=== PATIENT | female | born 1960 | race Caucasian/White ===

== ENCOUNTER 2017-12-22 17:48 | Observation (INO) | payer OTHER ==
--- OUTSIDE RECORDS SUMMARY | 2017-12-22 17:51 | XMS REPORT | Clinical Summary ---
:1960 Author Organization [facility] Address [address] [place] [address] Care Team Providers Name Role Phone Asked, No Pcp Primary Care Provider Unavailable Allergies Active Allergy Reactions Severity Noted Date Comments Penicillins 04/10/2016 Current Medications Prescription Sig. Disp. Refills Start Date End Date Status HYDROcodone-acetamino Take 1 tablet by Active phen (NORCO) 10-325 mouth every 6 mg per tablet (six) hours as needed for moderate pain. albuterol (PROAIR Inhale 2 puffs Active HFA,PROVENTIL every 6 (six) HFA,VENTOLIN HFA) 90 hours as needed mcg/actuation inhaler for wheezing. aspirin (ECOTRIN) 81 Take 81 mg by Active MG enteric coated mouth daily. tablet budesonide-formoterol Inhale 2 puffs 2 Active (SYMBICORT) 160-4.5 (two) times a mcg/actuation inhaler day. ferrous sulfate 325 Take 325 mg by Active (65 FE) MG tablet mouth daily with breakfast. furosemide (LASIX) 20 Take 20 mg by Active mg tablet mouth 2 (two) times a day. atorvastatin Take 80 mg by Active (LIPITOR) 80 MG mouth daily. tablet metoprolol tartrate Take 12.5 mg by Active (LOPRESSOR) 25 mg mouth 2 (two) tablet times a day. potassium chloride Take 20 mEq by Active (K-DUR) 20 MEQ CR mouth 2 (two) tablet times a day. FLUoxetine (PROzac) Take 20 mg by Active 20 MG capsule mouth daily. Take 3 tabs daily valACYclovir Take 1,000 mg by Active (VALTREX) 1000 MG mouth 3 (three) tablet times a day. azithromycin Take 1 tablet 5 tablet 0 05/17/2017 05/22/2017 (ZITHROMAX) 500 MG (500 mg total) tablet by mouth daily for 5 days. predniSONE Take 1 tablet 5 tablet 0 05/17/2017 05/22/2017 (DELTASONE) 50 mg (50 mg total) by tablet mouth daily for 5 days. albuterol (PROAIR Inhale 2 puffs 1 Inhaler 0 05/17/2017 06/16/2017 HFA,PROVENTIL every 4 (four) HFA,VENTOLIN HFA) 90 hours as needed mcg/actuation inhaler for wheezing for up to 30 days. Active Problems No known active problems Encounters Date Type Specialty Care Team Description 05/17/2017 Emergency Emergency Medicine Mark Bonilla COPD exacerbation MD César (Primary Dx) after 12/21/2016 Family History Medical History Relation Name Comments Diabetes Brother Heart disease Brother Heart disease Mother Relation Name Status Comments Brother Mother Social History Tobacco Use Types Packs/Day Years Used Date Former Smoker Smokeless Tobacco: Never Used Alcohol Use Drinks/Week oz/Week Comments No Sex Assigned at Date Recorded Not on file Last Filed Vital Signs Vital Sign Reading Time Taken Blood Pressure 128/77 05/17/2017 11:33 AM RETREADER Pulse 102 05/17/2017 12:15 PM RETREADER Temperature 37 C (98.6 F) 05/17/2017 11:33 AM RETREADER Respiratory Rate 24 05/17/2017 12:15 PM RETREADER Oxygen Saturation 93% 05/17/2017 12:10 PM RETREADER Inhaled Oxygen Concentration - - Weight - - Height 157.5 cm (5' 2") 05/17/2017 11:30 AM RETREADER Body Mass Index - - Plan of Treatment Health Maintenance Due Date Last Done Comments CERVICAL CANCER SCREENING 12/02/1979 BREAST CANCER SCREENING 2008 COLON CANCER SCREENING 2008 SHINGRIX VACCINE (#1) 2008 INFLUENZA VACCINE 11/06/2017 Procedures Procedure Name Priority Date/Time Associated Comments Diagnosis RESPIRATORY PATHOGEN STAT 05/17/2017 12:42 Results for this PANEL PM RETREADER procedure are in the results section. INFLUENZA ANTIGEN Routine 05/17/2017 12:42 Results for this PM RETREADER procedure are in the results section. ZZESTIMATED GFR STAT 05/17/2017 12:22 Results for this PM RETREADER procedure are in the results section. HC COMPLETE BLD COUNT STAT 05/17/2017 12:22 Results for this W/AUTO DIFF PM RETREADER procedure are in the results section. BASIC METABOLIC PANEL STAT 05/17/2017 12:22 Results for this PM RETREADER procedure are in the results section. XR CHEST 2 VW STAT 05/17/2017 12:09 Results for this PM RETREADER procedure are in the results section. after 12/21/2016 Results Respiratory pathogen panel (05/17/2017 12:42 PM) Respiratory pathogen Negative for all pathogens tested: [facility] DEPARTMENT OF panel Negative for Adenovirus PATHOLOGY AND GENOMIC Negative for Coronavirus HKU1 MEDICINE Negative for Coronavirus NL63 Negative for Coronavirus 229E Negative for Coronavirus OC43 Negative for Human Metapneumovirus Negative for Rhinovirus/Enterovirus Negative for Influenza A Negative for Influenza A/H1 Negative for Influenza A/H3 Negative for Influenza A/H1-2009 Negative for Influenza B Negative for Parainfluenza Virus 1 Negative for Parainfluenza Virus 2 Negative for Parainfluenza Virus 3 Negative for Parainfluenza Virus 4 Negative for Respiratory Syncytial Virus Negative for Bordetella pertussis Negative for Chlamydophila pneumoniae Negative for Mycoplasma pneumoniae This real-time PCR assay detects the presence of nucleic acids (RNA or DNA) for the respiratory pathogens listed. A result of "Not-detected" does not exclude the possibility of the presence of one or more pathogens at concentrations less than the detectable limits of the assay. Comment: Specimen Information Specimen Source: Nasopharyngeal Specimen Site: swab Specimen Nasopharyngeal Performing Organization Address City/State/Zipcode Phone Number [facility] DEPARTMENT OF PATHOLOGY AND [address] [place] [address] Group Therapy Records MEDICINE Influenza antigen (05/17/2017 12:42 PM) Influenza antigen Negative for Influenza A/B antigen. [facility] DEPARTMENT OF PATHOLOGY Comment: AND GENOMIC MEDICINE Specimen Information Specimen Source: Nares Specimen Site: Right Specimen Nares - Right Performing Organization Address City/State/Zipcode Phone Number [facility] DEPARTMENT OF PATHOLOGY AND [address] [place] [address] GENOMIC MEDICINE Estimated GFR (05/17/2017 12:22 PM) GFR Non Af Amer 74 mL/min/1.73 m2 [facility] DEPARTMENT OF PATHOLOGY AND GENOMIC MEDICINE GFR Af Amer 89 mL/min/1.73 m2 [facility] DEPARTMENT OF Comment: PATHOLOGY AND GENOMIC Chronic kidney disease: <60 mL/min/1.73m2 MEDICINE Kidney failure: <15 mL/min/1.73m2 The estimated GFR is calculated from the IDMS-traceable Modification of Diet in Renal Disease Equation. The accuracy of the calculation is poor when the creatinine is normal. Calculated values >90 mL/min/1.73m2 are not reported. This equation has not been validated in children (<18 years), women, the elderly (>70 years), or ethnic groups other than Caucasians and Americans. Specimen Plasma specimen Performing Organization Address City/State/Zipcode Phone Number [facility] DEPARTMENT OF PATHOLOGY AND [place] [address] [facility] CBC with platelet and differential (05/17/2017 12:22 PM) WBC 3.8 (L) 4.2 - 11.0 k/uL [facility] DEPARTMENT OF PATHOLOGY AND GENOMIC MEDICINE RBC 4.81 4.04 - 5.86 m/uL [facility] DEPARTMENT OF PATHOLOGY AND GENOMIC MEDICINE HGB 13.4 11.5 - 15.3 g/dL [facility] DEPARTMENT OF PATHOLOGY AND GENOMIC MEDICINE HCT 41.2 34.0 - 45.0 % [facility] DEPARTMENT OF PATHOLOGY AND GENOMIC MEDICINE MCV 85.7 80.0 - 98.0 fL [facility] DEPARTMENT OF PATHOLOGY AND GENOMIC MEDICINE MCH 27.9 27.0 - 34.0 pg [facility] DEPARTMENT OF PATHOLOGY AND GENOMIC MEDICINE MCHC 32.5 31.5 - 36.5 g/dL [facility] DEPARTMENT OF PATHOLOGY AND GENOMIC MEDICINE RDW - SD 45.5 37.0 - 51.0 fL [facility] DEPARTMENT OF PATHOLOGY AND GENOMIC MEDICINE MPV 10.2 7.4 - 10.4 fL [facility] DEPARTMENT OF PATHOLOGY AND GENOMIC MEDICINE Platelet count 140 (L) 150 - 400 k/uL [facility] DEPARTMENT OF PATHOLOGY AND GENOMIC MEDICINE Nucleated RBC 0.00 /100 WBC [facility] DEPARTMENT OF PATHOLOGY AND GENOMIC MEDICINE Neutrophils 70.0 (H) 36.0 - 66.0 % [facility] DEPARTMENT OF PATHOLOGY AND GENOMIC MEDICINE Lymphocytes 13.1 (L) 24.0 - 44.0 % [facility] DEPARTMENT OF PATHOLOGY AND GENOMIC MEDICINE Monocytes 13.1 (H) 0.0 - 6.0 % [facility] DEPARTMENT OF PATHOLOGY AND GENOMIC MEDICINE Eosinophils 2.4 0.0 - 6.0 % [facility] DEPARTMENT OF PATHOLOGY AND GENOMIC MEDICINE Basophils 1.1 0.0 - 1.2 % [facility] DEPARTMENT OF PATHOLOGY AND GENOMIC MEDICINE Immature granulocytes 0.3 0.0 - 1.0 % [facility] DEPARTMENT OF PATHOLOGY AND GENOMIC MEDICINE Specimen Blood Performing Organization Address City/[facility] Phone Number [facility] DEPARTMENT OF PATHOLOGY AND [address] [place] [address] [facility] Basic metabolic panel (05/17/2017 12:22 PM) Sodium 139 135 - 150 mEq/L [facility] DEPARTMENT OF PATHOLOGY AND GENOMIC MEDICINE Potassium 4.0 3.5 - 5.0 mEq/L [facility] DEPARTMENT OF PATHOLOGY AND GENOMIC MEDICINE Chloride 106 100 - 109 mEq/L [facility] DEPARTMENT OF PATHOLOGY AND GENOMIC MEDICINE CO2 26 24 - 32 mmol/L [facility] DEPARTMENT OF PATHOLOGY AND GENOMIC MEDICINE Anion gap 7 7 - 15 mEq/L [facility] DEPARTMENT OF Comment: PATHOLOGY AND GENOMIC Starting from July , anion gap calculation MEDICINE no longer incorporates potassium. Please note the change. BUN 12 7 - 18 mg/dL [facility] DEPARTMENT OF PATHOLOGY AND GENOMIC MEDICINE Creatinine 0.8 0.8 - 1.5 mg/dL [facility] DEPARTMENT OF PATHOLOGY AND GENOMIC MEDICINE Glucose 100 65 - 100 mg/dL [facility] DEPARTMENT OF PATHOLOGY AND GENOMIC MEDICINE Calcium 8.6 8.6 - 10.7 mg/dL [facility] DEPARTMENT OF PATHOLOGY AND GENOMIC MEDICINE Specimen Plasma specimen Performing Organization Address [facility] Phone Number [facility] DEPARTMENT OF PATHOLOGY AND [place] [address] [facility] XR Chest 2 Vw (05/17/2017 12:09 PM) Narrative Performed At EXAMINATION: XR CHEST 2 VW RADIANT INDICATION: Chest Pain COMPARISON: 05/26/2016 IMPRESSION: Emphysematous appearance of the lungs without a focal visible infiltrate. Persistent blunting of the right costophrenic sulcus likely represents focal pleural fibrosis. Heart size is within normal limits. Prior sternotomy. No effusion or pneumothorax. Multilevel spondylosis thoracic spine. Right upper quadrant surgical clips. [id number] Procedure Note Interface, Radiology Results Incoming - 05/17/2017 12:17 PM RETREADER EXAMINATION: XR CHEST 2 VW INDICATION: Chest Pain COMPARISON: 05/26/2016 IMPRESSION: Emphysematous appearance of the lungs without a focal visible infiltrate. Persistent blunting of the right costophrenic sulcus likely represents focal pleural fibrosis. Heart size is within normal limits. Prior sternotomy. No effusion or pneumothorax. Multilevel spondylosis thoracic spine. Right upper quadrant surgical clips. [id number] Performing Organization Address City/State/Zipcode Phone Number [facility] [address] [place] [address] after 12/21/2016 Insurance Payer Benefit Plan / Group Subscriber ID Type Phone Address [facility] MEDICAID [facility] COMM [employer]AR+ DOMINIQUE xxxxxxxxx O [phone] [place] [address]
[2017-12-22 19:00] LABS: Absolute Lymphocytes (CBC) 1.6 K/uL (0.7-4.9); Absolute Monocytes 0.6 K/uL (0.1-1.3); Absolute Neutrophil 4.7 K/uL (1.8-8.0); Basophils % 0.8 % (0-1.3); Eosinophils % 2.1 % (0-4.4); Hematocrit 40.3 % (36.0-45.0); Lymphocytes % 22.7 % (15.3-44.8); MCH 28.5 pg (27.0-35.0); MCV 84.9 fL (80-100); MPV 8.9 fL (7.6-11.3); Monocytes % 7.8 % (3.3-12.3); RBC Red Blood Cell Count 4.75 M/uL (3.86-4.86)
[2017-12-22 19:11] LABS: Protime INR 1.1
[2017-12-22 19:21] LABS: ALT/SGPT 25 U/L (12-78); AST/SGOT 23 U/L (15-37); Alkaline Phosphatase 113 U/L (45-117); BUN Blood Urea Nitrogen 13 mg/dL (7-18); Bicarbonate 27 mmol/L (21-32); Bilirubin Direct 0.1 mg/dL (0-0.2); Bilirubin Total 0.4 mg/dL (0.2-1.0); CKMB Creatine Kinase MB 1.3 ng/mL (0.3-3.6); Creatine Phosphokinase 104 U/L (26-192); Glucose Level 107 mg/dL (74-106); Magnesium 2.3 mg/dL (1.8-2.4); NT PRO-BNP 139 pg/mL (<125); Potassium 3.7 mmol/L (3.5-5.1); Protein, Total 7.1 g/dL (6.4-8.2); Sodium Level 144 mmol/L (136-145); Troponin (Emerg Dept Use Only) < 0.02 ng/mL (0.0-0.045)
--- NOTE | 2017-12-22 19:39 | RAD REPORT ---
EXAM DESCRIPTION: RAD - Chest Single View - 12/22/2017 7:00 pm CLINICAL HISTORY: Left-sided chest pain COMPARISON: None. TECHNIQUE: AP portable chest image was obtained 1854 hours . FINDINGS: Lungs are clear. Heart and vasculature are normal. Right costophrenic angle blunting is pr esent probably scarring rather than effusion. No pneumothorax. No gross bony abnormality seen. No acu te aortic findings suspected. CABG surgical changes are noted. IMPRESSION: No acute cardiopulmonary process.
--- NOTE | 2017-12-22 19:57 | EDPHYS ---
Physician Documentation [facility] Name: Olena Orourke Age: 57 yrs Sex: Female : 1960 Arrival Date: 12/22/2017 Time: 17:52 Bed 15 Private MD: None, None ED Physician Vilma Rock HPI: 12/22 18:05 This 57 yrs old Female presents to ER via Ambulatory with complaints of Chest jmm Pain, Hand Swelling. 18:05 The patient or guardian reports chest pain that is located primarily in the substernal jmm area. Onset: gradually, 2 day(s) ago. The pain radiates to the left scapula. Associated signs and symptoms: Pertinent positives: diaphoresis, shortness of breath. The chest pain is described as aching, a pressure. Duration: The patient or guardian reports a single episode, that is still ongoing. Modifying factors: The symptoms are alleviated by nothing. the symptoms are aggravated by exertion. This is a 57 year old female with a history COPD, HTN, GA that presents to the ED with substernal chest pain which radiates to the left scapular region beginning approx 2 days ago. Symptoms are worsened with exertion. . Patient also complains of pain and swelling to her left hand. Patient denies fever or trauma. Patient currently is taking plavix and aspirin daily. . Historical: - Allergies: 17:57 PENICILLINS; aa5 - Home Meds: 18:15 aspirin 325 mg Oral tab 1 tab once daily [Active]; lisinopril 2.5 mg Oral tab 1 tab tw2 once daily [Active]; carvedilol 6.25 mg oral tab 1 tab 2 times per day [Active]; clopidogrel 75 mg oral tab 1 tab once daily [Active]; atorvastatin 80 mg oral tab 1 tab once daily [Active]; Xopenex 0.63 mg/3 mL inhalation nebu [Active]; Prozac 20 mg Oral cap 1 cap 3 times a day [Active]; quetiapine 300 mg oral tab 1 tab once daily [Active]; - PMHx: 17:57 Hypertension; COPD; Myocardial infarction; aa5 - PSHx: 17:57 Heart stents; triple bypass; aa5 - Immunization history:: Adult Immunizations up to date. - Social history:: Smoking status: Patient uses tobacco products, denies chronic smoking, but will smoke occasionally. - Ebola Screening: : No symptoms or risks identified at this time. ROS: 18:05 Constitutional: Negative for fever, chills, and weight loss. jmm 18:05 Respiratory: Negative for shortness of breath, cough, wheezing, and pleuritic chest pain, Abdomen/GI: Negative for abdominal pain, nausea, vomiting, diarrhea, and constipation. 18:05 Cardiovascular: Positive for chest pain. 18:05 MS/extremity: Positive for pain. 18:05 All other systems are negative. Exam: 18:05 Head/Face: atraumatic. jmm 18:05 Constitutional: The patient appears in no acute distress, alert, awake. 18:05 Chest/axilla: Inspection: normal. 18:05 Cardiovascular: Rate: normal, Rhythm: regular. 18:05 Respiratory: the patient does not display signs of respiratory distress, Respirations: normal, Breath sounds: are clear throughout. 18:05 Abdomen/GI: Inspection: abdomen appears normal, Bowel sounds: normal, Palpation: abdomen is soft and non-tender, in all quadrants. 18:05 Musculoskeletal/extremity: ROM: intact in all extremities, ecchymosis noted to the left hand at the region of the 4th and 5th mtp, mild swelling is appreciated, painful flexion is appreciated, compartments are soft, NVI. 18:05 Skin: ecchymosis noted to the left hand. 18:05 Neuro: Orientation: is normal, Mentation: is normal, Memory: is normal. 18:05 Psych: Behavior/mood is pleasant, cooperative. Vital Signs: 17:58 BP 169 / 110; Pulse 104; Resp 20 S; Temp 98.1(O); Pulse Ox 97% on R/A; Weight 82.55 kg aa5 (R); Height 5 ft. 2 in. (157.48 cm) (R); Pain 8/10; 18:26 BP 163 / 106; Pulse 98; Resp 22; Pulse Ox 96% on R/A; tw2 19:27 BP 147 / 96; Pulse 92; Resp 16; Pulse Ox 97% on R/A; aa1 20:33 BP 144 / 95; Pulse 87; Resp 16; Pulse Ox 97% ; aa1 20:56 BP 134 / 86; Pulse 83; Resp 15; Pulse Ox 97% on R/A; aa1 17:58 Body Mass Index 33.29 (82.55 kg, 157.48 cm) aa5 MDM: 18:14 Patient medically screened. [facility] 19:56 Data reviewed: vital signs, nurses notes, lab test result(s), radiologic studies, plain [facility] films. Counseling: I had a detailed discussion with the patient and/or guardian regarding: the historical points, exam findings, and any diagnostic results supporting the discharge/admit diagnosis, lab results, radiology results, the need for further work-up and treatment in the hospital. ED course: I discussed the patient with Dr. Sears whom accepted admission. . 12/22 18:07 Order name: Basic Metabolic Panel; Complete Time: 19:24 [facility] 12/22 18:07 Order name: CBC with Diff; Complete Time: 19:20 [facility] 12/22 18:07 Order name: Ckmb; Complete Time: 19:24 [facility] 12/22 18:07 Order name: CPK; Complete Time: 19:24 [facility] 12/22 18:07 Order name: LFT's; Complete Time: 19:24 [facility] 12/22 18:07 Order name: Magnesium; Complete Time: 19:24 [facility] 12/22 18:07 Order name: NT PRO-BNP; Complete Time: 19:24 [facility] 12/22 18:07 Order name: PT-INR; Complete Time: 19:43 [facility] 12/22 18:07 Order name: Ptt, Activated; Complete Time: 19:43 [facility] 12/22 18:07 Order name: Troponin (emerg Dept Use Only); Complete Time: 19:24 [facility] 12/22 20:19 Order name: Basic Metabolic Panel [facility] 12/22 20:19 Order name: Basic Metabolic Panel [facility] 12/22 20:19 Order name: CBC with Automated Diff [facility] 12/22 20:19 Order name: CBC with Automated Diff [facility] 12/22 18:07 Order name: XRAY Chest (1 view); Complete Time: 19:43 [facility] 12/22 18:07 Order name: EKG; Complete Time: 18:08 [facility] 12/22 18:07 Order name: Cardiac monitoring; Complete Time: 18:13 [facility] 12/22 18:07 Order name: EKG - Nurse/Tech; Complete Time: 18:13 [facility] 12/22 20:19 Order name: CONS Physician Consult [facility] 12/22 20:19 Order name: Heart Healthy [facility] 12/22 20:19 Order name: Echo with Doppler [facility] 12/22 20:19 Order name: EKG Electrocardiogram [facility] 12/22 20:19 Order name: EKG Electrocardiogram [facility] 12/22 20:19 Order name: Lipid Profile [facility] 12/22 20:19 Order name: Lipid Profile [facility] 12/22 20:19 Order name: Troponin I [facility] 12/22 20:19 Order name: Troponin I [facility] 12/22 20:19 Order name: Troponin I [facility] 12/22 18:07 Order name: IV Saline Lock; Complete Time: 18:26 [facility] 12/22 18:07 Order name: Labs collected and sent; Complete Time: 18:26 [facility] 12/22 18:07 Order name: O2 Per Protocol; Complete Time: 18:26 [facility] 12/22 18:07 Order name: O2 Sat Monitoring; Complete Time: 18:26 [facility] Administered Medications: 20:02 Drug: morphine 4 mg Route: IVP; Site: left antecubital; ea 21:00 Follow up: Response: No adverse reaction; Pain is decreased aa1 20:02 Drug: Zofran 4 mg Route: IVP; Site: left antecubital; ea 21:00 Follow up: Response: No adverse reaction aa1 Disposition: 12/22/17 19:57 Hospitalization ordered by Vilma Sears for Observation. Preliminary diagnosis is Chest pain, unspecified. - Bed requested for Telemetry/MedSurg (observation). - Status is Observation. aa1 - Condition is Stable. - Problem is new. - Symptoms have improved. UTI on Admission? No Signatures: Dispatcher [employer] [facility] Minnie Burt RN VELMA Angela Watts RN RN aa1 Edison Hawkins PA PA m Candi Koenig, RN RN aa5 Nurys Smart, RN RN tw2 Caryn Elaine RN VELMA ea Corrections: (The following items were deleted from the chart) 20:04 19:57 Hospitalization Ordered by Vilma Sears MD for Observation. Preliminary diagnosis is Chest pain, unspecified. Bed requested for Telemetry/MedSurg (observation). Status is Observation. Condition is Stable. Problem is new. Symptoms have improved. UTI on Admission? No. [facility] 21:02 20:04 12/22/2017 19:57 Hospitalization Ordered by Vilma Sears MD for Observation. aa1 Preliminary diagnosis is Chest pain, unspecified. Bed requested for Telemetry/MedSurg (observation). Status is Observation. Condition is Stable. Problem is new. Symptoms have improved. UTI on Admission? No. mw
--- NOTE | 2017-12-22 19:57 | ER ---
Nurse's Notes [facility] Name: Olena Orourke Age: 57 yrs Sex: Female : 1960 Arrival Date: 12/22/2017 Time: 17:52 Bed 15 Private MD: None, None Diagnosis: Chest pain, unspecified Presentation: 12/22 17:55 Presenting complaint: Patient states: left breast pain radiating to left scapular area aa5 since yesterday. Pt also reports bruising to left hand, denies injury. Pt also reports dry cough and SOB. Transition of care: patient was not received from another setting of care. Onset of symptoms was December 2017. Risk Assessment: Do you want to hurt yourself or someone else? Patient reports no desire to harm self or others. Initial Sepsis Screen: Does the patient meet any 2 criteria? HR > 90 bpm. Does the patient have a suspected source of infection? No. Patient's initial sepsis screen is negative. Care prior to arrival: None. 17:55 Method Of Arrival: Ambulatory aa5 17:55 Acuity: ERIC 3 aa5 Historical: - Allergies: 17:57 PENICILLINS; aa5 - Home Meds: 18:15 aspirin 325 mg Oral tab 1 tab once daily [Active]; lisinopril 2.5 mg Oral tab 1 tab tw2 once daily [Active]; carvedilol 6.25 mg oral tab 1 tab 2 times per day [Active]; clopidogrel 75 mg oral tab 1 tab once daily [Active]; atorvastatin 80 mg oral tab 1 tab once daily [Active]; Xopenex 0.63 mg/3 mL inhalation nebu [Active]; Prozac 20 mg Oral cap 1 cap 3 times a day [Active]; quetiapine 300 mg oral tab 1 tab once daily [Active]; - PMHx: 17:57 Hypertension; COPD; Myocardial infarction; aa5 - PSHx: 17:57 Heart stents; triple bypass; aa5 - Immunization history:: Adult Immunizations up to date. - Social history:: Smoking status: Patient uses tobacco products, denies chronic smoking, but will smoke occasionally. - Ebola Screening: : No symptoms or risks identified at this time. Screenin:06 Abuse screen: Denies threats or abuse. Nutritional screening: No deficits noted. tw2 Tuberculosis screening: No symptoms or risk factors identified. Fall Risk None identified. Assessment: 18:04 General: Appears in no apparent distress. Behavior is anxious. Pain: Complains of pain tw2 in chest Pain radiates to left arm Pain began 2-3 days ago. Neuro: Level of Consciousness is awake, alert, obeys commands, Oriented to person, place, time, situation. Cardiovascular: Heart tones S1 S2 Capillary refill < 3 seconds Patient's skin is warm and dry. Respiratory: Airway is patent Respiratory effort is even, unlabored, Respiratory pattern is regular, symmetrical, Breath sounds are clear bilaterally. GI: No signs and/or symptoms were reported involving the gastrointestinal system. Abdomen is round non-distended, Bowel sounds present X 4 quads. : No signs and/or symptoms were reported regarding the genitourinary system. EENT: No signs and/or symptoms were reported regarding the EENT system. Derm: Bruising that is on left hand Parent/caregiver reports the patient having pain and swelling noted to left hand. Musculoskeletal: Circulation, motion, and sensation intact. Range of motion: intact in all extremities. 18:16 Reassessment: PCP: Dr. Aguayo #[phone] [facility]. [place] 19:33 Reassessment: Patient appears in no apparent distress at this time. Patient and/or aa1 family updated on plan of care and expected duration. Pain level reassessed. Patient is alert, oriented x 3, equal unlabored respirations, skin warm/dry/pink. Awaiting test resutlts. 20:35 Reassessment: Patient appears in no apparent distress at this time. Patient and/or aa1 family updated on plan of care and expected duration. Pain level reassessed. Patient is alert, oriented x 3, equal unlabored respirations, skin warm/dry/pink. Attempted to call report to 4th floor, was placed on hold with no answer. 20:45 Reassessment: Report given to Obdulia on 4th floor. aa1 Vital Signs: 17:58 BP 169 / 110; Pulse 104; Resp 20 S; Temp 98.1(O); Pulse Ox 97% on R/A; Weight 82.55 kg aa5 (R); Height 5 ft. 2 in. (157.48 cm) (R); Pain 8/10; 18:26 BP 163 / 106; Pulse 98; Resp 22; Pulse Ox 96% on R/A; tw2 19:27 BP 147 / 96; Pulse 92; Resp 16; Pulse Ox 97% on R/A; aa1 20:33 BP 144 / 95; Pulse 87; Resp 16; Pulse Ox 97% ; aa1 20:56 BP 134 / 86; Pulse 83; Resp 15; Pulse Ox 97% on R/A; aa1 17:58 Body Mass Index 33.29 (82.55 kg, 157.48 cm) aa5 ED Course: 17:52 Patient arrived in ED. mr 17:53 None, None is Private Physician. mr 17:55 Arm band placed on. aa5 17:57 Triage completed. aa5 18:00 Nurys Smart RN is Primary Nurse. tw2 18:00 Placed in gown. Bed in low position. Call light in reach. phototypesetting equipment monitor on. Pulse ox tw2 on. NIBP on. Warm blanket given. 18:00 Patient maintains SpO2 saturation greater than 95% on room air. tw2 18:07 Edison Hawkins PA is PHCP. [facility] 18:07 Vilma Rock MD is Attending Physician. [facility] 18:12 Patient has correct armband on for positive identification. Side rails up X 1. 5 18:12 EKG done, by ED staff, reviewed by Vilma Rock MD. [facility] 18:42 Missed attempt(s): 22 gauge in left in right antecubital area. [facility] 18:54 Report given to VELMA Miller. tw2 18:54 Inserted saline lock: 22 gauge in left antecubital area, using aseptic technique. Blood tw2 collected. 19:00 XRAY Chest (1 view) In Process Unspecified. EDMS 19:56 Vilma Sears MD is Hospitalizing Provider. m 20:34 No provider procedures requiring assistance completed. Patient admitted, IV remains in aa1 place. Administered Medications: 20:02 Drug: morphine 4 mg Route: IVP; Site: left antecubital; ea 21:00 Follow up: Response: No adverse reaction; Pain is decreased aa1 20:02 Drug: Zofran 4 mg Route: IVP; Site: left antecubital; ea 21:00 Follow up: Response: No adverse reaction [facility] Outcome: 19:57 Decision to Hospitalize by Provider. jmm 21:01 Admitted to Tele accompanied by tech, via wheelchair, room 406, with chart, Report aa1 called to Obdulia 21:01 Condition: stable 21:01 Instructed on the need for admit, Demonstrated understanding of instructions. 21:02 Patient left the ED. aa1 Signatures: Dispatcher [employer] EDMS Angela Watts, RN RN aa1 Edison Hawkins PA PA jmm Rivera, Maria mr AryaCandi, RN RN aa5 Ranulfo Nicolas RN RN la1 Wise, Tara, RN RN Roxann Oliver [facility] Caryn Elaine RN VELMA Corrections: (The following items were deleted from the chart) 21:02 20:56 BP 134 / 86; Pulse 83bpm; Resp 75bpm; Pulse Ox 97% RA; [facility]
[2017-12-22] MEDS ORDERED: ONDANSETRON 4 MG/2 ML VIAL ONE (20:02)
[2017-12-22] MEDS ORDERED: MORPHINE 4 MG/ML SYR ONE (20:02)
[2017-12-22] MEDS ORDERED: MORPHINE 4 MG/ML SYR IV PRN (20:16)
[2017-12-22] MEDS ORDERED: ALPRAZOLAM 0.25 MG TABLET PO PRN (20:16)
[2017-12-22] MEDS ORDERED: ACETAMINOPHEN 500 MG TAB PO PRN (20:53)
[2017-12-22] MEDS ORDERED: METOPROLOL TAR 50 MG TAB PO SCH (21:00)
[2017-12-22 22:44] VITALS: BMI 33.3
[2017-12-23] MEDS ORDERED: NA CHLORIDE 0.9% 500 ML IV ONE ×2 (00:18→01:18)
[2017-12-23] MEDS ORDERED: HYDROCORTISONE SUC 100 MG INJ IV ONE (01:17)
[2017-12-23] MEDS ORDERED: FENTANYL CITR 100 MCG/2 ML IV PRN (04:06)
--- NOTE | 2017-12-23 04:06 | P.HP ---
Certification for Inpatient Patient admitted to: Observation With expected LOS: <2 Midnights Patient will require the following post-hospital care: None Practitioner: I am a practitioner with admitting privileges, knowledge of patient current condition, hospital course, and medical plan of care. Services: Services provided to patient in accordance with Admission requirements found in Title 42 Section 412.3 of the Code of Federal Regulations Patient History Date of Service: 12/22/17 Reason for admission: Chest pain shortness of breath History of Present Illness: Patient is a 57-year-old female came into the hospital with chest discomfort. Patient also had shortness of breath. Patient's history of COPD and she has been using inhalers at home. She does continue to smoke but only is smoking 3 cigarettes a day now. She uses a gum puller in the [place] area. She also has been having chest pain. She has a history of coronary artery disease status post coronary artery bypass grafting x3 vessel. She did have a cardiac workup about a year ago which she states did not reveal any significant abnormalities. She does not have congestive heart failure. She does have bipolar disorder for which she takes Seroquel. Her chest pain was in the sternal region and radiated down to her left arm. She has some paresthesias in the left arm. So had a headache. The headache is more throbbing. She has been given pain medication which has not alleviated her chest pain. She will be admitted to the hospital for observation. Allergies Penicillins Allergy (Verified 12/22/17 20:32) Itching/Hives/Rash Home Medications: Aspirin [Aspirin EC 325 MG] 325 mg PO DAILY 12/22/17 Fluoxetine HCl [Prozac*] 20 mg PO TID 12/22/17 Levalbuterol Tartrate [Xopenex Hfa] 1 puff IN QID 12/22/17 RX: Atorvastatin Calcium [Lipitor] 80 mg PO DAILY 12/22/17 RX: Carvedilol [Coreg*] 6.25 mg PO BID 12/22/17 RX: Clopidogrel Bisulfate [Plavix*] 75 mg PO DAILY 12/22/17 RX: Lisinopril [Prinivil*] 2.5 mg PO DAILY 12/22/17 RX: Quetiapine [Seroquel*] 300 mg PO BEDTIME 12/22/17 - Past Medical/Surgical History Diabetic: No -: [place] 2014 -: HTN -: COPD -: triple bypass 2015 -: fusion in the neck - Family History Mother Medical History: Heart disease Father Medical History: Cancer Notes: colon Brother Medical History: Heart disease, Diabetes, Liver disease - Social History Smoking Status: Current every day smoker Alcohol use: No CD- Drugs: No Caffeine use: Yes Place of Residence: Home Physical Examination - Vital Signs Temperature: 97.1 F Blood Pressure: 85/55 Pulse: 65 Respirations: 75 Pulse Ox (%): 97 - Studies Laboratory Data (last 24 hrs) 12/22/17 18:50: PT 13.0 H, INR 1.10, APTT 38.2 H 12/22/17 18:50: WBC 7.1, Hgb 13.5, Hct 40.3, Plt Count 183 12/22/17 18:50: Sodium 144, Potassium 3.7, BUN 13, Creatinine 0.90, Glucose 107 H, Magnesium 2.3, Total Bilirubin 0.4, AST 23, ALT 25, Alkaline Phosphatase 113 Assessment & Plan - Plan Assessment: 1. Chest pain rule out acute coronary syndrome 2. COPD exacerbation, acute 3. Persistent headache 4. History of coronary artery disease status post CABG x3 5. History of tobacco use 6. History of bipolar disorder 7. History of hypertension 8. Hypotension at this time most likely related to medication Plan: 1. Serial troponins and EKG 2. Cardiology consultation 3. Echocardiogram and possible stress test in the morning if serial troponins and EKG are negative 4. Anti-platelet therapy, anti coagulation, beta-mehnaz, statin, and O2 as needed 5. Will give IV fentanyl for pain 6. Hold medications that may cause her blood pressure the lower including beta- mehnaz 7. Nicotine patches needed 8. Nebs and steroids for COPD exacerbation 9. Continue Seroquel 10. GI and DVT prophylaxis Check orthostatics in the morning & bolus IV fluids as needed for hypotension. If blood pressure continues to go down then we may need to check thyroid studies as well as adrenal studies. - Advance Directives Does patient have a Living Will: No Does patient have a Durable POA for Healthcare: No - Code Status/Comfort Care Code Status Assessed: Yes Code Status: Full Code Critical Care: No Time Spent Managing PTS Care (In Minutes): 50
[2017-12-23] MEDS ORDERED: NA CHLORIDE 0.9% 1,000 ML IV SCH (05:00)
[2017-12-23 05:34] LABS: Urine Appearance CLOUDY; Urine Bilirubin NEGATIVE (NEG); Urine Blood NEGATIVE (NEG); Urine Color YELLOW; Urine Glucose NEGATIVE (NEG); Urine Protein NEGATIVE (NEG); Urine Urobilinogen 0.2 mg/dL (0.2-1.0); Urine pH 5.5 (5.0-7.0)
[2017-12-23 05:35] LABS: Urine Microscopic Reflex ORDER UMIC
[2017-12-23 05:42] LABS: Urine Culture Reflex Order REFLEXED
[2017-12-23 05:43] LABS: Urine Bacteria LOADED /HPF (<20); Urine RBC <5 /HPF (NONE SEEN)
[2017-12-23 05:59] LABS: Absolute Lymphocytes (CBC) 0.7 K/uL (0.7-4.9); Absolute Monocytes 0.1 K/uL (0.1-1.3); Absolute Neutrophil 4.7 K/uL (1.8-8.0); Basophils % 0.5 % (0-1.3); Eosinophils % 0.7 % (0-4.4); Hematocrit 36.8 % (36.0-45.0); Lymphocytes % 13.2 % (15.3-44.8); MCV 84.7 fL (80-100); RBC Red Blood Cell Count 4.35 M/uL (3.86-4.86)
[2017-12-23] MEDS ORDERED: ALBUTEROL 2.5 MG/3 ML NEB SOL NEB SCH (06:00)
[2017-12-23] MEDS ORDERED: IPRATROPIUM BROM 0.5MG/2.5ML NEB SCH (06:00)
[2017-12-23] MEDS ORDERED: METHYLPREDNISOLONE 125 MG INJ IV SCH (06:00)
[2017-12-23 06:01] LABS: Potassium 4.1 mmol/L (3.5-5.1)
--- NOTE | 2017-12-23 06:51 | EKG ---
Test Date: 2017-12-22 Test Time: 18:03:54 Event Decorator And Designer: SHARLENE MEASUREMENT RESULTS: Intervals: Rate: 101 MI: 162 QRSD: 136 QT: 382 QTc: 495 [employer]: P: 61 MI: 162 QRS: 43 T: 48 INTERPRETIVE STATEMENTS: Sinus tachycardia Possible Left atrial enlargement Right bundle branch block Abnormal ECG No previous ECG available for comparison Electronically Signed On 12-23-17 06:50:55 CDT by Rubens Alex
[2017-12-23] MEDS ORDERED: REGADENOSON 0.4 MG/5 ML SYR IV ONE (07:54)
[2017-12-23 08:38] VITALS: BP 106/75; TEMP 97.5
[2017-12-23] MEDS ORDERED: METOPROLOL TAR 50 MG TAB PO SCH (09:00)
[2017-12-23] MEDS ORDERED: ASPIRIN EC 81 MG TAB PO SCH (09:00)
[2017-12-23] MEDS ORDERED: ENOXAPARIN 40 MG/0.4 ML SQ SCH (09:00)
[2017-12-23 11:22] VITALS: O2SAT 100
--- NOTE | 2017-12-23 12:31 | CON ---
Date of Consultation: 12/23/[address] Sears's service for chest pain on 12/22/2017. I saw the patient on 12/23/2017. History Of Present Illness: Mrs. Canseco is 57-year-old woman who has a history of coronary artery by pass surgery in March of 2016 at [facility]. She sees Dr. Turpin for Cardiology in [facility]. She underwent a triple-vessel bypass. Has had a history of PCI prior to this. Has hypertension , depression, dyslipidemia, COPD, and is under a lot of stress. She came in with left back scapular pain. No chest pain. Symptoms have been going on for 3 to 4 days. No nausea, vomiting, diaphoresis , PND, orthopnea, pedal edema, palpitations, or syncope. Already ruled out for an IL. Past Medical History: As stated above. Allergies: PENICILLIN. Review of Systems: Negative. Social History: Negative. Family History: Noncontributory. Medications: At home include aspirin, Plavix, Lipitor, Coreg, lisinopril, Xopenex, Seroquel, Prozac. Physical Examination: Vital Signs: Stable. Her initial pressure was 163/106. After she got treated, they went down to 85 /95, has 120 this morning systolic. No complaint. On examination, as per emergency room records, Dr Gregg Sears's records were within normal limit. 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 She would love to have the testing done here and wanted to go home and I concurred wi th her. Impression And Plan: 1.Atypical chest pain, most likely musculoskeletal. 2.History of coronary artery disease that is stable. 3.Status post coronary bypass surgery and percutaneous coronary intervention that is stable. 4.Hypertension. 5.Depression. 6.Dyslipidemia. 7.Chronic obstructive pulmonary disease. I will discuss the case further with Dr. Sears. She can go home whenever it is okay with him. CAITLIN/YON Voice ID: [id number] Report ID: [id number]
--- NOTE | 2017-12-23 13:47 | P.SSS ---
Patient History Date of Service: 12/23/17 Reason for admission: Chest pain shortness of breath History of Present Illness: Patient is a 57-year-old female came into the hospital with chest discomfort. Patient also had shortness of breath. Patient's history of COPD and she has been using inhalers at home. She does continue to smoke but only is smoking 3 cigarettes a day now. 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 She also has been having chest pain. She has a history of coronary artery disease status post coronary artery bypass grafting x3 vessel. She did have a cardiac workup about a year ago which she states did not reveal any significant abnormalities. She does not have congestive heart failure. She does have bipolar disorder for which she takes Seroquel. Her chest pain was in the sternal region and radiated down to her left arm. She has some paresthesias in the left arm. So had a headache. The headache is more throbbing. She has been given pain medication which has not alleviated her chest pain. She will be admitted to the hospital for observation. Allergies Penicillins Allergy (Verified 12/22/17 20:32) Itching/Hives/Rash Home Medications: Aspirin [Aspirin EC 325 MG] 325 mg PO DAILY 12/22/17 Atorvastatin Calcium [Lipitor] 80 mg PO DAILY 12/22/17 Carvedilol [Coreg*] 6.25 mg PO BID 12/22/17 Clopidogrel Bisulfate [Plavix*] 75 mg PO DAILY 12/22/17 Fluoxetine HCl [Prozac*] 20 mg PO TID 12/22/17 Levalbuterol Tartrate [Xopenex Hfa] 1 puff IN QID 12/22/17 Lisinopril [Prinivil*] 2.5 mg PO DAILY 12/22/17 Quetiapine [Seroquel*] 300 mg PO BEDTIME 12/22/17 - Past Medical/Surgical History Diabetic: No -: [place] 2014 -: HTN -: COPD -: triple bypass 2015 -: fusion in the neck - Family History Mother -: Heart disease Father -: Cancer Notes: colon Brother -: Heart disease, Diabetes, Liver disease - Social History Smoking Status: Current every day smoker Alcohol use: No CD- Drugs: No Caffeine use: Yes Place of Residence: Home Review of Systems 10-point ROS is otherwise unremarkable Physical Examination - Vital Signs Temperature: 97.5 F Blood Pressure: 106/75 Pulse: 68 Respirations: 18 Pulse Ox (%): 100 - Physical Exam General: Alert, In no apparent distress HEENT: Atraumatic, PERRLA, Mucous membr. moist/pink, EOMI, Sclerae nonicteric Neck: Supple, 2+ carotid pulse no bruit, No LAD, Without JVD or thyroid abnormality Respiratory: Clear to auscultation bilaterally, Normal air movement Cardiovascular: Regular rate/rhythm, Normal S1 S2 Gastrointestinal: Normal bowel sounds, No tenderness Musculoskeletal: No tenderness Integumentary: No rashes Neurological: Normal gait, Normal speech, Normal strength at 5/5 x4 extr, Normal tone, Normal affect Lymphatics: No axilla or inguinal lymphadenopathy - Studies Laboratory Data (last 24 hrs) 12/22/17 18:50: PT 13.0 H, INR 1.10, APTT 38.2 H 12/22/17 18:50: WBC 7.1, Hgb 13.5, Hct 40.3, Plt Count 183 12/22/17 18:50: Sodium 144, Potassium 3.7, BUN 13, Creatinine 0.90, Glucose 107 H, Magnesium 2.3, Total Bilirubin 0.4, AST 23, ALT 25, Alkaline Phosphatase 113 Treatment Summary: Discharge diagnosis 1. COPD exacerbation 2. Chest pain, atypical Hospital Course: Overall during the hospital stay patient remained stable Patient was initially admitted to the hospital for chest pain and discomfort. Cardiology was consulted who recommended patient get a stress test and echocardiogram done here in the hospital. Patient however choose to give them for cardial patient had zoroastrian and laser treatment here in the hospital. After which patient was discharged home under stable condition. Patient also had COPD exacerbation while here in the hospital was kept on duo nebs, steroids , oxygen here in the hospital. Was successfully weaned off of oxygen and was restarted back on her inhalers. Patient marked improvement in her symptoms and thus was discharged home under stable condition. - Disposition Disposition: ROUTINE DISCHARGE
[2017-12-23] MEDS ORDERED: QUETIAPINE 100MG TAB PO SCH (21:00)
== END 2017-12-23 11:23 | disposition home or self-care (01) ==
LOC: ER 17:48 → ERHOLD 19:58 → 4TH 20:47
PROVIDERS: ADMIT Hospitalist; ATTEND Hospitalist
DX: J44.1 Chronic obstructive pulmonary disease with (acute) exacerbation (principal); R07.89 Other chest pain; I25.10 Atherosclerotic heart disease of native coronary artery without angina pectoris; F31.9 Bipolar disorder, unspecified; I10 Essential (primary) hypertension; E78.5 Hyperlipidemia, unspecified; F17.210 Nicotine dependence, cigarettes, uncomplicated; I25.2 Old myocardial infarction; Z95.1 Presence of aortocoronary bypass graft; Z88.0 Allergy status to penicillin
CPT/HCPCS: 36415; 71045; 80048; 80061; 80076; 81003; 81015; 82550; 82553; 83735; 83880; 84484; 85025; 85610; 85730; 87077; 87086; 87088; 87186; 93005; 94640; 96374; 96375; 99285; G0378; J1650; J1720; J2405; J2785; J2930; J3010; J7030

== ENCOUNTER 2024-03-22 13:00 | Emergency (ER) | payer OTHER ==
--- NOTE | 2024-03-22 13:55 | RAD REPORT ---
Procedure: Chest Single View HISTORY: Cough COMPARISON: 2018 FINDINGS: The lungs appear clear of acute infiltrate.. Lungs are moderately hyperaerated. Post surgical changes involve No significant pleural effusion noted. The heart is normal size. IMPRESSION: Hyperaerated lungs consistent with COPD. No acute normality is displayed
[2024-03-22 14:25] LABS: Absolute Basophils 0.1 K/uL (0-0.5); Absolute Eosinophils 0.3 K/uL (0-0.5); Absolute Lymphocytes (CBC) 1.3 K/uL (0.7-4.9); Absolute Monocytes 0.4 K/uL (0.1-1.3); Absolute Neutrophil 4.8 K/uL (1.8-8.0); Basophils % 1.1 % (0-1.3); Eosinophils % 4.5 % (0-4.4); Hematocrit 49.8 % (36.0-45.0); Hemoglobin 16.2 g/dL (12.0-15.0); Lymphocytes % 18.9 % (15.3-44.8); MCHC 32.6 g/dL (32.0-36.0); MPV 8.7 fL (7.6-11.3); Monocytes % 5.6 % (3.3-12.3); Neutrophils % 69.9 % (41.7-73.7); Nucleated Red Blood Cells % 0.3 % (0-0); Platelets 170 thou/uL (152-406); RBC Red Blood Cell Count 5.79 M/uL (3.86-4.86); Red Cell Distribution Width 15.6 % (12.1-15.2)
[2024-03-22 14:33] LABS: Protime INR 1.35
[2024-03-22 14:45] LABS: Anion Gap 7.3 mEq/L (5.0-15.0); Troponin High Sensitivity 8.2 pg/mL (<58.9)
[2024-03-22 14:46] LABS: Potassium 4.3 mEq/L (3.5-5.1)
[2024-03-22] MEDS ORDERED: METHYLPREDNISOLONE 125 MG INJ ONE (15:44)
[2024-03-22] MEDS ORDERED: ALBUTEROL 2.5 MG/3 ML NEB SOL ONE (15:44)
[2024-03-22] MEDS ORDERED: IPRATROPIUM BROM 0.5MG/2.5ML ONE (15:44)
--- NOTE | 2024-03-22 16:08 | ER ---
Nurse's Notes [facility] Name: Olena Orourke Age: 63 yrs Sex: Female : 1960 Arrival Date: 03/22/2024 Time: 13:00 Bed 20 Private MD: Diagnosis: COPD/ Chronic obstructive pulmonary disease with (acute) exacerbation;Tobacco use Presentation: 03/22 13:12 Chief complaint: Patient states: SHORTNESS OF BREATH X1 MONTH. PT STATES THAT OVER THE cm10 LAST FEW DAYS IT HAS GOTTEN WORSE. PT REPORTS GENERALIZED CHEST PAIN THAT IS WORSE WHEN TAKING A DEEP BREATH. Coronavirus screen: Client denies travel out of the [place] in the last 14 days. Ebola Screen: Patient denies travel to an Ebola-affected area in the 21 days before illness onset. No symptoms or risks identified at this time. Initial Sepsis Screen: Does the patient meet any 2 criteria? HR > 90 bpm. Does the patient have a suspected source of infection? No. Patient's initial sepsis screen is negative. Risk Assessment: Do you want to hurt yourself or someone else? Patient reports no desire to harm self or others. Onset of symptoms was March 22, 2024. 13:12 Method Of Arrival: Ambulatory cm10 13:12 Acuity: ERIC 2 cm10 Historical: - Allergies: 13:13 PENICILLINS; cm10 - PMHx: 13:13 COPD; Hypertension; Myocardial infarction; Congestive heart failure; Diabetes mellitus; cm10 Atrial fibrillation; Hypercholesterolemia; - Immunization history:: Adult Immunizations up to date. - Infectious Disease History:: Denies. - Social history:: Smoking status: Patient reports the use of cigarette tobacco products, denies chronic smoking, but will smoke occasionally. Screenin:27 [facility] ED Fall Risk Assessment (Adult) History of falling in the last 3 months, db including since admission No falls in past 3 months (0 pts) Confusion or Disorientation No (0 pts) Intoxicated or Sedated No (0 pts) Impaired Gait No (0 pts) Mobility Assist Device Used No (0 pt) Altered Elimination No (0 pt) Score/Fall Risk Level 0 - 2 = Low Risk Oriented to surroundings, Maintained a safe environment. Abuse screen: Denies threats or abuse. Denies injuries from another. Nutritional screening: No deficits noted. Tuberculosis screening: No symptoms or risk factors identified. Assessment: 14:05 General: Appears in no apparent distress. uncomfortable, Behavior is calm, cooperative. db Pain: Denies pain. Neuro: Level of Consciousness is awake, alert, obeys commands, Oriented to person, place, time, situation. Cardiovascular: Rhythm is regular. Respiratory: Reports cough that is Airway is patent Respiratory effort is even, unlabored, Respiratory pattern is regular, symmetrical, Breath sounds are coarse. 16:27 Reassessment: Patient appears in no apparent distress at this time. Patient and/or db family updated on plan of care and expected duration. Pain level reassessed. Patient is alert, oriented x 3, equal unlabored respirations, skin warm/dry/pink. Reassessment: Patient states feeling better. Patient states symptoms have improved. General: Appears in no apparent distress. comfortable, Behavior is calm, cooperative. Vital Signs: 13:12 BP 129 / 88; Pulse 112; Resp 19; Temp 96.7(TE); Pulse Ox 93% on R/A; Weight 63.5 kg; cm10 Height 5 ft. 2 in. ; Pain 9/10; 14:05 BP 123 / 84; Pulse 109; Resp 16; Pulse Ox 95% on R/A; db 15:00 BP 138 / 95; Pulse 98; Resp 16; Pulse Ox 94% ; db 16:00 BP 130 / 90; Pulse 96; Resp 18; Pulse Ox 94% on R/A; db 13:12 Body Mass Index 25.60 (63.50 kg, 157.48 cm) cm10 13:12 Pain Scale: Adult cm10 Vitals: 16:00 Cardiac Rhythm Assessment Regular. db ED Course: 13:04 Patient arrived in ED. al6 13:13 Triage completed. cm10 13:14 Arm band placed on right wrist. Patient placed in waiting room. EKG completed in cm10 triage. Results shown to MD. 13:25 EKG done, by ED staff, reviewed by Familia Lehman MD. cm10 13:40 Genie Herrera, RN is Primary Nurse. db 13:46 XRAY Chest (1 view) In Process Unspecified. EDMS 14:16 Initial lab(s) drawn, by me, sent to lab. Missed attempt(s): 22 gauge in left upper db arm. Bleeding controlled, band aid applied, catheter tip intact. 14:20 Inserted saline lock: 22 gauge in right antecubital area, using aseptic technique. ll1 Flushed with 10 mL NS. 14:31 Familia Lehman MD is Attending Physician. bo1 16:27 Patient has correct armband on for positive identification. Bed in low position. Call db light in reach. Side rails up X 1. Provided Education on: DISCHARGE AND FOLLOWUP. Client placed on continuous cardiac and pulse oximetry monitoring. NIBP monitoring applied. ekg monitor tech on. Pulse ox on. NIBP on. Warm blanket given. Pillow given. 16:27 No provider procedures requiring assistance completed. IV discontinued, intact, db bleeding controlled, No redness/swelling at site. Administered Medications: 15:43 Drug: MethylPrednisoLONE IVP 125 mg IVP once Route: IVP; Site: right antecubital; db 16:29 Follow up: Response: No adverse reaction db 15:43 Drug: DuoNeb Nebulize (3:1) (2.5 mg - 0.5 mg) 3 ml Nebulizer once; give 1 duo-neb db Route: Nebulizer; 16:29 Follow up: Response: No adverse reaction db Medication: 16:27 VIS not applicable for this client. db Outcome: 16:07 Discharge ordered by . bo1 16:27 Discharged to home via wheelchair, with family, db 16:27 Condition: stable 16:27 Discharge instructions given to patient, family, Instructed on discharge instructions, follow up and referral plans. Prescriptions given X 2, 16:29 Patient left the ED. db Signatures: Dispatcher [employer] EDMS Anderson Roth RN RN ll1 Genie Herrera RN RN db Martinez, Clarissa, RN RN cm10 Familia Lehman MD MD boAngela Farmer al6
--- NOTE | 2024-03-22 16:08 | EDPHYS ---
Physician Documentation [facility] Name: Olena Orourke Age: 63 yrs Sex: Female : 1960 Arrival Date: 03/22/2024 Time: 13:00 Bed 20 Private MD: ED Physician Familia Lehman HPI: 03/22 15:55 This 63 yrs old Female presents to ER via Ambulatory with complaints of Shortness Of bo1 Breath. 15:55 The patient has shortness of breath at rest, with light activity, and the patient has a bo1 history of COPD, Oxygen concentrator broke/while moving 1 month ago. Onset: The symptoms/episode began/occurred gradually, yesterday. Duration: The symptoms are intermittent. Associated signs and symptoms: Pertinent positives: chest pain, non-productive cough, Sharp CP with coughing lately (Hx of sternotomy), Pertinent negatives: fever. The patient has experienced similar episodes in the past, and the symptoms today are exactly the same. No recent fever and pt still smokes \T\ 4-5 cigarettes per day. Historical: - Allergies: 13:13 PENICILLINS; cm10 - PMHx: 13:13 COPD; Hypertension; Myocardial infarction; Congestive heart failure; Diabetes mellitus; cm10 Atrial fibrillation; Hypercholesterolemia; - Immunization history:: Adult Immunizations up to date. - Infectious Disease History:: Denies. - Social history:: Smoking status: Patient reports the use of cigarette tobacco products, denies chronic smoking, but will smoke occasionally. ROS: 15:57 Constitutional: Negative for fever, chills, and weight loss bo1 15:57 Neck: Negative for pain with movement, pain at rest, 15:57 Cardiovascular: Positive for chest pain, with cough, 15:57 Respiratory: Positive for shortness of breath, 15:57 Abdomen/GI: Negative for abdominal pain, 15:57 MS/extremity: Negative for pain, swelling, 15:57 Skin: Negative for rash, 15:57 All other systems are negative, Exam: 16:00 Constitutional: This is a well developed, well nourished patient who is awake, alert, bo1 and in no acute distress. 16:00 Constitutional: The patient appears alert, awake, comfortable, non-toxic, 16:00 Eyes: Sclera: no acute changes, 16:00 Neck: External neck: is normal, no acute changes, 16:00 Chest/axilla: Inspection: normal, 16:00 Cardiovascular: Rate: tachycardic, Rhythm: regular, Pulses: no pulse deficits are appreciated, 16:00 ECG was reviewed by the Attending Physician. 16:00 Respiratory: the patient does not display signs of respiratory distress, Respirations: normal, Breath sounds: decreased breath sounds, are located in both bases, 16:00 Abdomen/GI: Inspection: abdomen appears normal, Palpation: soft, nontender, 16:00 Musculoskeletal/extremity: Calves: are non-tender, 16:00 Skin: no rash present. 16:00 Neuro: Exam negative for acute changes, Orientation: appropriate for stated age, Mentation: appropriate for stated age, Memory: appropriate for stated age, Vital Signs: 13:12 BP 129 / 88; Pulse 112; Resp 19; Temp 96.7(TE); Pulse Ox 93% on R/A; Weight 63.5 kg; cm10 Height 5 ft. 2 in. ; Pain 9/10; 14:05 BP 123 / 84; Pulse 109; Resp 16; Pulse Ox 95% on R/A; db 15:00 BP 138 / 95; Pulse 98; Resp 16; Pulse Ox 94% ; db 16:00 BP 130 / 90; Pulse 96; Resp 18; Pulse Ox 94% on R/A; db 13:12 Body Mass Index 25.60 (63.50 kg, 157.48 cm) cm10 13:12 Pain Scale: Adult cm10 MDM: 14:31 Medical Screening Exam initiated bo1 16:03 Differential diagnosis: Chronic Obstructive Pulmonary Disease pneumonia, reactive bo1 airway disease, Chest pain from coughing. Data reviewed: vital signs, lab test result(s), EKG, radiologic studies, plain films. ED course: Pt needs her concentrator will contact [employer] tomorrow to obtain replacement. She feels comfortable to go home and family agrees. 16:05 Response to treatment: the patient's symptoms have mildly improved after treatment. bo1 03/22 13:15 Order name: Basic Metabolic Panel; Complete Time: 15:06 cm10 15 13:15 Order name: CBC with Diff; Complete Time: 15:06 cm10 15 13:15 Order name: NT PRO-BNP; Complete Time: 15:06 cm10 03/22 13:15 Order name: PT-INR; Complete Time: 15:06 cm10 03/22 13:15 Order name: Troponin HS; Complete Time: 15:06 cm10 15 13:15 Order name: XRAY Chest (1 view); Complete Time: 15:06 cm10 15 13:15 Order name: Cardiac monitoring; Complete Time: 14:49 cm10 15 13:15 Order name: EKG - Nurse/Tech; Complete Time: 13:25 cm10 15 13:15 Order name: IV Saline Lock; Complete Time: 14:49 cm10 15 13:15 Order name: Labs collected and sent; Complete Time: 14:49 cm10 15 13:15 Order name: O2 Per Protocol; Complete Time: 14:49 cm10 15 13:15 Order name: O2 Sat Monitoring; Complete Time: 14:49 cm10 EC:00 Rate is 121 beats/min. Rhythm is regular. QRS [place] is Normal. LA interval is normal. bo1 QRS interval is normal. QT interval is normal. No Q waves. T waves are Normal. No ST changes noted. Clinical impression: Sinus tachycardia and with left axis and RBBB. Interpreted by me. Reviewed by me. Administered Medications: 15:43 Drug: MethylPrednisoLONE IVP 125 mg IVP once Route: IVP; Site: right antecubital; db 16:29 Follow up: Response: No adverse reaction db 15:43 Drug: DuoNeb Nebulize (3:1) (2.5 mg - 0.5 mg) 3 ml Nebulizer once; give 1 duo-neb db Route: Nebulizer; 16:29 Follow up: Response: No adverse reaction db Disposition Summary: 03/22/24 16:07 Discharge Ordered Notes: Location: Home bo1 Problem: an acute exacerbation bo1 Symptoms: have improved bo1 Condition: Stable bo1 Diagnosis - COPD/ Chronic obstructive pulmonary disease with (acute) exacerbation bo1 - Tobacco use bo1 Followup: bo1 - With: Private Physician - When: Upon discharge from the Emergency Department - Reason: Recheck today's complaints, Continuance of care Discharge Instructions: - Discharge Summary Sheet bo1 - Chronic Obstructive Pulmonary Disease Exacerbation bo1 - Cough, Adult, Eptd-jc-Awrr bo1 Forms: - Medication Reconciliation Form bo1 - Antibiotic Education bo1 - Prescription Opioid Use bo1 - Patient Portal Instructions bo1 - Leadership Thank You Letter bo1 Prescriptions: - Tessalon Perles 100 mg Oral capsule - take 1 capsule ORAL route every 8 hours As needed sub tessalon 200mg PO every bo1 6-8 hrs prn cough; 40 capsule; Refills: 0, Product Selection Permitted - Prednisone 20 mg Oral Tablet - take 2 tablets ORAL route once daily for 5 days; 10 tablet; Refills: 0, Product bo1 Selection Permitted Signatures: Dispatcher [employer] EDGenie Johnson RN RN db Meryl Polanco RN RN cm10 OeiFamilia MD MD bo1 Corrections: (The following items were deleted from the chart) 13:15 13:15 BASIC METABOLIC PANEL+C.LAB.BRZ ordered. EDMS EDMS 13:15 13:15 CBC+H.LAB.BRZ ordered. EDMS EDMS 13:15 13:15 PROBNP+C.LAB.BRZ ordered. EDMS EDMS 13:15 13:15 PROTIME (+INR)+COAG.LAB.BRZ ordered. EDMS EDMS 13:15 13:15 Troponin High Sensitivity+C.LAB.BRZ ordered. EDMS EDMS 13:15 13:15 Chest Single View+RAD.RAD.BRZ ordered. EDMS EDMS
[2024-03-22 16:44] VITALS: TEMP 96.7
[2024-03-22 16:55] VITALS: O2SAT 94
[2024-03-22 16:57] VITALS: BP 130/90
--- NOTE | 2024-03-24 12:03 | EKG ---
Test Date: 2024-03-22 Test Time: 13:19:22 Wood Grinder Operator: CHINEDU MEASUREMENT RESULTS: Intervals: Rate: 121 HI: 124 QRSD: 136 QT: 360 QTc: 511 [place]: P: 73 HI: 124 QRS: -36 T: 43 INTERPRETIVE STATEMENTS: Sinus tachycardia Left axis deviation Right bundle branch block Abnormal ECG Compared to ECG 12/22/2017 18:03:54 Left-axis deviation now present Electronically Signed On 03-24-24 12:01:58 EXECUTIVE DIRECTOR by Jabari Horton
== END 2024-03-22 16:29 | disposition home or self-care (01) ==
LOC: ER 13:00
DX: J44.1 Chronic obstructive pulmonary disease with (acute) exacerbation (principal); Z72.0 Tobacco use; I10 Essential (primary) hypertension; I48.91 Unspecified atrial fibrillation; I50.9 Heart failure, unspecified
CPT/HCPCS: 93005; 85025; 80048; 36415; 85610; 84484; 83880; 71045; 96374; 99285; J7613; J7644; J2919

== ENCOUNTER 2024-04-11 17:50 | Emergency (ER) | payer OTHER ==
--- NOTE | 2024-04-11 18:27 | RAD REPORT ---
EXAMINATION: ONE VIEW CHEST XR CLINICAL INDICATION: CHEST PAIN TECHNIQUE: Frontal chest projection is submitted. Examination is limited by patient positioning and t echnique. COMPARISON: 03/22/2024 FINDINGS: The lungs are diffusely emphysematous but grossly clear. The heart is normal in size. No displaced fr actures identified. Sternotomy wires. IMPRESSION: COPD without an acute process suspected.
--- NOTE | 2024-04-11 18:27 | RAD REPORT ---
EXAMINATION: LEFT RIB SERIES INDICATION: PAIN COMPARISON: None TECHNIQUE: Frontal and multiple oblique views of the LEFT ribs. FINDINGS: No displaced rib fracture is identified. No suspicious focal osseous lesion.. IMPRESSION: Negative rib series..
[2024-04-11] MEDS ORDERED: FENTANYL CITR 100 MCG/2 ML ONE (18:28)
[2024-04-11 18:46] LABS: Absolute Basophils 0.3 K/uL (0-0.5); Absolute Eosinophils 0.2 K/uL (0-0.5); Absolute Lymphocytes (CBC) 1.3 K/uL (0.7-4.9); Absolute Monocytes 0.5 K/uL (0.1-1.3); Absolute Neutrophil 7.5 K/uL (1.8-8.0); Basophils % 2.9 % (0-1.3); Eosinophils % 1.6 % (0-4.4); Hematocrit 49.2 % (36.0-45.0); Hemoglobin 16.4 g/dL (12.0-15.0); Lymphocytes % 13.7 % (15.3-44.8); MCH 28.6 pg (27.0-35.0); MCHC 33.3 g/dL (32.0-36.0); MCV 85.8 fL (80-100); MPV 7.9 fL (7.6-11.3); Monocytes % 5.5 % (3.3-12.3); Neutrophils % 76.3 % (41.7-73.7); Nucleated RBC Absolute Count 0.1 (0-0); Nucleated Red Blood Cells % 0.8 % (0-0); Platelets 213 thou/uL (152-406); RBC Red Blood Cell Count 5.73 M/uL (3.86-4.86); Red Cell Distribution Width 15.6 % (12.1-15.2)
--- NOTE | 2024-04-11 18:46 | RAD REPORT ---
EXAM: CT brain without contrast HISTORY: Headache;Weakness COMPARISON: None TECHNIQUE: Multiple contiguous axial images were obtained and a CT of the brain without contrast. Sag ittal and coronal reformats were performed. One or more of the following dose reduction techniques were used: Automated exposure control, adjust ment of the mA and/or kV according to patient size, and/or iterative reconstruction. FINDINGS: No evidence of hydrocephalus, intracranial hemorrhage, or extra-axial fluid collection. Mild brain atrophy with mild periventricular and deep white matter chronic microvascular ischemic ch anges present. No evidence of midline shift or areas of brain edema. The calvarium is intact. The visualized paranasal sinuses and mastoid air cells are essentially clear . Left vertebral atherosclerosis. IMPRESSION: No evidence of acute intracranial abnormality.
[2024-04-11 18:50] LABS: PT Prothrombin Time 11.6 SECONDS (9.4-12.5); Protime INR 1.04
[2024-04-11 19:12] LABS: Anion Gap 12.7 mEq/L (5.0-15.0); Troponin High Sensitivity 7.4 pg/mL (<58.9)
[2024-04-11 19:14] LABS: Magnesium 1.8 mg/dL (1.6-2.4); Potassium 3.7 mEq/L (3.5-5.1)
[2024-04-11] MEDS ORDERED: INSULIN REGULAR (HUMAN) 100 UNIT/ML ONE (19:45)
[2024-04-11 19:47] LABS: Specific Gravity > 1.030 (1.005-1.030); Sqamous Epithelial <5 /HPF (None Seen); Urine Bacteria <20 /HPF (<20); Urine Bilirubin NEGATIVE (Negative); Urine Blood Negative (Negative); Urine Clarity Clear (Clear); Urine Color Light-Yellow (Yellow); Urine Crystals Unidentified Few /HPF (None Seen); Urine Culture Reflex Order NOT NEEDED; Urine Glucose 4+ (Over) (Negative); Urine Ketones NEGATIVE (Negative); Urine Microscopic Reflex YN ORDER UMIC; Urine Nitrite NEGATIVE (Negative); Urine Protein NEGATIVE (Negative); Urine RBC <5 /HPF (None Seen); Urine Urobilinogen Normal (Normal); Urine WBC <5 /HPF (<5); Urine Yeast (Budding) Trace /HPF (None Seen)
--- NOTE | 2024-04-11 20:01 | EDPHYS ---
Physician Documentation [facility] Name: Olena Orourke Age: 63 yrs Sex: Female : 1960 Arrival Date: 04/11/2024 Time: 17:50 Bed 16 Private MD: ED Physician Josue Stovall HPI: 04/11 18:00 This 63 yrs old Female presents to ER via Wheelchair with complaints of Breathing jh7 Difficulty, Fall Injury. 18:00 63-year-old female with a past medical history of diabetes, CHF, A-fib on Eliquis, and jh7 COPD presents to the ER complaining of fall, chest pain, and shortness of breath. The patient reports that just SAND TEMPERER her legs gave out and that she fell, landing on her left side. She reports that her blood glucose was over 300 at home. After the fall she complained of left-sided chest pain radiating to the front of her chest and difficulty breathing. She complains of a headache and reports she is unsure if she hit her head, but denies LOC.. Historical: - Allergies: 18:00 PENICILLINS; iw - PMHx: 18:00 Hypercholesterolemia; Hypertension; diabetes mellitus; Congestive heart failure; Atrial iw fibrillation; COPD; Myocardial infarction; - PSHx: 18:00 Coronary artery bypass graft; iw - Immunization history:: Adult Immunizations up to date. - Infectious Disease History:: Denies. - Social history:: Smoking status: Patient/guardian denies using tobacco, but has a distant history of tobacco abuse. ROS: 18:00 Constitutional: Per HPI jh7 Exam: 18:00 Head/Face: Normocephalic, atraumatic. Eyes: Pupils equal round and reactive to light, jh7 extra-ocular motions intact. Lids and lashes normal. Conjunctiva and sclera are non-icteric and not injected. Cornea within normal limits. Periorbital areas with no swelling, redness, or edema. ENT: Nares patent. No nasal discharge, no septal abnormalities noted. Tympanic membranes are normal and external auditory canals are clear. Oropharynx with no redness, swelling, or masses, exudates, or evidence of obstruction, uvula midline. Mucous membranes moist. Neck: Trachea midline, no thyromegaly or masses palpated, and no cervical lymphadenopathy. Supple, full range of motion without nuchal rigidity, or vertebral point tenderness. No Meningismus. Respiratory: Lungs have equal breath sounds bilaterally, clear to auscultation and percussion. No rales, rhonchi or wheezes noted. No increased work of breathing, no retractions or nasal flaring. 18:00 Abdomen/GI: Soft, non-tender, with normal bowel sounds. No distension or tympany. No guarding or rebound. No evidence of tenderness throughout. Back: No spinal tenderness. No costovertebral tenderness. Full range of motion. Skin: Warm, dry with normal turgor. Normal color with no rashes, no lesions, and no evidence of cellulitis. MS/ Extremity: Pulses equal, no cyanosis. Neurovascular intact. Full, normal range of motion. Neuro: Awake and alert, GCS 15, oriented to person, place, time, and situation. Cranial nerves II-XII grossly intact. Motor strength 5/5 in all extremities. Sensory grossly intact. Cerebellar exam normal. Normal gait. 18:00 Constitutional: The patient appears alert, awake, in obvious pain, 18:00 Chest/axilla: Inspection: normal, Palpation: tenderness, that is moderate, of the left lateral anterior chest, that totally reproduces the patient's complaints, 18:00 Cardiovascular: Rate: tachycardic, Rhythm: regular, Pulses: Pulses are 3+ in right radial artery and left radial artery. Heart sounds: normal, Vital Signs: 18:02 BP 130 / 84; Pulse 102; Resp 18; Temp 98(O); Pulse Ox 94% on R/A; rs5 19:10 BP 109 / 50; Pulse 103; Resp 20; Pulse Ox 91% on R/A; kj2 20:27 BP 91 / 64; Pulse 68; Resp 18; Temp 98; Pulse Ox 97% ; kj2 MDM: 17:53 Medical Screening Exam initiated jh7 20:00 Differential diagnosis: Bronchitis CHF exacerbation, Chronic Obstructive Pulmonary jh7 Disease pneumonia, pulmonary edema, Rib fracture, chest contusion, rib contusion. Data interpreted: Pulse oximetry: is 92 %. Interpretation: acceptable. Data reviewed: vital signs, nurses notes, lab test result(s), EKG, radiologic studies, plain films. I considered the following discharge prescriptions or medication management in the emergency department Medications were administered in the Emergency Department. See MAR. Independent interpretation of the following test(s) in the Emergency Department X-Ray: My interpretation is No rib fractures. Care significantly affected by the following chronic conditions: Diabetes, Hypertension, Congestive Heart Failure, Chronic Obstructive Pulmonary Disease. Counseling: I had a detailed discussion with the patient and/or guardian regarding the historical points, exam findings, and any diagnostic results supporting the discharge/admit diagnosis, to return to the emergency department if symptoms worsen or persist or if there are any questions or concerns that arise at home. Response to treatment: the patient's symptoms have markedly improved after treatment. 04/11 18:01 Order name: Basic Metabolic Panel; Complete Time: 19:32 [facility] 04/11 18:01 Order name: CBC with Diff; Complete Time: 18:56 [facility] 04/11 18:01 Order name: Magnesium; Complete Time: 19:32 [facility] 04/11 18:01 Order name: NT PRO-BNP; Complete Time: 19:32 [facility] 04/11 18:01 Order name: PT-INR; Complete Time: 18:56 [facility] 04/11 18:01 Order name: Troponin HS; Complete Time: 19:32 [facility] 04/11 18:57 Order name: Urinalysis w/ reflexes; Complete Time: 19:55 [facility] 04/11 18:01 Order name: XRAY Chest (1 view); Complete Time: 18:56 [facility] 04/11 18:01 Order name: CT Head Brain wo Cont; Complete Time: 18:56 [facility] 04/11 18:01 Order name: XRAY Ribs LEFT; Complete Time: 18:56 [facility] 04/11 18:01 Order name: Cardiac monitoring; Complete Time: 18:59 [facility] 04/11 18:01 Order name: EKG - Nurse/Tech; Complete Time: 18:59 [facility] 04/11 18:01 Order name: IV Saline Lock; Complete Time: 18:59 [facility] 04/11 18:01 Order name: Labs collected and sent; Complete Time: 18:59 [facility] 04/11 18:01 Order name: O2 Per Protocol; Complete Time: 18:59 [facility] 04/11 18:01 Order name: O2 Sat Monitoring; Complete Time: 18:59 7 EC:00 Rate is 110 beats/min. Rhythm is regular. QRS [place] is Normal. MA interval is normal at [facility] 128 msec. QRS interval is normal at 142 msec. QT interval is normal at 366 msec. No Q waves. T waves are Normal. No ST changes noted. Clinical impression: Sinus tachycardia with right bundle branch block. Administered Medications: 18:20 Drug: fentaNYL (PF) IVP 50 mcg IVP once Route: IVP; Site: right hand; rs5 19:52 Follow up: Response: No adverse reaction; Pain is unchanged, physician notified kj2 19:50 Drug: Insulin Regular Human IVP 5 units IVP once {Co-Signature: cp4 (aleksandar Banks).} Route: IVP; Site: right hand; 20:26 Follow up: Response: No adverse reaction kj2 20:23 Drug: HYDROcodone-acetaminophen PO 5 mg-325 mg 1 tabs PO once Route: PO; kj2 20:23 Follow up: Response: Medication administered at discharge. kj2 Disposition Summary: 04/11/24 20:00 Discharge Ordered Notes: Location: Home [facility] Problem: new [facility] Symptoms: have improved [facility] Condition: Stable [facility] Diagnosis - Rib contusion [facility] - Chest pain on breathing [facility] - Fall on same level, unspecified [facility] - Hyperglycemia, unspecified [facility] Followup: [facility] - With: Private Physician - When: 2 - 3 days - Reason: Recheck today's complaints Discharge Instructions: - Discharge Summary Sheet [facility] - Rib Contusion [facility] - Chest Wall Pain [facility] Forms: - Medication Reconciliation Form [facility] - Prescription Opioid Use [facility] - Patient Portal Instructions [facility] - Leadership Thank You Letter [facility] Prescriptions: - Tramadol 50 mg Oral Tablet - take 1 tablet ORAL route every 8 hours as needed; 12 tablet; Refills: 0, [facility] Product Selection Permitted Addendum: 04/13/2024 07:39 I was immediately available for consultation during this patient's visit. I did not e c2 personally see the patient or discuss the patient with the NELIDA. . Signatures: Dispatcher [employer] Elizabeth Harris RN RN iw Hadash, Jennifer, FNP FNP [facility] Amor Curtis RN RN rs5 Josue Stovall MD MD ec2 Soledad Figueroa RN RN kj2 Kandice Banks cp4 Corrections: (The following items were deleted from the chart) 04/11 18:02 18:01 BASIC METABOLIC PANEL+C.LAB.BRZ ordered. EDMS EDMS 18:02 18:01 CBC+H.LAB.BRZ ordered. EDMS EDMS 18:02 18:01 MAGNESIUM+C.LAB.BRZ ordered. EDMS EDMS 18:02 18:01 PROBNP+C.LAB.BRZ ordered. EDMS EDMS 18:02 18:01 PROTIME (+INR)+COAG.LAB.BRZ ordered. EDMS EDMS 18:02 18:01 Troponin High Sensitivity+C.LAB.BRZ ordered. EDMS EDMS 18:02 18:02 Chest Single View+RAD.RAD.BRZ ordered. EDMS EDMS 18:02 18:02 Ribs Left+RAD.RAD.BRZ ordered. EDMS EDMS
--- NOTE | 2024-04-11 20:01 | ER ---
Nurse's Notes [facility] Name: Olena Orourke Age: 63 yrs Sex: Female : 1960 Arrival Date: 04/11/2024 Time: 17:50 Bed 16 Private MD: Diagnosis: Rib contusion;Chest pain on breathing;Fall on same level, unspecified;Hyperglycemia, unspecified Presentation: 04/11 17:59 Chief complaint: Patient states: her legs agave out and she fell on her left side, now iw has chest pain and SOB, her vision has been blurry and her Blood sugar was high today 336. Coronavirus screen: Client presents with at least one sign or symptom that may indicate coronavirus-19. Ebola Screen: No symptoms or risks identified at this time. Initial Sepsis Screen: Does the patient meet any 2 criteria? HR > 90 bpm. Does the patient have a suspected source of infection?. Risk Assessment: Do you want to hurt yourself or someone else? Patient reports no desire to harm self or others. Onset of symptoms was April 11, 2024. 17:59 Method Of Arrival: Wheelchair 17:59 Acuity: ERIC 3 iw Triage Assessment: 19:11 General: Appears in no apparent distress. Respiratory: Airway is patent Respiratory kj2 effort is unlabored. 20:09 Respiratory: Reports shortness of breath Onset: The symptoms/episode began/occurred kj2 today, the patient has mild shortness of breath. Historical: - Allergies: 18:00 PENICILLINS; iw - PMHx: 18:00 Hypercholesterolemia; Hypertension; diabetes mellitus; Congestive heart failure; Atrial iw fibrillation; COPD; Myocardial infarction; - PSHx: 18:00 Coronary artery bypass graft; iw - Immunization history:: Adult Immunizations up to date. - Infectious Disease History:: Denies. - Social history:: Smoking status: Patient/guardian denies using tobacco, but has a distant history of tobacco abuse. Screenin:00 [facility] ED Fall Risk Assessment (Adult) History of falling in the last 3 months, rs5 including since admission Yes- single mechanical fall (1 pt) Confusion or Disorientation No (0 pts) Intoxicated or Sedated No (0 pts) Impaired Gait Yes (1 pt) Mobility Assist Device Used Yes (1 pt) Altered Elimination No (0 pt) Score/Fall Risk Level 3 or more points = High Risk Oriented to surroundings, Maintained a safe environment, Hourly rounding (assess needs \T\ fall precautionary measures) done. Abuse screen: Denies threats or abuse. Nutritional screening: No deficits noted. Tuberculosis screening: No symptoms or risk factors identified. Assessment: 17:55 General: Appears in no apparent distress. uncomfortable, Behavior is calm, cooperative. rs5 Pain: Complains of pain in left lateral anterior chest Pain currently is 8 out of 10 on a pain scale. Quality of pain is described as aching, Is continuous. Neuro: Level of Consciousness is awake, alert, obeys commands, Oriented to person, place, time, situation. Cardiovascular: Rhythm is regular. Respiratory: Airway is patent Respiratory effort is even, unlabored, Respiratory pattern is regular, symmetrical. Respiratory: Breath sounds are clear. GI: Abdomen is round non-distended, Abd is soft and non tender X 4 quads. : No signs and/or symptoms were reported regarding the genitourinary system. EENT: No signs and/or symptoms were reported regarding the EENT system. Derm: Skin is intact, Skin is pink, warm \T\ dry. Musculoskeletal: Range of motion: intact in all extremities. 19:05 Reassessment: Patient and/or family updated on plan of care and expected duration. Pain rs5 level reassessed. Patient is alert, oriented x 3, equal unlabored respirations, skin warm/dry/pink. 19:10 Reassessment: Patient and/or family updated on plan of care and expected duration. Pain kj2 level reassessed. Patient is alert, oriented x 3, equal unlabored respirations, skin warm/dry/pink. patient reports chest pain less intense at this time, level 4. 19:53 Reassessment: Patient appears in no apparent distress at this time. Patient and/or kj2 family updated on plan of care and expected duration. Pain level reassessed. Patient is alert, oriented x 3, equal unlabored respirations, skin warm/dry/pink. 20:27 Reassessment: patient refused recheck of blood sugar. kj2 Vital Signs: 18:02 BP 130 / 84; Pulse 102; Resp 18; Temp 98(O); Pulse Ox 94% on R/A; rs5 19:10 BP 109 / 50; Pulse 103; Resp 20; Pulse Ox 91% on R/A; kj2 20:27 BP 91 / 64; Pulse 68; Resp 18; Temp 98; Pulse Ox 97% ; kj2 ED Course: 17:52 Patient arrived in ED. ra3 17:53 [facility] jh7 17:53 Josue Stovall MD is Attending Physician. jh7 17:55 No provider procedures requiring assistance completed. Inserted saline lock: 24 gauge rs5 in right hand, using aseptic technique. 18:00 Triage completed. iw 18:00 Arm band placed on. iw 18:00 Patient has correct armband on for positive identification. Bed in low position. Call rs5 light in reach. Side rails up X2. 18:08 Amor Curtis, RN is Primary Nurse. rs5 18:17 XRAY Chest (1 view) In Process Unspecified. EDMS 18:17 XRAY Ribs LEFT In Process Unspecified. EDMS 18:42 CT Head Brain wo Cont In Process Unspecified. EDMS 20:10 Provided Education on: fall precaution. kj2 20:10 IV discontinued, intact, bleeding controlled, No redness/swelling at site. Pressure kj2 dressing applied. Administered Medications: 18:20 Drug: fentaNYL (PF) IVP 50 mcg IVP once Route: IVP; Site: right hand; rs5 19:52 Follow up: Response: No adverse reaction; Pain is unchanged, physician notified kj2 19:50 Drug: Insulin Regular Human IVP 5 units IVP once {Co-Signature: cp4 (Jocelyn, kj2 Kandice).} Route: IVP; Site: right hand; 20:26 Follow up: Response: No adverse reaction kj2 20:23 Drug: HYDROcodone-acetaminophen PO 5 mg-325 mg 1 tabs PO once Route: PO; kj2 20:23 Follow up: Response: Medication administered at discharge. kj2 Medication: 19:06 VIS not applicable for this client. rs5 Outcome: 20:00 Discharge ordered by . jh7 20:09 Discharged to home ambulatory, with family, kj2 20:09 Condition: stable 20:09 Discharge instructions given to patient, Instructed on discharge instructions, follow up and referral plans. Demonstrated understanding of instructions, follow-up care, 20:28 Patient left the ED. kj2 Signatures: Dispatcher [employer] Elizabeth Harris, RN RN iw Adriana Colin, SAP PROJECT MANAGER SAP PROJECT MANAGER jh7 Amor Curtis, RN RN rs5 Becky Mckeon ra3 Soledad Figueroa RN RN kj2 Kandice Banks cp4
[2024-04-11] MEDS ORDERED: HYDROCODONE/APAP 5/325 MG TAB ONE (20:17)
[2024-04-11 20:42] VITALS: TEMP 98
[2024-04-11 20:53] VITALS: BP 91/64; O2SAT 97
--- NOTE | 2024-04-20 11:16 | EKG ---
Test Date: 2024-04-11 Test Time: 18:02:57 Application Services Manager: PAUL MEASUREMENT RESULTS: Intervals: Rate: 110 NC: 128 QRSD: 142 QT: 366 QTc: 495 [place]: P: 76 NC: 128 QRS: 37 T: 49 INTERPRETIVE STATEMENTS: Sinus tachycardia Right bundle branch block Abnormal ECG Compared to ECG 03/22/2024 13:19:22 Left-axis deviation no longer present Electronically Signed On 04-20-24 11:03:59 CONCRETE FORM SETTER AND FINISHER by Jabari Horton
== END 2024-04-11 20:28 | disposition home or self-care (01) ==
LOC: ER 17:50
DX: S20.212A Contusion of left front wall of thorax, initial encounter (principal); E11.65 Type 2 diabetes mellitus with hyperglycemia; W18.30XA Fall on same level, unspecified, initial encounter; I48.91 Unspecified atrial fibrillation; Z79.01 Long term (current) use of anticoagulants; Z95.1 Presence of aortocoronary bypass graft
CPT/HCPCS: 93005; 85025; 81001; 80048; 36415; 83735; 85610; 84484; 83880; 70450; 71045; 71100; 96375; 96374; 99284; J3010

== ENCOUNTER 2024-04-15 17:17 | Emergency (ER) | payer OTHER ==
--- NOTE | 2024-04-15 18:13 | RAD REPORT ---
EXAMINATION: ONE VIEW CHEST XR CLINICAL INDICATION: malaise weakness TECHNIQUE: Frontal chest projection is submitted. Examination is limited by patient positioning and t echnique. COMPARISON: 04/11/2024 FINDINGS: The lungs are diffusely emphysematous but grossly clear. The heart is normal in size. No displaced fr actures identified. Sternotomy. IMPRESSION: COPD without an acute process suspected.
[2024-04-15 19:01] LABS: Specific Gravity > 1.030 (1.005-1.030); Sqamous Epithelial <5 /HPF (None Seen); Urine Bacteria None Seen /HPF (<20); Urine Bilirubin NEGATIVE (Negative); Urine Blood Negative (Negative); Urine Clarity Clear (Clear); Urine Color Light-Yellow (Yellow); Urine Crystals Unidentified Few /HPF (None Seen); Urine Culture Reflex Order NOT NEEDED; Urine Glucose 4+ (Over) (Negative); Urine Ketones NEGATIVE (Negative); Urine Microscopic Reflex YN ORDER UMIC; Urine Mucus Slight /HPF (None Seen); Urine Nitrite NEGATIVE (Negative); Urine Protein NEGATIVE (Negative); Urine Urobilinogen Normal (Normal); Urine WBC <5 /HPF (<5); Urine Yeast (Budding) Trace /HPF (None Seen)
[2024-04-15 19:14] LABS: Albumin 3.4 g/dL (3.4-5.0); Albumin/Globulin Ratio 1.1 (1.1-1.8); Bilirubin Total 0.6 mg/dL (0.2-1.0); Globulin 3.2 g/dL (2.3-3.5); Protein, Total 6.6 g/dL (6.4-8.2); Troponin High Sensitivity 6.4 pg/mL (<58.9)
[2024-04-15 19:21] LABS: PT Prothrombin Time 13.2 SECONDS (9.4-12.5); Protime INR 1.18
[2024-04-15 19:37] LABS: Absolute Basophils 0.1 K/uL (0-0.5); Absolute Eosinophils 0.3 K/uL (0-0.5); Absolute Lymphocytes (CBC) 1.8 K/uL (0.7-4.9); Absolute Monocytes 0.7 K/uL (0.1-1.3); Basophils % 0.8 % (0-1.3); Eosinophils % 2.6 % (0-4.4); Hematocrit 45.6 % (36.0-45.0); Hemoglobin 15.3 g/dL (12.0-15.0); Lymphocytes % 18.4 % (15.3-44.8); MCH 28.7 pg (27.0-35.0); MCHC 33.6 g/dL (32.0-36.0); MCV 85.7 fL (80-100); MPV 8.1 fL (7.6-11.3); Monocytes % 6.8 % (3.3-12.3); Neutrophils % 71.4 % (41.7-73.7); Nucleated Red Blood Cells % 0.3 % (0-0); Platelets 175 thou/uL (152-406); RBC Red Blood Cell Count 5.33 M/uL (3.86-4.86); Red Cell Distribution Width 15.6 % (12.1-15.2)
--- NOTE | 2024-04-15 19:44 | ER ---
Nurse's Notes [facility] Name: Olena Orourke Age: 63 yrs Sex: Female : 1960 Arrival Date: 04/15/2024 Time: 17:17 Bed 14 Private MD: Diagnosis: Viral illness Presentation: 04/15 17:38 Chief complaint: Patient states: she started feeling weak, having blurred vision and me1 urinary incontinence last night. Blood sugar was 479 today and she took some insulin and it came down to 370 but she doesn't feel any better. Coronavirus screen: Vaccine status: Patient reports being unvaccinated. Ebola Screen: No symptoms or risks identified at this time. 17:38 Method Of Arrival: Wheelchair wa1 17:41 Initial Sepsis Screen: Does the patient meet any 2 criteria? HR > 90 bpm. Does the me1 patient have a suspected source of infection?. Risk Assessment: Do you want to hurt yourself or someone else? Patient reports no desire to harm self or others. Onset of symptoms was April 14, 2024. 17:41 Acuity: ERIC 3 me1 Triage Assessment: 17:41 General: Appears ill, unkempt, well developed, well nourished, Behavior is calm, me1 cooperative, appropriate for age, Reports elevated blood sugar, blurred vision, urinary incontinence and generalized weakness since last night. Pain: Denies pain. EENT: No signs and/or symptoms were reported regarding the EENT system. Neuro: Level of Consciousness is awake, alert, obeys commands, Oriented to person, place, time, situation, Appropriate for age. Cardiovascular: Patient's skin is warm and dry. Respiratory: Airway is patent Respiratory effort is even, unlabored, Respiratory pattern is regular, symmetrical. GI: No signs and/or symptoms were reported involving the gastrointestinal system. : No signs and/or symptoms were reported regarding the genitourinary system. Derm: Skin is intact, is healthy with good turgor, Skin is pink, warm \T\ dry. Musculoskeletal: No signs and/or symptoms reported regarding the musculoskeletal system. Historical: - Allergies: 17:41 PENICILLINS; me1 - PMHx: 17:41 Atrial fibrillation; Congestive heart failure; COPD; diabetes mellitus; me1 Hypercholesterolemia; Hypertension; Myocardial infarction; - PSHx: 17:41 Coronary artery bypass graft; me1 - Immunization history:: Adult Immunizations up to date. - Infectious Disease History:: Denies. - Social history:: Smoking status: Patient reports the use of cigarette tobacco products, smokes one-half pack cigarettes per day. Screenin:43 [facility] ED Fall Risk Assessment (Adult) History of falling in the last 3 months, me1 including since admission No falls in past 3 months (0 pts) Confusion or Disorientation No (0 pts) Intoxicated or Sedated No (0 pts) Impaired Gait No (0 pts) Mobility Assist Device Used No (0 pt) Altered Elimination No (0 pt) Score/Fall Risk Level 0 - 2 = Low Risk Maintained a safe environment, Provided non-skid footwear, Hourly rounding (assess needs \T\ fall precautionary measures) done. Abuse screen: Denies threats or abuse. Nutritional screening: No deficits noted. Tuberculosis screening: No symptoms or risk factors identified. Assessment: 17:43 Reassessment: See triage assessment. me1 Vital Signs: 17:38 BP 137 / 98; Pulse 115; Resp 20; Temp 98.4; Pulse Ox 98% on R/A; Weight 63.5 kg; Height me1 5 ft. 2 in. ; Pain 0/10; 18:30 BP 132 / 85; Pulse 99; Resp 16; Pulse Ox 95% on R/A; me1 19:30 BP 119 / 56; Pulse 101; Resp 15; Temp 98.4; Pulse Ox 95% ; me1 17:38 Body Mass Index 25.61 (63.50 kg, 157.48 cm) me1 17:38 Pain Scale: Adult wa1 ED Course: 17:20 Patient arrived in ED. sj2 17:22 Linda Aguilera MD is Attending Physician. sp3 17:30 Reny Morgan RN is Primary Nurse. me1 17:41 Triage completed. me1 17:41 Arm band placed on Patient placed in an exam room. me1 17:43 Patient has correct armband on for positive identification. Bed in low position. Call wa1 light in reach. Side rails up X 1. Provided Education on: POC. Verbalized understanding.. Client placed on continuous cardiac and pulse oximetry monitoring. NIBP monitoring applied. Pulse ox on. NIBP on. 17:43 No provider procedures requiring assistance completed. me1 18:02 Chest Single View XRAY In Process Unspecified. EDMS 18:35 Initial lab(s) drawn, by me, sent to lab. First set of blood cultures drawn by me, me1 Urine collected: clean catch specimen, clear. 18:39 Inserted saline lock: 22 gauge in left hand, using aseptic technique. me1 18:40 Blood Culture Adult (2) Sent. me1 18:40 CBC with Diff Sent. me1 18:40 CMP Sent. me1 18:40 Lactate w/ 2H reflex if indic. Sent. me1 18:40 Protime (+inr) Sent. me1 18:40 Urinalysis w/ reflexes Sent. me1 18:40 Troponin High Sensitivity Sent. me1 18:41 Second set of blood cultures drawn by me. me1 19:10 EKG done, by ED staff, reviewed by Linda Aguilera MD. me1 19:55 IV discontinued, intact, bleeding controlled, No redness/swelling at site. Pressure me1 dressing applied. Administered Medications: No medications were administered Medication: 17:43 VIS not applicable for this client. me1 Outcome: 19:43 Discharge ordered by . sp3 19:55 Discharged to home ambulatory, with significant other, me1 19:55 Condition: stable 19:55 Discharge instructions given to patient, significant other, Instructed on discharge instructions, follow up and referral plans. Demonstrated understanding of instructions, follow-up care, 19:55 Patient left the ED. me1 Signatures: Dispatcher [employer] Linda Ramos MD MD sp3 Reny Morgan, VELMA RN me1 Caitlin Barraza sj2
--- NOTE | 2024-04-15 19:44 | EDPHYS ---
Physician Documentation [facility] Name: Olena Orourke Age: 63 yrs Sex: Female : 1960 Arrival Date: 04/15/2024 Time: 17:17 Bed 14 Private MD: ED Physician Linda Aguilera HPI: 04/15 17:59 This 63 yrs old Female presents to ER via Wheelchair with complaints of High Blood sp3 Sugar, Weakness, Urinary Problem. 17:59 63-year-old female with history of diabetes, COPD, atrial fibrillation, hyperlipidemia sp3 presents to the ED with chief complaint generalized weakness and malaise and "sticky urine when she steps and it". Symptoms been going on for 3 to 4 days. She feels like she may have a bladder infection. She denies any headache, fever, chest pain, shortness of breath, vomiting or diarrhea, syncope, near syncope, rash or any other signs or symptoms on ROS at this time.. Historical: - Allergies: 17:41 PENICILLINS; me1 - PMHx: 17:41 Atrial fibrillation; Congestive heart failure; COPD; diabetes mellitus; me1 Hypercholesterolemia; Hypertension; Myocardial infarction; - PSHx: 17:41 Coronary artery bypass graft; me1 - Immunization history:: Adult Immunizations up to date. - Infectious Disease History:: Denies. - Social history:: Smoking status: Patient reports the use of cigarette tobacco products, smokes one-half pack cigarettes per day. ROS: 18:04 Constitutional: Negative for fever, chills, and weight loss, Eyes: Negative for injury, sp3 pain, redness, and discharge, Neck: Negative for injury, pain, and swelling, Cardiovascular: Negative for chest pain, palpitations, and edema, Respiratory: Negative for shortness of breath, cough, wheezing, and pleuritic chest pain, Back: Negative for injury and pain, MS/Extremity: Negative for injury and deformity, Skin: Negative for injury, rash, and discoloration, Neuro: Negative for headache, weakness, numbness, tingling, and seizure, Psych: Negative for depression, anxiety, suicide ideation, homicidal ideation, and hallucinations, Allergy/Immunology: Negative for hives, rash, and allergies, Endocrine: Negative for neck swelling, polydipsia, polyuria, polyphagia, and marked weight changes, Hematologic/Lymphatic: Negative for swollen nodes, abnormal bleeding, and unusual bruising, Exam: 18:06 Constitutional: This is a well developed, well nourished patient who is awake, alert, sp3 and in no acute distress. Head/Face: Normocephalic, atraumatic. Eyes: Pupils equal round and reactive to light, extra-ocular motions intact. Lids and lashes normal. Conjunctiva and sclera are non-icteric and not injected. Cornea within normal limits. Periorbital areas with no swelling, redness, or edema. Neck: Trachea midline, no thyromegaly or masses palpated, and no cervical lymphadenopathy. Supple, full range of motion without nuchal rigidity, or vertebral point tenderness. No Meningismus. Chest/axilla: Normal chest wall appearance and motion. Nontender with no deformity. No lesions are appreciated. Respiratory: Lungs have equal breath sounds bilaterally, clear to auscultation and percussion. No rales, rhonchi or wheezes noted. No increased work of breathing, no retractions or nasal flaring. Abdomen/GI: Soft, non-tender, with normal bowel sounds. No distension or tympany. No guarding or rebound. No evidence of tenderness throughout. Back: No spinal tenderness. No costovertebral tenderness. Full range of motion. Skin: Warm, dry with normal turgor. Normal color with no rashes, no lesions, and no evidence of cellulitis. MS/ Extremity: Pulses equal, no cyanosis. Neurovascular intact. Full, normal range of motion. Neuro: Awake and alert, GCS 15, oriented to person, place, time, and situation. Cranial nerves II-XII grossly intact. Motor strength 5/5 in all extremities. Sensory grossly intact. Cerebellar exam normal. Normal gait. Psych: Awake, alert, with orientation to person, place and time. Behavior, mood, and affect are within normal limits. 18:06 Cardiovascular: Rate: tachycardic, 18:06 Constitutional: The patient appears Extreme smell of cigarette smoke coming from sp3 patient. She appears generally weak. 19:16 ECG was reviewed by the Attending Physician. EKG demonstrates normal sinus rhythm at 98 sp3 bpm with right bundle branch block, and nonspecific diffuse ST/T changes without evidence of acute ischemia. Vital Signs: 17:38 BP 137 / 98; Pulse 115; Resp 20; Temp 98.4; Pulse Ox 98% on R/A; Weight 63.5 kg; Height me1 5 ft. 2 in. ; Pain 0/10; 18:30 BP 132 / 85; Pulse 99; Resp 16; Pulse Ox 95% on R/A; me1 19:30 BP 119 / 56; Pulse 101; Resp 15; Temp 98.4; Pulse Ox 95% ; me1 17:38 Body Mass Index 25.61 (63.50 kg, 157.48 cm) me1 17:38 Pain Scale: Adult me1 MDM: 17:31 Medical Screening Exam initiated sp3 18:07 Data reviewed: vital signs, nurses notes, old medical records, lab test result(s), sp3 radiologic studies. ED course: 63-year-old female with generalized malaise and reports of hyperglycemia. Differential diagnosis includes DKA, UTI, other infection, dehydration, ACS, and to a lesser degree sepsis/SIRS. Workup will include generalized labs, lactate, cultures, IV fluids, chest x-ray, EKG, and general supportive care. Disposition probable admission however final disposition pending workup and patient course.. 19:43 ED course: Full workup negative. Heart rate is now in the 90s. Patient in no acute sp3 distress. Patient is not in DKA does not have any other concerning findings. We will discharge her with PCP follow-up.. 04/15 17:34 Order name: Blood Culture Adult (2) sp3 04/15 17:34 Order name: CBC with Diff; Complete Time: 19:42 sp3 04/15 17:34 Order name: CMP; Complete Time: 19:33 sp3 04/15 17:34 Order name: Lactate w/ 2H reflex if indic.; Complete Time: 19:16 sp3 04/15 17:34 Order name: Protime (+inr); Complete Time: 19:33 sp3 04/15 17:34 Order name: Urinalysis w/ reflexes; Complete Time: 19:16 sp3 04/15 17:34 Order name: Troponin High Sensitivity; Complete Time: 19:33 sp3 04/15 19:16 Order name: Glucose, Ancillary Testing; Complete Time: 19:33 EDMS 04/15 17:34 Order name: Chest Single View XRAY; Complete Time: 18:16 sp3 04/15 17:34 Order name: EKG; Complete Time: 17:34 sp3 04/15 17:34 Order name: Cardiac monitoring; Complete Time: 19:10 sp3 04/15 17:34 Order name: EKG - Nurse/Tech; Complete Time: 19:10 sp3 04/15 17:34 Order name: IV Saline Lock - Large Bore; Complete Time: 18:40 sp3 04/15 17:34 Order name: Labs collected and sent; Complete Time: 18:40 sp3 04/15 17:34 Order name: O2 Per Protocol; Complete Time: 18:40 sp3 04/15 17:34 Order name: O2 Sat Monitoring; Complete Time: 18:40 sp3 04/15 17:34 Order name: Vital Signs; Complete Time: 18:40 sp3 04/15 18:52 Order name: Labs - recollect needed; Complete Time: 19:10 kmf Administered Medications: No medications were administered Disposition Summary: 04/15/24 19:43 Discharge Ordered Notes: Location: Home sp3 Condition: Stable sp3 Diagnosis - Viral illness sp3 Followup: sp3 - With: Private Physician - When: Upon discharge from the Emergency Department - Reason: Recheck today's complaints, Continuance of care Discharge Instructions: - Discharge Summary Sheet sp3 - Viral Illness, Adult sp3 Forms: - Medication Reconciliation Form sp3 - Antibiotic Education sp3 - Prescription Opioid Use sp3 - Patient Portal Instructions sp3 - Leadership Thank You Letter sp3 Signatures: Dispatcher [employer] Linda Ramos MD MD sp3 Reny Morgan RN RN 1 Ximena Adam kmf
[2024-04-15 20:23] VITALS: TEMP 98.4
[2024-04-15 20:29] VITALS: O2SAT 95
[2024-04-15 20:34] VITALS: BP 119/56
--- NOTE | 2024-04-20 10:58 | EKG ---
Test Date: 2024-04-15 Test Time: 18:58:50 Store Merchandiser: MEASUREMENT RESULTS: Intervals: Rate: 98 NJ: 134 QRSD: 138 QT: 380 QTc: 485 [place]: P: 67 NJ: 134 QRS: 68 T: 59 INTERPRETIVE STATEMENTS: Normal sinus rhythm Right bundle branch block Abnormal ECG Compared to ECG 04/11/2024 18:02:57 Sinus tachycardia no longer present Electronically Signed On 04-20-24 10:52:44 ACQUISITION ANALYST by Jabari Horton
== END 2024-04-15 19:55 | disposition home or self-care (01) ==
LOC: ER 17:17
DX: B34.9 Viral infection, unspecified (principal); I10 Essential (primary) hypertension; F17.210 Nicotine dependence, cigarettes, uncomplicated; E11.9 Type 2 diabetes mellitus without complications; J44.9 Chronic obstructive pulmonary disease, unspecified; Z95.1 Presence of aortocoronary bypass graft
CPT/HCPCS: 36415; 71045; 80053; 81001; 82947; 83605; 84484; 85025; 85610; 87040; 93005; 99284

== ENCOUNTER 2024-04-20 16:52 | Inpatient (IN) | payer OTHER ==
--- NOTE | 2024-04-20 18:10 | RAD REPORT ---
EXAMINATION: ONE VIEW CHEST XR CLINICAL INDICATION: Female, 63 years old.,Congestion;Cough;Dyspnea TECHNIQUE: Frontal chest projection is submitted. Examination is limited by patient positioning and t echnique. COMPARISON: 04/15/2024 FINDINGS: The lungs are diffusely emphysematous but grossly clear apart from stable left basilar streaky opacit ies which could reflect atelectasis or mild airspace disease. No pneumothorax or sizable effusion. The heart is normal in size. Mediastinal contours are unchanged. IMPRESSION: Left basilar streaky opacities, stable, could reflect atelectasis or mild airspace disease.
[2024-04-20 18:14] LABS: SARS-CoV-2 Antigen CONTROL BLUE LINE VIS/BG OK; SARS-CoV-2 Antigen Rapid Res Negative (Negative)
[2024-04-20 18:24] LABS: PT Prothrombin Time 11.5 SECONDS (9.4-12.5); PTT, Activated Partial Thromb 32.7 SECONDS (24.3-36.9); Protime INR 1.1
[2024-04-20 18:30] LABS: Absolute Lymphocytes (CBC) 0.4 K/uL (0.7-4.9); Absolute Monocytes 0.6 K/uL (0.1-1.3); Absolute Neutrophil 7.3 K/uL (1.8-8.0); Basophils % 0.2 % (0-1.3); Hematocrit 50.9 % (36.0-45.0); Hemoglobin 17.5 g/dL (12.0-15.0); Lymphocytes % 4.5 % (15.3-44.8); MCH 28.8 pg (27.0-35.0); MCHC 34.4 g/dL (32.0-36.0); MCV 83.6 fL (80-100); MPV 8.7 fL (7.6-11.3); Monocytes % 7.2 % (3.3-12.3); Neutrophils % 88.1 % (41.7-73.7); Nucleated Red Blood Cells % 0.4 % (0-0); Platelets 130 thou/uL (152-406); RBC Red Blood Cell Count 6.09 M/uL (3.86-4.86); Red Cell Distribution Width 15.9 % (12.1-15.2)
[2024-04-20 18:35] LABS: Albumin 3.8 g/dL (3.4-5.0); Albumin/Globulin Ratio 0.9 (1.1-1.8); Anion Gap 19.2 mEq/L (5.0-15.0); Bilirubin Total 1.1 mg/dL (0.2-1.0); Globulin 4.4 g/dL (2.3-3.5); Potassium 4.2 mEq/L (3.5-5.1); Protein, Total 8.2 g/dL (6.4-8.2)
[2024-04-20] MEDS ORDERED: ALBUTEROL 2.5 MG/3 ML NEB SOL ONE (18:37)
[2024-04-20] MEDS ORDERED: NA CHLORIDE 0.9% 500 ML ONE (18:38)
[2024-04-20] MEDS ORDERED: IPRATROPIUM BROM 0.5MG/2.5ML ONE (18:38)
[2024-04-20] MEDS ORDERED: ONDANSETRON 4 MG/2 ML VIAL ONE (18:38)
[2024-04-20] MEDS ORDERED: METHYLPREDNISOLONE 125 MG INJ ONE (18:38)
[2024-04-20 18:46] LABS: Blood Morphology Comment NOT SEEN (NOT SEEN); Platelet Estimate ADEQ; White Blood Cell Scan OK (OK)
--- NOTE | 2024-04-20 18:53 | EDPHYS ---
Physician Documentation [facility] Name: Olena Orourke Age: 63 yrs Sex: Female : 1960 Arrival Date: 04/20/2024 Time: 16:52 Bed 17 Private MD: ED Physician Suresh Ernandez HPI: 04/20 17:18 This 63 yrs old Female presents to ER via Unassigned with complaints of Breathing kb Difficulty, Flu Symptoms. 17:18 pt is a 63 year old female who presents for fatigue, cough, congestion, fever, kb bodyaches, chills, n/v/d that started 3 days ago. No aggravating or alleviating factors. . Historical: - Allergies: 17:21 PENICILLINS; cm10 - PMHx: 17:21 Atrial fibrillation; Congestive heart failure; COPD; diabetes mellitus; cm10 Hypercholesterolemia; Hypertension; Myocardial infarction; - PSHx: 17:21 Coronary artery bypass graft; cm10 - Immunization history:: Adult Immunizations up to date. - Infectious Disease History:: Denies. - Social history:: Smoking status: Patient reports the use of cigarette tobacco products, smokes one-half pack cigarettes per day. ROS: 17:18 Constitutional: As per HPI kb Exam: 18:45 Constitutional: This is a well developed, well nourished patient who is awake, alert, kb and in no acute distress. Head/Face: Normocephalic, atraumatic. ENT: Moist Mucous membranes Cardiovascular: Regular rate Abdomen/GI: Soft, non-tender. No distention Skin: Warm, dry with normal turgor. Normal color. MS/ Extremity: Pulses equal, no cyanosis. Neurovascular intact. Full, normal range of motion. Neuro: Awake and alert, GCS 15, oriented to person, place, time, and situation. 18:45 Respiratory: the patient does not display signs of respiratory distress, Respirations: normal, Breath sounds: are clear throughout, 22:57 ECG was reviewed by the Attending Physician. Vital Signs: 17:22 BP 108 / 91; Pulse 108; Resp 19; Temp 97.7(TE); Pulse Ox 91% on R/A; Weight 58.97 kg; cm10 Height 5 ft. 2 in. ; Pain 10/10; 20:00 BP 121 / 67; Pulse 100; Resp 19; Pulse Ox 99% on R/A; me1 21:00 BP 115 / 63; Pulse 95; Resp 18; Pulse Ox 97% on R/A; me1 22:00 BP 111 / 72; Pulse 96; Resp 17; Pulse Ox 96% on 3 lpm NC; me1 23:00 BP 125 / 73; Pulse 103; Resp 19; Pulse Ox 97% on 3 lpm NC; me1 04/21 12:00 BP 112 / 70; Pulse 88; Resp 18; Pulse Ox 96% on R/A; kj2 13:30 BP 118 / 72; Pulse 80; Resp 20; Pulse Ox 100% on R/A; kj2 15:42 BP 120 / 73; Pulse 88; Resp 18; Pulse Ox 96% on 2 lpm NC; kj2 04/20 17:22 Body Mass Index 23.78 (58.97 kg, 157.48 cm) cm10 04/20 17:22 Pain Scale: Adult 10 04/20 22:00 wears o2 at home to sleep. fl1 MDM: 17:06 Medical Screening Exam initiated kb 18:49 Differential diagnosis: asthma, Chronic Obstructive Pulmonary Disease flu, uri, covid. kb Data reviewed: vital signs, nurses notes. Consideration of Admission/Observation Patient was admitted/placed on observation. Escalation of care including admission/observation considered. Management of patient was discussed with the following: Hospitalist: Dr Max accepts pt for admission. Historians other than the Patient: Spouse/Significant Other: spouse. Counseling: I had a detailed discussion with the patient and/or guardian regarding the historical points, exam findings, and any diagnostic results supporting the discharge/admit diagnosis, lab results, radiology results, the need for further work-up and treatment in the hospital. 04/20 17:23 Order name: Blood Culture Adult (2) kb 04/20 17:23 Order name: CBC with Diff; Complete Time: 18:53 kb 04/20 17:23 Order name: CMP; Complete Time: 18:38 kb 04/20 17:23 Order name: Lactate w/ 2H reflex if indic.; Complete Time: 18:41 kb 04/20 17:23 Order name: Protime (+inr); Complete Time: 18:25 kb 04/20 17:23 Order name: Ptt, Activated; Complete Time: 18:25 kb 04/20 17:46 Order name: Flu; Complete Time: 18:16 kb 04/20 17:46 Order name: SARS-COV-2 Antigen Rapid; Complete Time: 18:16 kb 04/20 18:34 Order name: CBC Smear Scan; Complete Time: 18:53 EDMS 04/20 18:45 Order name: ABG; Complete Time: 19:45 kb 04/20 19:25 Order name: Urinalysis w/ reflexes; Complete Time: 00:36 EDMS 04/20 19:28 Order name: CBC with Automated Diff EDMS 04/20 19:28 Order name: CBC with Automated Diff EDMS 04/20 19:28 Order name: Comprehensive Metabolic Panel EDMS 04/20 19:28 Order name: Comprehensive Metabolic Panel EDMS 04/20 20:32 Order name: glucometer results - FOR PT WITH NO ID me1 04/20 20:42 Order name: Glucose, Ancillary Testing; Complete Time: 20:43 EDMS 04/20 21:37 Order name: Glucose, Ancillary Testing; Complete Time: 21:45 EDMS 04/20 22:00 Order name: Glucose, Ancillary(No Armband); Complete Time: 22:01 EDMS 04/20 22:25 Order name: BMP kb 04/20 22:44 Order name: Glucose, Ancillary Testing; Complete Time: 22:57 EDMS 04/20 23:04 Order name: Basic Metabolic Panel; Complete Time: 23:22 EDMS 04/20 23:04 Order name: NT PRO-BNP; Complete Time: 23:22 EDMS 04/20 23:40 Order name: Glucose, Ancillary Testing; Complete Time: 00:36 EDMS 04/21 00:42 Order name: Glucose, Ancillary Testing EDMS 04/21 01:53 Order name: Glucose, Ancillary Testing EDMS 04/21 02:24 Order name: Glucose, Ancillary Testing EDMS 04/21 03:32 Order name: Glucose, Ancillary Testing EDMS 04/21 06:24 Order name: Glucose, Ancillary Testing EDMS 04/21 12:23 Order name: Glucose, Ancillary Testing EDMS 04/21 15:52 Order name: Glucose, Ancillary Testing EDMS 04/20 17:23 Order name: Chest Single View XRAY; Complete Time: 18:13 kb 04/20 17:23 Order name: EKG; Complete Time: 17:23 kb 04/20 17:23 Order name: Cardiac monitoring; Complete Time: 23:29 kb 04/20 17:23 Order name: EKG - Nurse/Tech; Complete Time: 23:29 kb 04/20 17:23 Order name: IV Saline Lock - Large Bore; Complete Time: 18:50 kb 04/20 17:23 Order name: Labs collected and sent; Complete Time: 18:06 kb 04/20 17:23 Order name: O2 Per Protocol; Complete Time: 18:50 kb 04/20 17:23 Order name: O2 Sat Monitoring; Complete Time: 18:50 kb 04/20 17:23 Order name: Vital Signs; Complete Time: 18:50 kb EC:57 Rate is 102 beats/min. Rhythm is regular. QRS [place] is Normal. [place] interval is normal at kb 130 msec. QRS interval is normal at 148 msec. QT interval is prolonged at 542 msec. Administered Medications: 18:49 Drug: MethylPrednisoLONE IVP 125 mg IVP once Route: IVP; Site: left antecubital; me1 18:55 Follow up: Response: No adverse reaction me1 18:49 Drug: Ondansetron IVP 4 mg IVP once; over 2 minutes Route: IVP; Site: left antecubital; me1 18:55 Follow up: Response: No adverse reaction; Nausea is decreased me1 18:49 Drug: NS 0.9% IV 500 ml 500 ml IV at 1 bolus once; to be given as a bolus over 30 me1 minutes Volume: 500 ml; Route: IV; Rate: 1 bolus; Site: left antecubital; 19:45 Follow up: IV Status: Completed infusion; IV Intake: 500ml me1 18:50 Drug: Albuterol Inhalation 2.5 mg Inhalation once Route: Inhalation; me1 18:55 Follow up: Response: No adverse reaction; Wheezing diminished me1 18:50 Drug: Ipratropium Inhalation Aerosol 0.5 mg Inhalation once Route: Inhalation; me1 18:55 Follow up: Response: No adverse reaction; Wheezing diminished me1 19:15 Drug: Zithromax IVPB 500 mg IVPB once over 1 hrs; mix in 250 mL NS Route: IVPB; Infused me1 Over: 1 hrs; Site: right antecubital; 20:28 Follow up: Response: No adverse reaction; IV Status: Completed infusion; IV Intake: me1 250ml 19:45 Drug: NS 0.9% IV 1000 ml IV at 1000 ml once; to be given as a bolus over 60 minutes me1 Route: IV; Rate: 1000 ml; Site: right antecubital; 20:45 Follow up: Response: No adverse reaction; IV Status: Completed infusion; IV Intake: me1 1000ml 20:30 Drug: Insulin Drip - (Insulin Regular Human IVP 100 units, NS 0.9% IV 100 ml) IV at me1 calculated rate continuous; Standard concentration 1unit/ml; Dose for DKA is 0.1 units/kg/hr {Co-Signature: ha1 (Inge Abreu RN).} Route: IV; Rate: 6 units/hr; Site: right antecubital; 21:27 Follow up: Rate change 7 units/hr; for blood sugar of 312 me1 22:43 Follow up: Rate change 3.5 units/hr; D5 NS started at 125 ml/hr per protocol for blood me1 sugar of 253 04/21 00:36 Follow up: Rate change 4.5 units/hr cp4 03:22 Follow up: Rate change 2.3 units/hr cp4 05:27 Follow up: IV Status: Completed infusion dd2 Disposition: 04/20 18:01 I was immediately available on-site in the Emergency Department for consultation in the ms3 care of the patient. 18:50 Critical Care:. 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 Total time: 30 minutes Signatures: Dispatcher [employer] Leonor Hughes, NARESH QUICK SERVICE TECHNICIAN-Tangela Cullen Marcus, DO DO ms3 Meryl Polanco, RN RN cm10 Reny Morgan, RN RN me1 Kandice Banks cp4 SUDHEER GALINDO RN dd2 Inge Abreu RN ha1 Corrections: (The following items were deleted from the chart) 17:23 17:23 BLOOD CULTURE*+BA.LAB.BRZ ordered. EDMS EDMS 17:23 17:23 CBC+H.LAB.BRZ ordered. EDMS EDMS 17:23 17:23 COMPREHENSIVE METABOLIC PANEL+C.LAB.BRZ ordered. EDMS EDMS 17:23 17:23 LACTATE+C.LAB.BRZ ordered. EDMS EDMS 17:23 17:23 PROTIME (+INR)+COAG.LAB.BRZ ordered. EDMS EDMS 17:23 17:23 PTT, ACTIVATED+COAG.LAB.BRZ ordered. EDMS EDMS 18:53 18:52 Telemetry/MedSurg (Inpatient) kb kb 18:53 18:52 kb kb 04/21 01:55 04/20 18:53 Intensive Care Unit kb cp4 04/21 01:55 04/20 18:53 kb cp4 04/21 01:56 01:55 cp4 cp4 13:26 01:55 [facility] ER HOLD cp4 bd 13:26 01:56 ERHOLD- cp4 bd
--- NOTE | 2024-04-20 18:53 | ER ---
Nurse's Notes [facility] Name: Olena Orourke Age: 63 yrs Sex: Female : 1960 Arrival Date: 04/20/2024 Time: 16:52 Bed 17 Private MD: Diagnosis: Diabetes mellitus due to underlying condition with ketoacidosis without coma;Influenza due to identified novel influenza A virus;Dehydration Presentation: 04/20 17:22 Chief complaint: Patient states: Cough, body aches, congestion, fatigue, fever, and cm10 nausea, vomiting and diarrhea onset 3 days ago. Coronavirus screen: Client denies travel out of the [place] in the last 14 days. Ebola Screen: Patient denies travel to an Ebola-affected area in the 21 days before illness onset. Initial Sepsis Screen: Does the patient meet any 2 criteria? HR > 90 bpm. Does the patient have a suspected source of infection? No. Patient's initial sepsis screen is negative. Risk Assessment: Do you want to hurt yourself or someone else? Patient reports no desire to harm self or others. Onset of symptoms was April 20, 2024. 17:22 Method Of Arrival: Wheelchair cm10 17:22 Acuity: ERIC 3 cm10 Triage Assessment: 04/21 00:41 Respiratory: Onset: The symptoms/episode began/occurred. cp4 13:31 Respiratory: the patient has moderate shortness of breath. kj2 Historical: - Allergies: 04/20 17:21 PENICILLINS; cm10 - PMHx: 17:21 Atrial fibrillation; Congestive heart failure; COPD; diabetes mellitus; cm10 Hypercholesterolemia; Hypertension; Myocardial infarction; - PSHx: 17:21 Coronary artery bypass graft; cm10 - Immunization history:: Adult Immunizations up to date. - Infectious Disease History:: Denies. - Social history:: Smoking status: Patient reports the use of cigarette tobacco products, smokes one-half pack cigarettes per day. Screenin:45 [facility] ED Fall Risk Assessment (Adult) History of falling in the last 3 months, me1 including since admission No falls in past 3 months (0 pts) Confusion or Disorientation No (0 pts) Intoxicated or Sedated No (0 pts) Impaired Gait No (0 pts) Mobility Assist Device Used No (0 pt) Altered Elimination No (0 pt) Score/Fall Risk Level 0 - 2 = Low Risk Maintained a safe environment, Provided non-skid footwear, Hourly rounding (assess needs \T\ fall precautionary measures) done. Abuse screen: Denies threats or abuse. Nutritional screening: No deficits noted. Tuberculosis screening: No symptoms or risk factors identified. Assessment: 17:45 General: Appears ill, Behavior is calm, cooperative, appropriate for age, Reports me1 Cough, body aches, congestion, fatigue, fever, and nausea, vomiting and diarrhea onset 3 days ago. Pain: Denies pain. Neuro: Level of Consciousness is awake, alert, obeys commands, Oriented to person, place, time, situation, Appropriate for age. Cardiovascular: Patient's skin is warm and dry. Cardiovascular: Rhythm is. Respiratory: Airway is patent Respiratory effort is even, unlabored, Respiratory pattern is regular, symmetrical, Breath sounds with crackles bilaterally. Respiratory: Reports cough that is. GI: No signs and/or symptoms were reported involving the gastrointestinal system. GI: Reports diarrhea, nausea, vomiting, since 3 days ago. : No signs and/or symptoms were reported regarding the genitourinary system. EENT: No signs and/or symptoms were reported regarding the EENT system. Derm: Skin with poor turgor Skin is normal. Musculoskeletal: Reports body aches with fever. 23:33 Reassessment: Patient and/or family updated on plan of care and expected duration. Pain me1 level reassessed. Patient is alert, oriented x 3, equal unlabored respirations, skin warm/dry/pink. Report given to VELMA Woodson. 04/21 12:00 Reassessment: Patient appears in no apparent distress at this time. Patient and/or kj2 family updated on plan of care and expected duration. Pain level reassessed. Patient is alert, oriented x 3, equal unlabored respirations, skin warm/dry/pink. pt reports generalized pain, will give tylenol as ordered in meditech. 13:00 Reassessment: Patient appears in no apparent distress at this time. Patient and/or kj2 family updated on plan of care and expected duration. Pain level reassessed. Patient is alert, oriented x 3, equal unlabored respirations, skin warm/dry/pink. 13:30 Reassessment: Patient appears in no apparent distress at this time. Patient and/or kj2 family updated on plan of care and expected duration. Pain level reassessed. Patient is alert, oriented x 3, equal unlabored respirations, skin warm/dry/pink. 15:41 Reassessment: Patient appears in no apparent distress at this time. Patient and/or kj2 family updated on plan of care and expected duration. Pain level reassessed. Patient is alert, oriented x 3, equal unlabored respirations, skin warm/dry/pink. rechecked blood [id number]. Novilin previously given per sliding scale. Vital Signs: 04/20 17:22 BP 108 / 91; Pulse 108; Resp 19; Temp 97.7(TE); Pulse Ox 91% on R/A; Weight 58.97 kg; cm10 Height 5 ft. 2 in. ; Pain 10/10; 20:00 BP 121 / 67; Pulse 100; Resp 19; Pulse Ox 99% on R/A; me1 21:00 BP 115 / 63; Pulse 95; Resp 18; Pulse Ox 97% on R/A; me1 22:00 BP 111 / 72; Pulse 96; Resp 17; Pulse Ox 96% on 3 lpm NC; me1 23:00 BP 125 / 73; Pulse 103; Resp 19; Pulse Ox 97% on 3 lpm NC; me1 04/21 12:00 BP 112 / 70; Pulse 88; Resp 18; Pulse Ox 96% on R/A; kj2 13:30 BP 118 / 72; Pulse 80; Resp 20; Pulse Ox 100% on R/A; kj2 15:42 BP 120 / 73; Pulse 88; Resp 18; Pulse Ox 96% on 2 lpm NC; 2 04/20 17:22 Body Mass Index 23.78 (58.97 kg, 157.48 cm) cm10 04/20 17:22 Pain Scale: Adult cm10 04/20 22:00 wears o2 at home to sleep. me1 ED Course: 17:05 Patient arrived in ED. sj2 17:05 [facility] kb 17:06 Suresh Ernandez DO is Attending Physician. kb 17:23 Triage completed. cm10 17:23 Arm band placed on right wrist. Patient placed in an exam room, on a stretcher. cm10 17:30 Reny Morgan, RN is Primary Nurse. me1 17:45 Patient has correct armband on for positive identification. Bed in low position. Call me1 light in reach. Side rails up X 1. Provided Education on: POC. Verbalized understanding.. Client placed on continuous cardiac and pulse oximetry monitoring. NIBP monitoring applied. clinical research monitor on. Pulse ox on. NIBP on. Warm blanket given. 17:45 No provider procedures requiring assistance completed. me1 18:00 Initial lab(s) drawn, by me, sent to lab. First set of blood cultures drawn by me. iw Missed attempt(s): 22 gauge in right antecubital area. Bleeding controlled, band aid applied, catheter tip intact. 18:04 Chest Single View XRAY In Process Unspecified. EDMS 18:52 Braxton Max MD is Hospitalizing Provider. kb 19:12 Inserted saline lock: 22 gauge in right antecubital area, using aseptic technique. me1 22:01 glucometer results - FOR PT WITH NO ID Sent. me1 22:07 IV discontinued, intact, bleeding controlled, No redness/swelling at site. Pressure me1 dressing applied. 22:43 BMP Sent. me1 04/21 07:06 Primary Nurse role handed off by Reny Morgan, VELMA bd 12:24 Soledad Figueroa, VELMA is Primary Nurse. kj2 Administered Medications: 04/20 18:49 Drug: MethylPrednisoLONE IVP 125 mg IVP once Route: IVP; Site: left antecubital; me1 18:55 Follow up: Response: No adverse reaction me1 18:49 Drug: Ondansetron IVP 4 mg IVP once; over 2 minutes Route: IVP; Site: left antecubital; me1 18:55 Follow up: Response: No adverse reaction; Nausea is decreased me1 18:49 Drug: NS 0.9% IV 500 ml 500 ml IV at 1 bolus once; to be given as a bolus over 30 me1 minutes Volume: 500 ml; Route: IV; Rate: 1 bolus; Site: left antecubital; 19:45 Follow up: IV Status: Completed infusion; IV Intake: 500ml me1 18:50 Drug: Albuterol Inhalation 2.5 mg Inhalation once Route: Inhalation; me1 18:55 Follow up: Response: No adverse reaction; Wheezing diminished me1 18:50 Drug: Ipratropium Inhalation Aerosol 0.5 mg Inhalation once Route: Inhalation; me1 18:55 Follow up: Response: No adverse reaction; Wheezing diminished me1 19:15 Drug: Zithromax IVPB 500 mg IVPB once over 1 hrs; mix in 250 mL NS Route: IVPB; Infused me1 Over: 1 hrs; Site: right antecubital; 20:28 Follow up: Response: No adverse reaction; IV Status: Completed infusion; IV Intake: me1 250ml 19:45 Drug: NS 0.9% IV 1000 ml IV at 1000 ml once; to be given as a bolus over 60 minutes me1 Route: IV; Rate: 1000 ml; Site: right antecubital; 20:45 Follow up: Response: No adverse reaction; IV Status: Completed infusion; IV Intake: me1 1000ml 20:30 Drug: Insulin Drip - (Insulin Regular Human IVP 100 units, NS 0.9% IV 100 ml) IV at me1 calculated rate continuous; Standard concentration 1unit/ml; Dose for DKA is 0.1 units/kg/hr {Co-Signature: marion (Inge Abreu RN).} Route: IV; Rate: 6 units/hr; Site: right antecubital; 21:27 Follow up: Rate change 7 units/hr; for blood sugar of 312 me1 22:43 Follow up: Rate change 3.5 units/hr; D5 NS started at 125 ml/hr per protocol for blood me1 sugar of 253 04/21 00:36 Follow up: Rate change 4.5 units/hr cp4 03:22 Follow up: Rate change 2.3 units/hr cp4 05:27 Follow up: IV Status: Completed infusion dd2 Medication: 04/20 17:45 VIS not applicable for this client. me1 Intake: 19:45 IV: 500ml; Total: 500ml. me1 20:28 IV: 250ml; Total: 750ml. me1 20:45 IV: 1000ml; Total: 1750ml. me1 Outcome: 18:52 Decision to Hospitalize by Provider. kb 23:34 Admitted to ER Hold. Please see [facility] for further documentation. me1 23:34 Condition: stable 23:34 Instructed on the need for admit, 04/21 16:20 Patient left the ED. kj2 Signatures: Dispatcher [employer] EDLeonor Diehl, JESICAC COPY CHASER-CkTangela Trejo Irene, RN RN iw Meryl Polanco RN RN cm10 Reny Morgan RN RN me1 Kandice Banks cp4 Soledad Figueroa RN RN kj2 SUDHEER GALINDO RN RN dd2 Caitlin Barraza 2 Inge Abreu RN ha1 Corrections: (The following items were deleted from the chart) 04/20 22:02 17:22 Chief complaint: Patient states: Cough, body aches, congestion, fatigue, fever, me1 and nausea, vomiting and diarrhea onset 3 days ago. cm10 23:33 21:00 BP 111 / 72; Pulse 96bpm; Resp 17bpm; Pulse Ox 96% 3 lpm Nasal Cannula; wears o2 me1 at home to sleep.; me1
[2024-04-20] MEDS ORDERED: NA CHLORIDE 0.9% 250 ML ONE (19:08)
[2024-04-20] MEDS ORDERED: AZITHROMYCIN 500 MG INJ IVPB ONE (19:08)
--- NOTE | 2024-04-20 19:21 | P.HP ---
Certification for Inpatient Patient admitted to: Inpatient With expected LOS: >2 Midnights Practitioner: I am a practitioner with admitting privileges, knowledge of patient current condition, hospital course, and medical plan of care. Services: Services provided to patient in accordance with Admission requirements found in Title 42 Section 412.3 of the Code of Federal Regulations Patient History Date of Service: 04/21/24 Reason for admission: DKA History of Present Illness: 63 yrs old Female with past medical history of Atrial fibrillation, Congestive heart failure, COPD, diabetes mellitus,Hypercholesterolemia; Hypertension; Myocardial infarction; S/p CABG came with flu like symptoms . Associated with fatigue and generalized weakness. Denies any chest pain associated with subjective fever and chills and body pain .. Associated with nausea vomiting. Cough is productive with mucoid expectoration . Patient was assessed in the ER and found to have elevated anion gap and was admitted for possible DKA. Allergies Penicillins Allergy (Verified 12/22/17 20:32) Itching/Hives/Rash Home medications list reviewed: Yes Home Medications: Aspirin [Aspirin EC 325 MG] 325 mg PO DAILY 12/22/17 Atorvastatin Calcium [Lipitor] 80 mg PO DAILY 12/22/17 Clopidogrel Bisulfate [Plavix*] 75 mg PO DAILY 12/22/17 Fluoxetine HCl [Prozac*] 20 mg PO TID 12/22/17 Levalbuterol Tartrate [Xopenex Hfa] 1 puff IN QID 12/22/17 Quetiapine [Seroquel*] 300 mg PO BEDTIME 12/22/17 carvediloL [Coreg*] 6.25 mg PO BID 12/22/17 lisinopriL [Prinivil*] 2.5 mg PO DAILY 12/22/17 - Past Medical/Surgical History Diabetic: No Past Medical History: Reviewed- Non-Contributory -: MA 2014 -: HTN -: COPD Past Surgical History: Reviewed- Non-Contributory -: triple bypass 2015 -: fusion in the neck - Family History Mother -: Heart disease Father -: Cancer Notes: colon Brother -: Heart disease, Diabetes, Liver disease - Social History Smoking Status: Former smoker Alcohol use: No CD- Drugs: No Caffeine use: Yes Review of Systems 10-point ROS is otherwise unremarkable Physical Examination - Vital Signs Temperature: 97.8 F Blood Pressure: 138/76 Pulse: 76 Respirations: 18 Pulse Ox (%): 94 - Physical Exam General: Alert, Oriented x2, Mild distress HEENT: Atraumatic, Normocephalic Neck: Supple Respiratory: Diminished, Crackles/rales, Expiratory wheezes Cardiovascular: Regular rate/rhythm, Normal S1 S2 Capillary refill: <2 Seconds Gastrointestinal: Soft and benign, W/out hepatosplenomegaly Musculoskeletal: No clubbing Integumentary: No rashes Neurological: Normal speech, Other (Alert) Lymphatics: No axilla or inguinal lymphadenopathy - Studies Laboratory Data (last 24 hrs) 04/20/24 04/20/24 04/20/24 18:00 18:00 18:00 WBC 8.30 Hgb 17.5 H Hct 50.9 H Plt Count 130 L PT 11.5 INR 1.10 APTT 32.7 Sodium 127 L Potassium 4.2 BUN 30 H Creatinine 1.11 H Glucose 389 H Total Bilirubin 1.1 H AST 42 H ALT 27 Alkaline Phosphatase 167 H Microbiology Data (last 24 hrs): 04/20/24 17:51 Nasopharnyx Influenza Type A Antigen Screen - Final 04/20/24 17:51 Nasopharnyx Influenza Type B Antigen Screen - Final Assessment and Plan - Plan Diabetic ketoacidosis Admit to ICU Started on insulin drip ABG findings noted IV hydration in moderation Oxygen supplementation Will monitor BMP every 4 hours Accu-Chek q. hourly Anion gap monitored Electrolytes monitor and replace accordingly Pneumonia Started on IV antibiotic Monitor cultures Influenza A Started on Tamiflu Hypertension Antihypertensives titrated Continue home medications and titrate as needed Hyperlipidemia Continue statin CKD stage II Monitor renal parameters Electrolytes monitor and replace accordingly GI/DVT prophylaxis Advanced directive full code Discharge Plan: Home Plan to discharge in: 48 Hours - Advance Directives Does patient have a Living Will: No Does patient have a Durable POA for Healthcare: No - Code Status/Comfort Care Code Status: Full Code Time Spent Managing Pts Care (In Minutes): 48
[2024-04-20 19:38] LABS: Arterial Blood Carboxyhemoglob 1.4 % (0-1.5); Blood Gas Oxyhemoglobin 78.2 % (94-97); Blood Gas THB 16.5 g/dl (12-18)
[2024-04-20] MEDS ORDERED: NA CHLORIDE 0.9% 1,000 ML ONE (19:44)
[2024-04-20] MEDS ORDERED: INSULIN REGULAR (HUMAN) 100 UNIT/ML ONE ×2 (20:22→20:27)
[2024-04-20] MEDS ORDERED: NA CHLORIDE 0.9% 0 ML ONE (20:22)
[2024-04-20] MEDS ORDERED: NA CHLORIDE 0.9% 100 ML ONE (20:27)
[2024-04-20] MEDS ORDERED: D5 0.9 NS 1,000 ML IV ONE (20:40)
[2024-04-20] MEDS: FLUOXETINE 10 MG CAP PO SCH (21:00)
[2024-04-20] MEDS ORDERED: [UNRECOGNIZED DRUG - MIXTURE] IH PRN (21:00)
[2024-04-20] MEDS: QUETIAPINE 100MG TAB PO SCH (21:00)
[2024-04-20] MEDS: carvediloL 6.25 MG TAB PO SCH (21:00)
[2024-04-20] MEDS: OSELTAMIVIR 75 MG CAP PO SCH (21:34)
[2024-04-20 23:03] LABS: Anion Gap 15.7 mEq/L (5.0-15.0)
[2024-04-20 23:04] LABS: Potassium 4.7 mEq/L (3.5-5.1)
[2024-04-20 23:45] LABS: Specific Gravity 1.029 (1.005-1.030); Sqamous Epithelial <5 /HPF (None Seen); Urine Bacteria <20 /HPF (<20); Urine Bilirubin NEGATIVE (Negative); Urine Blood Trace (Negative); Urine Clarity Extremely Turbid (Clear); Urine Color Light-Yellow (Yellow); Urine Culture Reflex Order REFLEXED; Urine Glucose 4+ (Over) (Negative); Urine Ketones 3+ (Negative); Urine Microscopic Reflex YN ORDER UMIC; Urine Mucus Slight /HPF (None Seen); Urine Nitrite NEGATIVE (Negative); Urine Protein TRACE (Negative); Urine RBC 21-50 /HPF (None Seen); Urine Urobilinogen Normal (Normal); Urine WBC 20-50 /HPF (<5); Urine WBC Clump Rare /HPF (None Seen); Urine Yeast (Budding) Few /HPF (None Seen); Urine Yeast with Hyphae Trace /HPF (None Seen)
[2024-04-21] MEDS: OSELTAMIVIR 75 MG CAP PO ONE (01:30)
[2024-04-21] MEDS: carvediloL 6.25 MG TAB PO ONE (01:30)
[2024-04-21] MEDS: FLUOXETINE 10 MG CAP PO ONE (02:00)
[2024-04-21 06:23] LABS: Absolute Lymphocytes (CBC) 0.3 K/uL (0.7-4.9); Absolute Monocytes 0.4 K/uL (0.1-1.3); Absolute Neutrophil 3.6 K/uL (1.8-8.0); Albumin 2.5 g/dL (3.4-5.0); Albumin/Globulin Ratio 0.7 (1.1-1.8); Anion Gap 9.1 mEq/L (5.0-15.0); Basophils % 0.2 % (0-1.3); Bilirubin Total 0.4 mg/dL (0.2-1.0); Globulin 3.5 g/dL (2.3-3.5); Hematocrit 40.6 % (36.0-45.0); Lymphocytes % 6.4 % (15.3-44.8); MCH 28.6 pg (27.0-35.0); MCHC 34.5 g/dL (32.0-36.0); MCV 82.9 fL (80-100); MPV 8.5 fL (7.6-11.3); Monocytes % 8.9 % (3.3-12.3); Neutrophils % 84.5 % (41.7-73.7); Nucleated Red Blood Cells % 0.4 % (0-0); Platelets 94 thou/uL (152-406); Potassium 4.1 mEq/L (3.5-5.1); RBC Red Blood Cell Count 4.89 M/uL (3.86-4.86); Red Cell Distribution Width 15.5 % (12.1-15.2)
[2024-04-21] MEDS ORDERED: ALBUTEROL 2.5 MG/3 ML NEB SOL NEB PRN (07:30)
[2024-04-21 07:49] LABS: Blood Morphology Comment NOT SEEN (NOT SEEN); Platelet Estimate DECR; White Blood Cell Scan OK (OK)
[2024-04-21] MEDS ORDERED: CEFTRIAXONE 1000 MG/VIAL ONE (08:47)
[2024-04-21] MEDS ORDERED: ATORVASTATIN 40 MG TAB ONE (08:47)
[2024-04-21] MEDS ORDERED: AZITHROMYCIN 500 MG INJ IVPB ONE (08:47)
[2024-04-21] MEDS ORDERED: ENOXAPARIN 60 MG/0.6 ML SQ ONE (08:48)
[2024-04-21] MEDS ORDERED: carvediloL 6.25 MG TAB ONE (08:48)
[2024-04-21] MEDS ORDERED: OSELTAMIVIR 75 MG CAP PO ONE (08:48)
[2024-04-21] MEDS ORDERED: NA CHLORIDE 0.9% 250 ML ONE (08:49)
[2024-04-21] MEDS: AZITHROMYCIN IV 500 MG in NA CHLORIDE 0.9% 250 ML IVPB SCH (09:00)
[2024-04-21] MEDS: ENOXAPARIN 60 MG/0.6 ML SQ SCH (09:00)
[2024-04-21] MEDS: FLUOXETINE 20 MG CAP PO SCH (09:00)
[2024-04-21] MEDS: ATORVASTATIN 80 MG TAB PO SCH (09:00)
[2024-04-21] MEDS: OSELTAMIVIR 30 MG CAP PO SCH (09:00)
[2024-04-21] MEDS: CEFTRIAXONE 1,000 MG in NA CHLORIDE 0.9% 50 ML IVPB SCH (09:00)
[2024-04-21] MEDS ORDERED: ENOXAPARIN 40 MG/0.4 ML SQ SCH (09:00)
[2024-04-21] MEDS ORDERED: CLOPIDOGREL 75 MG TABLET PO SCH (09:00)
[2024-04-21] MEDS ORDERED: ASPIRIN EC 325 MG TABLET PO SCH (09:00)
[2024-04-21] MEDS ORDERED: ACETAMINOPHEN 325 MG TABLET ONE (12:15)
[2024-04-21] MEDS: ACETAMINOPHEN 325 MG TABLET PO PRN (12:18)
--- NOTE | 2024-04-21 13:24 | P.PN ---
Date of Service: 04/21/24 Subjective: feels like no significant improvement or worsening continues to feel very fatigued, +body aches ROS: 10 point ROS as noted above, otherwise negative Physical Exam: GEN: Alert, NAD CV: Regular rate and rhythm, no edema Pulm: Nonlabored respirations on 3L NC, +cough ABD: soft, nontender, nondistended Neuro: Normal speech, normal affect Problem List: Acute Influenza A DKA CKD2 Chronic CHF COPD, Chronic Hypertension Hyperlipidemia Hx CAD s/p CABG hx A-fib Acute Influenza A continue tamiflu for 5 days (04/21-04/25) CXR (04/20): Left basilar streaky opacities, stable. Atelectasis vs mild airspace disease continue empiric rocephin added to cover possible bacterial pneumonia Dr. Velasquez, pulm consulted wean oxygen as tolerated Follow blood/urine cultures DKA on admission, presents with cough, congestion, fatigue, body aches associated with nausea/vomiting/diarrhea for 3 days . +intermittent fever Found to be in DKA in ED. given IVF, IV steroids, nebs in ED anion gap closed 04/21 CKD2 continue to monitor renal function Monitor and replete electrolytes as needed Chronic CHF COPD, Chronic Hypertension Hyperlipidemia Hx CAD s/p CABG hx a-fib confirm home meds, restart as appropriate VTE: Lovenox Code: Full Dispo: home Pending improvement, off oxygen Time Spent Managing Pts Care (In Minutes): 55
[2024-04-21] MEDS ORDERED: D10W 125 ML IV PRN (13:39)
[2024-04-21] MEDS ORDERED: GLUCAGON 1 MG/VIAL IM PRN (13:39)
[2024-04-21] MEDS: INSULIN REGULAR (HUMAN) 100 UNIT/ML SQ SCH (13:58)
[2024-04-21] MEDS ORDERED: INSULIN REGULAR (HUMAN) 100 UNIT/ML ONE (14:13)
[2024-04-21] MEDS ORDERED: INSULIN REGULAR (HUMAN) 100 UNIT/ML SQ SCH (16:30)
[2024-04-21 17:13] VITALS: BMI 23.8
[2024-04-22 06:02] LABS: Hematocrit 40.5 % (36.0-45.0); Hemoglobin 13.9 g/dL (12.0-15.0); MCH 28.4 pg (27.0-35.0); MCHC 34.2 g/dL (32.0-36.0); MCV 83.1 fL (80-100); MPV 8.3 fL (7.6-11.3); Platelets 102 thou/uL (152-406); RBC Red Blood Cell Count 4.87 M/uL (3.86-4.86); Red Cell Distribution Width 15.8 % (12.1-15.2)
[2024-04-22 06:19] LABS: Anion Gap 8.9 mEq/L (5.0-15.0); Magnesium 2.1 mg/dL (1.6-2.4); Potassium 3.9 mEq/L (3.5-5.1)
[2024-04-22 06:23] LABS: Phosphorus 1.5 mg/dL (2.5-4.9)
[2024-04-22] MEDS: POTASS/SODIUM PHOSPHATE 1 PKT POWD.PACK PO SCH ×2 (09:26→22:52)
--- NOTE | 2024-04-22 12:08 | P.PN ---
Date of Service: 04/22/24 Subjective: states she is feeling better wanting to go home appears restless, and labored respirations at rest states she feels ~50% better still not much appetite states has home O2 as needed ROS: 10 point ROS as noted above, otherwise negative Physical Exam: GEN: Alert, NAD CV: Regular rate and rhythm, no edema Pulm: labored respirations at rest, +cough ABD: soft, nontender, nondistended Neuro: Normal speech, normal affect Problem List: Acute Influenza A DKA, resolved CKD2 Chronic CHF COPD, Chronic Hypertension Hyperlipidemia Hx CAD s/p CABG hx A-fib Acute Influenza A continue tamiflu for 5 days (04/21-04/25) CXR (04/20): Left basilar streaky opacities, stable. Atelectasis vs mild airspace disease continue empiric rocephin added to cover possible bacterial pneumonia Dr. Velasquez, pulm consulted wean oxygen as tolerated Blood cx (04/20): NGTD urine cx (04/20): prelim mixed aileen has home oxygen that she uses PRN (2.5L) DKA, resolved on admission, presents with cough, congestion, fatigue, body aches associated with nausea/vomiting/diarrhea for 3 days . +intermittent fever Found to be in DKA in ED. given IVF, IV steroids, nebs in ED anion gap closed 04/21 CKD2 continue to monitor renal function Monitor and replete electrolytes as needed Chronic CHF COPD, Chronic Hypertension Hyperlipidemia Hx CAD s/p CABG hx a-fib confirm home meds, restart as appropriate VTE: Lovenox Code: Full Dispo: home,~ 2 days Pending improvement, off oxygen Time Spent Managing Pts Care (In Minutes): 55
[2024-04-22] MEDS: ONDANSETRON 4 MG/2 ML VIAL IV PRN (14:10)
[2024-04-22] MEDS: OSELTAMIVIR 75 MG CAP PO SCH (21:00)
[2024-04-23 06:46] LABS: Anion Gap 8.4 mEq/L (5.0-15.0); Magnesium 1.9 mg/dL (1.6-2.4); Potassium 3.4 mEq/L (3.5-5.1)
[2024-04-23 06:55] LABS: Phosphorus 1.5 mg/dL (2.5-4.9)
--- NOTE | 2024-04-23 08:09 | P.CNS ---
Date of Consult: 04/23/24 Reason for Consult: COPD exacerbation Chief Complaint: Shortness of breath History of Present Illness: Patient is 63 years of age active smoker has been sick for about a week complaining of worsening dyspnea cough congestion with COPD exacerbation hypoxemia is doing much better Allergies Penicillins Allergy (Verified 12/22/17 20:32) Itching/Hives/Rash Home Medications: Aspirin [Aspirin EC 325 MG] 325 mg PO DAILY 12/22/17 Atorvastatin Calcium [Lipitor] 80 mg PO DAILY 12/22/17 Clopidogrel Bisulfate [Plavix*] 75 mg PO DAILY 12/22/17 Fluoxetine HCl [Prozac*] 20 mg PO TID 12/22/17 Levalbuterol Tartrate [Xopenex Hfa] 1 puff IN QID 12/22/17 Quetiapine [Seroquel*] 300 mg PO BEDTIME 12/22/17 carvediloL [Coreg*] 6.25 mg PO BID 12/22/17 lisinopriL [Prinivil*] 2.5 mg PO DAILY 12/22/17 - Past Medical/Surgical History Diabetic: No -: [place] 2014 -: HTN -: COPD -: triple bypass 2015 -: fusion in the neck - Family History Mother Medical History: Heart disease Father Medical History: Cancer Notes: colon Brother Medical History: Heart disease, Diabetes, Liver disease - Social History Smoking Status: Current every day smoker Alcohol use: No CD- Drugs: No Caffeine use: Yes Review of Systems 10-point ROS is otherwise unremarkable General: Weakness Respiratory: Cough, Shortness of Breath Physical Examination Temp Pulse Resp BP Pulse Ox 98 F 98 H 18 135/78 97 04/23/24 04:00 04/23/24 04:00 04/23/24 04:00 04/23/24 04:00 04/23/24 04:00 General: Alert, Oriented x3 Respiratory: Clear to auscultation bilaterally, Diminished Cardiovascular: No edema, Regular rate/rhythm, Normal S1 S2 Gastrointestinal: Normal bowel sounds, Soft and benign - Problems (1) COPD with acute exacerbation Onset Date: 12/23/17 Current Visit: No Status: Acute Plan: Patient is 63 years of age active smoker admitted with COPD exacerbation hy poxemia to is around 50 chest x-ray clear labs reviewed influenza A positive add steroids bronchodilators patient has home O2 consult to quit smoking will need a long-acting bronchodilator at home patient was hyperglycemic on admission discharge on long-acting bronchodilators and antibiotics
--- NOTE | 2024-04-23 09:37 | P.PN ---
Date of Service: 04/23/24 Subjective: breathing more comfortably today. On 3L NC 100.2 temp yesterday. Afebrile today cough improving minimal appetite ROS: 10 point ROS as noted above, otherwise negative Physical Exam: GEN: Alert, NAD CV: Regular rate and rhythm, no edema Pulm: labored respirations at rest, +cough ABD: soft, nontender, nondistended Neuro: Normal speech, normal affect Problem List: Acute Influenza A DKA, resolved CKD2 Chronic CHF COPD, Chronic Hypertension Hyperlipidemia Hx CAD s/p CABG hx A-fib Acute Influenza A continue tamiflu for 5 days (04/21-04/25) CXR (04/20): Left basilar streaky opacities, stable. Atelectasis vs mild airspace disease IV rocephin (04/21-04/22) deescalated to oral cefuroxime (04/23) Dulera inhaler added per pulm 04/23 Dr. Velasquez, pulm consulted wean oxygen as tolerated Blood cx (04/20): NGTD urine cx (04/20): Mixed aileen. has home oxygen that she uses PRN (2.5L) Respiratory status improving DKA, resolved on admission, presents with cough, congestion, fatigue, body aches associated with nausea/vomiting/diarrhea for 3 days . +intermittent fever Found to be in DKA in ED. given IVF, IV steroids, nebs in ED anion gap closed 04/21 CKD2 continue to monitor renal function Monitor and replete electrolytes as needed Chronic CHF COPD, Chronic Hypertension Hyperlipidemia Hx CAD s/p CABG hx a-fib confirm home meds, restart as appropriate VTE: Lovenox Code: Full Dispo: home,~ 1 day Pending improvement, appetite improves, afebrile > 24 hours Time Spent Managing Pts Care (In Minutes): 55
[2024-04-23] MEDS: POTASSIUM PHOS IN 0.9 % NACL 15 MMOL/250 ML BAG IV ONE (09:44)
[2024-04-23] MEDS: DULERA 200/5 (MOMETASONE/FORMOTEROL) INHALER IH SCH (09:44)
[2024-04-23] MEDS: CEFUROXIME 250 MG TAB PO SCH (09:46)
--- NOTE | 2024-04-23 12:00 | EKG ---
Test Date: 2024-04-20 Test Time: 22:16:43 Machine Ironer: MEASUREMENT RESULTS: Intervals: Rate: 102 CO: 130 QRSD: 148 QT: 416 QTc: 542 [place]: P: 78 CO: 130 QRS: 64 T: 69 INTERPRETIVE STATEMENTS: Sinus tachycardia Right bundle branch block Abnormal ECG Compared to ECG 04/15/2024 18:58:50 Sinus rhythm no longer present Electronically Signed On 04-23-24 11:58:32 INVESTMENT TRADER by Jabari Horton
[2024-04-23] MEDS: GLUCERNA SHAKE 237 ML CAN PO SCH (21:00)
[2024-04-23] MEDS ORDERED: POTASS/SODIUM PHOSPHATE 1 PKT POWD.PACK PO SCH (23:00)
[2024-04-24 08:21] LABS: Hematocrit 36.3 % (36.0-45.0); Hemoglobin 12.6 g/dL (12.0-15.0); MCH 28.6 pg (27.0-35.0); MCHC 34.6 g/dL (32.0-36.0); MCV 82.6 fL (80-100); MPV 8.1 fL (7.6-11.3); Platelets 114 thou/uL (152-406); Red Cell Distribution Width 15.8 % (12.1-15.2)
[2024-04-24 08:34] LABS: Albumin 1.9 g/dL (3.4-5.0); Albumin/Globulin Ratio 0.6 (1.1-1.8); Anion Gap 9.5 mEq/L (5.0-15.0); Bilirubin Total 0.7 mg/dL (0.2-1.0); Globulin 3.2 g/dL (2.3-3.5); Magnesium 1.9 mg/dL (1.6-2.4); Phosphorus 1.8 mg/dL (2.5-4.9); Potassium 3.5 mEq/L (3.5-5.1); Protein, Total 5.1 g/dL (6.4-8.2)
[2024-04-24] MEDS: POTASSIUM 25 MEQ EFFERV TAB PO ONE (10:14)
[2024-04-24] MEDS: POTASS/SODIUM PHOSPHATE 1 PKT POWD.PACK PO SCH (10:15)
--- NOTE | 2024-04-24 11:38 | P.PN ---
Date of Service: 04/24/24 Subjective: increased to 4L NC yesterday afternoon desats to 70s when she takes oxygen off. heart rate improved, in 80s cough slowly improving afebrile not eating much at all urine dark ROS: 10 point ROS as noted above, otherwise negative Physical Exam: GEN: Alert, NAD CV: Regular rate and rhythm, no edema Pulm: labored respirations at rest, +cough ABD: soft, nontender, nondistended Neuro: Normal speech, normal affect Problem List: Acute Influenza A DKA, resolved CKD2 Chronic CHF COPD, Chronic Hypertension Hyperlipidemia Hx CAD s/p CABG hx A-fib Acute Influenza A continue tamiflu for 5 days (04/21-04/25) CXR (04/20): Left basilar streaky opacities, stable. Atelectasis vs mild airspace disease IV rocephin (04/21-04/22) deescalated to oral cefuroxime (04/23) Dulera inhaler added per pulm 04/23 Dr. Velasquez, pul consulted wean oxygen as tolerated Blood cx (04/20): NGTD urine cx (04/20): Mixed aileen. has home oxygen that she uses PRN (2.5L) Respiratory status improving not eating much, encouraged josy chance DKA, resolved on admission, presents with cough, congestion, fatigue, body aches associated with nausea/vomiting/diarrhea for 3 days . +intermittent fever Found to be in DKA in ED. given IVF, IV steroids, nebs in ED anion gap closed 04/21 CKD2 continue to monitor renal function Monitor and replete electrolytes as needed Chronic CHF COPD, Chronic Hypertension Hyperlipidemia Hx CAD s/p CABG hx a-fib confirm home meds, restart as appropriate VTE: Lovenox Code: Full Dispo: home,~2-3 days Pending improvement, appetite improves, afebrile > 24 hours Time Spent Managing Pts Care (In Minutes): 55
[2024-04-25 06:45] LABS: Albumin 1.9 g/dL (3.4-5.0); Anion Gap 10.1 mEq/L (5.0-15.0); Magnesium 1.9 mg/dL (1.6-2.4); Phosphorus 1.8 mg/dL (2.5-4.9); Potassium 3.1 mEq/L (3.5-5.1)
[2024-04-25] MEDS: POTASSIUM PHOS IN 0.9 % NACL 15 MMOL/250 ML BAG IV ONE (08:42)
[2024-04-25] MEDS: POTASSIUM CL SA 10 MEQ TAB PO ONE (08:42)
[2024-04-25 08:44] VITALS: BP 149/91
[2024-04-25 09:09] VITALS: O2SAT 92
--- NOTE | 2024-04-25 10:06 | P.PN ---
Date of Service: 04/25/24 Subjective: breasting slightly easier today. Down to 2L NC minimal appetite; ~same as yesterday reports multiple loose stools overnight/this morning. ROS: 10 point ROS as noted above, otherwise negative Physical Exam: GEN: Alert, NAD CV: Regular rate and rhythm, no edema Pulm: labored respirations at rest, +cough ABD: soft, nontender, nondistended Neuro: Normal speech, normal affect Problem List: Acute Influenza A DKA, resolved Hypophosphatemia CKD2 Chronic CHF COPD, Chronic Hypertension Hyperlipidemia Hx CAD s/p CABG hx A-fib Acute Influenza A continue tamiflu for 5 days (04/21-04/25) CXR (04/20): Left basilar streaky opacities, stable. Atelectasis vs mild airspace disease IV rocephin (04/21-04/22) deescalated to oral cefuroxime (04/23) Dulera inhaler added per pulm 04/23 Dr. Velasquez, pulm consulted wean oxygen as tolerated Blood cx (04/20): NGTD urine cx (04/20): Mixed aileen. has home oxygen that she uses PRN (2.5L) Respiratory status improving not eating much, encouraged glucerna shakes DKA, resolved on admission, presents with cough, congestion, fatigue, body aches associated with nausea/vomiting/diarrhea for 3 days . +intermittent fever Found to be in DKA in ED. given IVF, IV steroids, nebs in ED anion gap closed 04/21 CKD2 continue to monitor renal function Monitor and replete electrolytes as needed Chronic CHF COPD, Chronic Hypertension Hyperlipidemia Hx CAD s/p CABG hx a-fib confirm home meds, restart as appropriate VTE: Lovenox Code: Full Dispo: home,~2-3 days Pending improvement, appetite improves, afebrile > 24 hours Time Spent Managing Pts Care (In Minutes): 55
[2024-04-25 10:14] VITALS: TEMP 97.9
--- NOTE | 2024-04-25 11:32 | P.DS ---
Admission Date: 04/20/24 Discharge Date: 04/25/24 Disposition: AMA-LEFT AGAINST MEDICAL ADVIC Discharge Condition: FAIR Reason for Admission: Shortness of breath Consultations: Pulmonology - Dr. Velasquez Brief History of Present Illness: 63 yo F, PMH: Atrial fibrillation, Congestive heart failure, COPD, diabetes mellitus,Hypercholesterolemia; Hypertension; Myocardial infarction; S/p CABG Patient came with flu like symptoms. Associated with fatigue and generalized weakness. Denies any chest pain associated with subjective fever and chills and body pain. Associated with nausea vomiting. Cough is productive with mucoid expectoration . Patient was assessed in the ER and found to have elevated anion gap and was admitted for possible DKA. Hospital Course: Problem List: Acute Influenza A DKA, resolved Hypophosphatemia CKD2 Chronic CHF COPD, Chronic Hypertension Hyperlipidemia Hx CAD s/p CABG hx A-fib Physician discharge instructions: Patient presented with flu-like symptoms, generalized weakness, fever/chills secondary to acute influenza A. She tested positive for the flu in the ED. Chest xray noted stable left basilar streaky opacities, atelectasis vs mild airspace disease. Patient was started on tamiflu, given steroids, duonebs and had some improvement of her symptoms. Patient completed 5 days of tamiflu (04/21-04/25). She was also started on empiric antibiotics to cover possible pneumonia/UTI. Blood cultures have been without growth since 04/20. Urine culture grew mixed aileen. She reported feeling improvement however still continued to desat to 70-80s when taking off her oxygen, and continued with very minimal appetite. 04/25 Patient stated she needed to go home. Discussed at length with patient that would she benefit from staying to further improve her respiratory status, appetite prior to discharge and that it would be against medical advice to leave at this time and risk of worsening or even if she leaves. She stated she couldn't stay any longer and has oxygen at home to use if needed. She said she felt better and didn't want to stay any longer. Patient verbalized understanding, however still wanted to go home. Patient signed herself out against medical advice on 04/25. Advised close follow up with PCP/Pulm in the near future for further management. She reported having home oxygen setup at home already that she uses at home as needed (2.5L). She was also found to be in mild DKA on admission. DKA quickly resolved with IV hydration. Anion gap quickly resolved within 24 hours. Physical Exam: GEN: Alert, NAD CV: Regular rate and rhythm, no edema Pulm: mildly labored respirations at rest on 2L NC, +cough ABD: soft, nontender, nondistended Neuro: Normal speech, normal affect Vital Signs/Physical Exam: Temp Pulse Resp BP Pulse Ox 97.9 F 90 16 149/91 H 85 L 04/25/24 08:00 04/25/24 08:43 04/25/24 08:00 04/25/24 08:43 04/25/24 08:00 Laboratory Data at Discharge: WBC 5.30 thou/uL (4.3-10.9) 04/24/24 08:06 Hgb 12.6 g/dL (12.0-15.0) 04/24/24 08:06 Hct 36.3 % (36.0-45.0) 04/24/24 08:06 Plt Count 114 thou/uL (152-406) L 04/24/24 08:06 PT 11.5 SECONDS (9.4-12.5) 04/20/24 18:00 INR 1.10 04/20/24 18:00 APTT 32.7 SECONDS (24.3-36.9) 04/20/24 18:00 Sodium 136 mEq/L (136-145) 04/25/24 05:57 Potassium 3.1 mEq/L (3.5-5.1) L 04/25/24 05:57 BUN 11 mg/dL (7-18) 04/25/24 05:57 Creatinine 0.41 mg/dL (0.55-1.02) L 04/25/24 05:57 Glucose 169 mg/dL (74-106) H 04/25/24 05:57 Phosphorus 1.8 mg/dL (2.5-4.9) L 04/25/24 05:57 Magnesium 1.9 mg/dL (1.6-2.4) 04/25/24 05:57 Total Bilirubin 0.7 mg/dL (0.2-1.0) 04/24/24 08:06 AST 54 U/L (15-37) H 04/24/24 08:06 ALT 16 U/L (13-56) 04/24/24 08:06 Alkaline Phosphatase 91 U/L (45-117) 04/24/24 08:06 Home Medications: Aspirin [Aspirin EC 325 MG] 325 mg PO DAILY 12/22/17 Atorvastatin Calcium [Lipitor] 80 mg PO DAILY 12/22/17 Clopidogrel Bisulfate [Plavix*] 75 mg PO DAILY 12/22/17 Fluoxetine HCl [Prozac*] 20 mg PO TID 12/22/17 Levalbuterol Tartrate [Xopenex Hfa] 1 puff IN QID 12/22/17 Quetiapine [Seroquel*] 300 mg PO BEDTIME 12/22/17 carvediloL [Coreg*] 6.25 mg PO BID 12/22/17 lisinopriL [Prinivil*] 2.5 mg PO DAILY 12/22/17 Physician Discharge Instructions: Physician discharge instructions: Patient presented with flu-like symptoms, generalized weakness, fever/chills secondary to acute influenza A. She tested positive for the flu in the ED. Chest xray noted stable left basilar streaky opacities, atelectasis vs mild airspace disease. Patient was started on tamiflu, given steroids, duonebs and had some improvement of her symptoms. Patient completed 5 days of tamiflu (04/21-04/25). She reported feeling improvement however still continued to desat to 70-80s when taking off her oxygen, and continued with very minimal appetite. She was also started on empiric antibiotics to cover possible pneumonia/UTI. Blood cultures have been without growth since 04/20. Urine culture grew mixed aileen. 04/25 Patient stated she needed to go home. Discussed at length with patient that would she benefit from staying to further improve her respiratory status, appetite prior to discharge and that it would be against medical advice to leave at this time. Patient verbalized understanding, however still wanted to go home. Patient signed herself out against medical advice on 04/25. Advised close follow up with PCP/Pulm in the near future for further management. She reported having home oxygen setup at home already that she uses at home as needed (2.5L). She was also found to be in mild DKA on admission. DKA quickly resolved with IV hydration. Anion gap quickly resolved within 24 hours. Followup: Tj Velasquez MD [ACTIVE - CAN ADMIT] - NONE,NONE [Primary Care Provider] - Time spent managing pt's care (in minutes): 45
== END 2024-04-25 10:59 | disposition left against medical advice (07) | DRG 637 ==
LOC: ER 16:52 → ERHOLD 19:21 → 4TH 04-21 14:15
PROVIDERS: ADMIT Family Medicine; ATTEND Hospitalist
PROC: 4A033R1 Measurement of Arterial Saturation, Peripheral, Percutaneous Approach (ICD-10-PCS; principal; 2024-04-20)
DX: E11.10 Type 2 diabetes mellitus with ketoacidosis without coma (principal); J09.X1 Influenza due to identified novel influenza A virus with pneumonia; J44.0 Chronic obstructive pulmonary disease with (acute) lower respiratory infection; I13.0 Hypertensive heart and chronic kidney disease with heart failure and stage 1 through stage 4 chronic kidney disease, or unspecified chronic kidney disease; J44.1 Chronic obstructive pulmonary disease with (acute) exacerbation; N39.0 Urinary tract infection, site not specified; I50.9 Heart failure, unspecified; N18.2 Chronic kidney disease, stage 2 (mild); E11.22 Type 2 diabetes mellitus with diabetic chronic kidney disease; I48.91 Unspecified atrial fibrillation; E86.0 Dehydration; E83.39 Other disorders of phosphorus metabolism; E78.00 Pure hypercholesterolemia, unspecified; F17.210 Nicotine dependence, cigarettes, uncomplicated; I25.2 Old myocardial infarction; Z88.0 Allergy status to penicillin; Z95.1 Presence of aortocoronary bypass graft; Z79.82 Long term (current) use of aspirin; Z79.02 Long term (current) use of antithrombotics/antiplatelets; Z79.899 Other long term (current) drug therapy; Z87.891 Personal history of nicotine dependence; Z53.29 Procedure and treatment not carried out because of patient's decision for other reasons; Z11.52 Encounter for screening for COVID-19
CPT/HCPCS: 36415; 36600; 71045; 80048; 80053; 80069; 81001; 82805; 82947; 83605; 83735; 83880; 84100; 85025; 85027; 85610; 85730; 87040; 87086; 87088; 87804; 87811; 93005; 96365; 96366; 96367; 96375; 99285; J0696; J1650; J2405; J2919; J3535; J7030; J7040; J7042; J7050; J7613; J7644

== ENCOUNTER 2024-04-25 13:17 | Inpatient (IN) | payer OTHER ==
[2024-04-25] MEDS ORDERED: AZITHROMYCIN 500 MG INJ IVPB ONE (14:08)
[2024-04-25] MEDS ORDERED: METHYLPREDNISOLONE 125 MG INJ ONE (14:08)
[2024-04-25] MEDS ORDERED: IPRATROPIUM BROM 0.5MG/2.5ML ONE (14:08)
[2024-04-25] MEDS ORDERED: CEFTRIAXONE 1000 MG/VIAL ONE (14:08)
[2024-04-25] MEDS ORDERED: LEVALBUTEROL 1.25 MG/3 ML NEB ONE (14:08)
[2024-04-25] MEDS ORDERED: NA CHLORIDE 0.9% 1,000 ML ONE (14:09)
[2024-04-25] MEDS ORDERED: FAMOTIDINE 20 MG/2 ML VIAL IV ONE (14:09)
[2024-04-25] MEDS ORDERED: NA CHLORIDE 0.9% 250 ML ONE (14:09)
--- NOTE | 2024-04-25 15:16 | EDPHYS ---
Physician Documentation [facility] Name: Olena Orourke Age: 63 yrs Sex: Female : 1960 Arrival Date: 04/25/2024 Time: 13:17 Bed 3 Private MD: ED Physician Krishna Marques HPI: 04/25 15:05 This 63 yrs old Female presents to ER via Wheelchair with complaints of Flu yves Symptoms. 15:05 The patient has shortness of breath at rest, with light activity. Onset: The yves symptoms/episode began/occurred 5 day(s) ago. Duration: The symptoms are continuous, and are steadily getting worse. The patient's shortness of breath is aggravated by coughing, exertion, light activity. The patient or guardian reports airway noise, cough, difficulty breathing, flu symptoms. Modifying factors: The symptoms are alleviated by elevating head, remaining still, rest, the symptoms are aggravated by activity. hx copd , left hospital ama. Associated signs and symptoms: Pertinent positives: non-productive cough, fever. Severity of symptoms: At their worst the symptoms were moderate in the emergency department the symptoms are unchanged. Associated signs and symptoms: Pertinent positives: rhinorrhea. Historical: - Allergies: 13:47 PENICILLINS; bp - PMHx: 13:47 Atrial fibrillation; diabetes mellitus; Congestive heart failure; COPD; bp Hypercholesterolemia; Myocardial infarction; Hypertension; - PSHx: 13:47 Coronary artery bypass graft; bp - Immunization history:: Adult Immunizations up to date. - Infectious Disease History:: Denies. - Social history:: Smoking status: Patient reports the use of cigarette tobacco products, unknown amount. - Family history:: not pertinent. ROS: 15:05 Constitutional: Negative for fever, chills, and weight loss, Eyes: Negative for injury, yves pain, redness, and discharge, ENT: Negative for injury, pain, and discharge, Neck: Negative for injury, pain, and swelling, Abdomen/GI: Negative for abdominal pain, nausea, vomiting, diarrhea, and constipation, Back: Negative for injury and pain, : Negative for injury, bleeding, discharge, and swelling, MS/Extremity: Negative for injury and deformity, Skin: Negative for injury, rash, and discoloration, Neuro: Negative for headache, weakness, numbness, tingling, and seizure, Psych: Negative for depression, anxiety, suicide ideation, homicidal ideation, and hallucinations, Allergy/Immunology: Negative for hives, rash, and allergies, Endocrine: Negative for neck swelling, polydipsia, polyuria, polyphagia, and marked weight changes, Hematologic/Lymphatic: Negative for swollen nodes, abnormal bleeding, and unusual bruising, 15:05 Cardiovascular: Positive for palpitations, 15:05 Respiratory: Positive for cough, shortness of breath, wheezing, Exam: 15:05 Constitutional: This is a well developed, well nourished patient who is awake, alert, yves and in no acute distress. Head/Face: Normocephalic, atraumatic. Eyes: Pupils equal round and reactive to light, extra-ocular motions intact. Lids and lashes normal. Conjunctiva and sclera are non-icteric and not injected. Cornea within normal limits. Periorbital areas with no swelling, redness, or edema. ENT: Nares patent. No nasal discharge, no septal abnormalities noted. Tympanic membranes are normal and external auditory canals are clear. Oropharynx with no redness, swelling, or masses, exudates, or evidence of obstruction, uvula midline. Mucous membranes moist. Neck: Trachea midline, no thyromegaly or masses palpated, and no cervical lymphadenopathy. Supple, full range of motion without nuchal rigidity, or vertebral point tenderness. No Meningismus. Chest/axilla: Normal chest wall appearance and motion. Nontender with no deformity. No lesions are appreciated. Cardiovascular: Regular rate and rhythm with a normal S1 and S2. No gallops, murmurs, or rubs. Normal PMI, no JVD. No pulse deficits. Abdomen/GI: Soft, non-tender, with normal bowel sounds. No distension or tympany. No guarding or rebound. No evidence of tenderness throughout. Back: No spinal tenderness. No costovertebral tenderness. Full range of motion. Skin: Warm, dry with normal turgor. Normal color with no rashes, no lesions, and no evidence of cellulitis. MS/ Extremity: Pulses equal, no cyanosis. Neurovascular intact. Full, normal range of motion., bilateral aka Neuro: Awake and alert, GCS 15, oriented to person, place, time, and situation. Cranial nerves II-XII grossly intact. Motor strength 5/5 in all extremities. Sensory grossly intact. Cerebellar exam normal. Normal gait. Psych: Awake, alert, with orientation to person, place and time. Behavior, mood, and affect are within normal limits. 15:05 ECG was reviewed by the Attending Physician. 15:05 Respiratory: mild respiratory distress is noted, Respirations: labored breathing, that is moderate, Breath sounds: bronchial sounds, decreased breath sounds, rhonchi, stridor, is not appreciated, wheezing: inspiratory expiratory Respiratory rate: 102 15:15 Musculoskeletal/extremity: DVT Exam: No signs of deep vein thrombosis. no pain, no yves tenderness, negative Homans' sign noted on exam, no appreciated bluish discoloration, no erythema, no increased warmth, Vital Signs: 13:45 BP 191 / 102; Pulse 98; Resp 26; Pulse Ox 85% on 5 lpm NC; ld1 13:46 BP 152 / 95; Pulse 102; Resp 24; Temp 97.5; Pulse Ox 66% on R/A; bp 13:59 Weight 59 kg; ko1 14:33 BP 150 / 80; Pulse 94; Resp 16; Pulse Ox 90% on 6 lpm NC; ld1 15:00 BP 177 / 96; Pulse 94; Resp 17; Pulse Ox 91% on 6 lpm NC; ld1 15:45 BP 161 / 99; Pulse 98; Resp 20; Pulse Ox 92% on 6 lpm NC; ld1 16:22 BP 163 / 94; Pulse 93; Resp 16; Pulse Ox 92% on 6 lpm NC; ld1 Procedures: 15:18 Peripheral line: by aseptic technique a peripheral line was placed in the right [facility] external jugular vein. MDM: 13:38 Medical Screening Exam initiated [facility] 15:10 Differential diagnosis: Anemia Anxiety Reaction asthma, Bronchitis CHF exacerbation, yves Chronic Obstructive Pulmonary Disease obstructed airway, tracheal injury, bronchitis, flu, URI, Myocardial Infarction pneumonia, Pneumothorax Psychogenic pulmonary edema, Pulmonary Embolism reactive airway disease, Sepsis Unstable Angina. Antibiotic administration: Rocephin and Zithromax given. Differential Diagnosis altered mental status, sepsis, flu. Immunization status: Pneumococcal vaccine: within last 5 years. Influenza vaccine: within last 5 years. Data reviewed: vital signs, nurses notes, EMS record, lab test result(s), EKG, radiologic studies, plain films. Consideration of Admission/Observation Patient was admitted/placed on observation. Escalation of care including admission/observation considered. I considered the following discharge prescriptions or medication management in the emergency department Medications were administered in the Emergency Department. See MAR. Independent interpretation of the following test(s) in the Emergency Department EKG: See my EKG interpretation above. Test considered but Not performed: CT: no ct chest. Care significantly affected by the following chronic conditions: Diabetes, Hypertension, Congestive Heart Failure, Chronic Obstructive Pulmonary Disease, atrial fib. Counseling: I had a detailed discussion with the patient and/or guardian regarding the historical points, exam findings, and any diagnostic results supporting the discharge/admit diagnosis, lab results, radiology results, the need for further work-up and treatment in the hospital. 04/25 13:40 Order name: SARS RAPID [facility] 04/25 13:40 Order name: Flu 04/25 13:58 Order name: Basic Metabolic Panel; Complete Time: 16:47 04/25 13:58 Order name: CBC with Diff; Complete Time: 15:44 04/25 13:58 Order name: LFT's; Complete Time: 16:47 04/25 13:58 Order name: Magnesium; Complete Time: 16:47 04/25 13:58 Order name: NT PRO-BNP; Complete Time: 16:47 04/25 13:58 Order name: PT-INR; Complete Time: 15:44 04/25 13:58 Order name: Troponin HS; Complete Time: 16:47 04/25 13:58 Order name: Blood Culture Adult (2) 04/25 13:58 Order name: Lactate w/ 2H reflex if indic.; Complete Time: 16:47 04/25 13:58 Order name: XRAY Chest (1 view); Complete Time: 15:44 04/25 13:58 Order name: Cardiac monitoring; Complete Time: 14:15 04/25 13:58 Order name: EKG - Nurse/Tech; Complete Time: 14:15 04/25 13:58 Order name: IV Saline Lock; Complete Time: 15:24 04/25 13:58 Order name: Labs collected and sent; Complete Time: 15:24 04/25 13:58 Order name: O2 Per Protocol; Complete Time: 14:14 04/25 13:58 Order name: O2 Sat Monitoring; Complete Time: 14:14 [facility] EC:05 Rate is 79 beats/min. Rhythm is regular. QRS [place] is Normal. AR interval is normal. QRS yves interval is normal. QT interval is normal. No Q waves. T waves are Normal. No ST changes noted. Clinical impression: NSR w/ Non-specific ST/T Changes and No evidence of ischemia. Reviewed by me. Administered Medications: 13:59 CANCELLED (Duplicate Order): [id number] mg PO once yves 14:19 Drug: Levalbuterol Inhalation 3.75 mg Inhalation once Route: Inhalation; ko1 14:35 Follow up: Response: No adverse reaction ko1 14:19 Drug: Ipratropium Inhalation Aerosol 0.5 mg Inhalation once Route: Inhalation; ko1 14:35 Follow up: Response: No adverse reaction ko1 14:41 Drug: NS 0.9% IV (30 ml/kg) 30 ml/kg IV at bolus once; Sepsis Protocol; to be given as ko1 a bolus over 90 minutes Route: IV; Rate: bolus; Site: left hand; 16:05 Follow up: Response: No adverse reaction; IV Status: Completed infusion; IV Intake: ko1 1000ml 14:41 Drug: Famotidine IVP 20 mg IVP once; dilute with 10 mL 0.9% NaCl; give over 2 minutes ko1 Route: IVP; Site: left hand; 14:56 Follow up: Response: No adverse reaction ko1 14:42 Drug: MethylPrednisoLONE IVP 125 mg IVP once Route: IVP; Site: left hand; ko1 14:57 Follow up: Response: No adverse reaction ko1 14:43 Drug: Rocephin IV 1 grams IV at per protocol once; Given slow IV push per pharmacy ko1 instructions Route: IV; Rate: per protocol; Site: left hand; 15:15 Follow up: Response: No adverse reaction; IV Status: Completed infusion; IV Intake: [id number] 14:43 Drug: Zithromax IVPB 500 mg IVPB once over 1 hrs; mix in 250 mL NS Route: IVPB; Infused ko1 Over: 1 hrs; Site: left hand; 16:26 Follow up: Response: No adverse reaction; IV Status: Completed infusion; IV Intake: ld1 500ml 16:20 Drug: morphine IVP or IV 2 mg IVP once over 4 mins Route: IVP; Infused Over: 4 mins; ld1 Site: right jugular; 16:26 Follow up: Response: No adverse reaction ld1 16:21 Drug: morphine IVP or IV 2 mg IVP once over 4 mins; Verbal order per Dr. Marques ld1 Route: IVP; Infused Over: 4 mins; Site: right jugular; 16:26 Follow up: Response: No adverse reaction ld1 Disposition Summary: 04/25/24 15:15 Hospitalization Ordered Notes: Hospitalization Status: Inpatient Admission yves Provider: Jeffrey Hou cha Location: Telemetry/MedSurg (Inpatient) yves Condition: Fair yves Problem: new yves Symptoms: have improved yves Bed/Room Type: Standard yves Room Assignment: 219(04/25/24 16:08) eb Diagnosis - Dyspnea yves - COPD/ Chronic obstructive pulmonary disease with (acute) exacerbation yves - Hypoxemia yves Forms: - Medication Reconciliation Form yves - SBAR form yves - Leadership Thank You Letter yves Signatures: Dispatcher [employer] EDKrishna Wilson MD MD cha Attema, Ranulfo, CUSTOMS VERIFIER-C CUSTOMS VERIFIER-Cla1 Rodrick Santacruz, RN RN Heaven Disla Lauren, RN RN ld1 Luz Moreno RN RN ko1 Corrections: (The following items were deleted from the chart) 13:59 13:40 AZITHromycin PO 500 mg PO once ordered. yves yves 13:59 13:59 BASIC METABOLIC PANEL+C.LAB.BRZ ordered. EDMS EDMS 13:59 13:59 CBC+H.LAB.BRZ ordered. EDMS EDMS 13:59 13:59 HEPATIC FUNCTION+C.LAB.BRZ ordered. EDMS EDMS 13:59 13:59 MAGNESIUM+C.LAB.BRZ ordered. EDMS EDMS 13:59 13:59 PROBNP+C.LAB.BRZ ordered. EDMS EDMS 13:59 13:59 PROTIME (+INR)+COAG.LAB.BRZ ordered. EDMS EDMS 13:59 13:59 Troponin High Sensitivity+C.LAB.BRZ ordered. EDMS EDMS 13:59 13:59 BLOOD CULTURE*+BA.LAB.BRZ ordered. EDMS EDMS 13:59 13:59 LACTATE+C.LAB.BRZ ordered. EDMS EDMS 13:59 13:59 Chest Single View+RAD.RAD.BRZ ordered. EDMS EDMS 14:03 13:40 Chest Pa And Lat (2 Views)+RAD.RAD.BRZ ordered. EDMS EDMS 16:08 15:15 yves eb
--- NOTE | 2024-04-25 15:16 | ER ---
Nurse's Notes [facility] Name: Olena Orourke Age: 63 yrs Sex: Female : 1960 Arrival Date: 04/25/2024 Time: 13:17 Bed 3 Private MD: Diagnosis: Dyspnea;COPD/ Chronic obstructive pulmonary disease with (acute) exacerbation;Hypoxemia Presentation: 04/25 13:46 Chief complaint: Patient states: SOB, SIGNED OUT AMA FROM FLOOR THIS MORNING AFTER bp ADMIT FOR FLU. Coronavirus screen: At this time, the client does not indicate any symptoms associated with coronavirus-19. Ebola Screen: No symptoms or risks identified at this time. Initial Sepsis Screen: Does the patient meet any 2 criteria? RR > 20 per min. HR > 90 bpm. Yes Does the patient have a suspected source of infection? If YES to both, name of provider notified: Krishna Marques MD. Risk Assessment: Do you want to hurt yourself or someone else? Patient reports no desire to harm self or others. Onset of symptoms is unknown. 13:46 Method Of Arrival: Wheelchair bp 13:46 Acuity: ERIC 2 bp Historical: - Allergies: 13:47 PENICILLINS; bp - PMHx: 13:47 Atrial fibrillation; diabetes mellitus; Congestive heart failure; COPD; bp Hypercholesterolemia; Myocardial infarction; Hypertension; - PSHx: 13:47 Coronary artery bypass graft; bp - Immunization history:: Adult Immunizations up to date. - Infectious Disease History:: Denies. - Social history:: Smoking status: Patient reports the use of cigarette tobacco products, unknown amount. - Family history:: not pertinent. Assessment: 16:22 General: Appears in no apparent distress. uncomfortable, Behavior is cooperative, ld1 appropriate for age, anxious. Pain: Complains of pain in chest Pain does not radiate. Pain currently is 8 out of 10 on a pain scale. Quality of pain is described as throbbing, Pain began suddenly, Is continuous. Neuro: Level of Consciousness is awake, alert, obeys commands, Oriented to person, place, time, situation, Appropriate for age. Cardiovascular: Capillary refill < 3 seconds Patient's skin is warm and dry. Rhythm is sinus rhythm. Respiratory: Reports shortness of breath at rest on exertion labored breathing Airway is patent Respiratory effort is even, labored, the patient has moderate shortness of breath. GI: Abdomen is round non-distended. : No signs and/or symptoms were reported regarding the genitourinary system. EENT: No signs and/or symptoms were reported regarding the EENT system. Derm: No signs and/or symptoms reported regarding the dermatologic system. Musculoskeletal: No signs and/or symptoms reported regarding the musculoskeletal system. 16:25 Reassessment: Patient appears in no apparent distress at this time. No changes from ld1 previously documented assessment. Patient and/or family updated on plan of care and expected duration. Pain level reassessed. Vital Signs: 13:45 BP 191 / 102; Pulse 98; Resp 26; Pulse Ox 85% on 5 lpm NC; ld1 13:46 BP 152 / 95; Pulse 102; Resp 24; Temp 97.5; Pulse Ox 66% on R/A; bp 13:59 Weight 59 kg; ko1 14:33 BP 150 / 80; Pulse 94; Resp 16; Pulse Ox 90% on 6 lpm NC; ld1 15:00 BP 177 / 96; Pulse 94; Resp 17; Pulse Ox 91% on 6 lpm NC; ld1 15:45 BP 161 / 99; Pulse 98; Resp 20; Pulse Ox 92% on 6 lpm NC; ld1 16:22 BP 163 / 94; Pulse 93; Resp 16; Pulse Ox 92% on 6 lpm NC; ld1 ED Course: 13:20 Patient arrived in ED. ra3 13:38 Krishna Marques MD is Attending Physician. yves 13:47 Triage completed. bp 13:48 Arm band placed on. bp 14:45 Inserted saline lock: 22 gauge in left hand, using aseptic technique. ,using aseptic em1 technique. Thumb Flushed with 10 mL NS. 15:13 XRAY Chest (1 view) In Process Unspecified. EDMS 15:13 Jeffrey Hou MD is Hospitalizing Provider. yves 15:23 Luz Moreno RN is Primary Nurse. ko1 Administered Medications: 13:59 CANCELLED (Duplicate Order): [id number] mg PO once yves 14:19 Drug: Levalbuterol Inhalation 3.75 mg Inhalation once Route: Inhalation; ko1 14:35 Follow up: Response: No adverse reaction ko1 14:19 Drug: Ipratropium Inhalation Aerosol 0.5 mg Inhalation once Route: Inhalation; ko1 14:35 Follow up: Response: No adverse reaction ko1 14:41 Drug: NS 0.9% IV (30 ml/kg) 30 ml/kg IV at bolus once; Sepsis Protocol; to be given as ko1 a bolus over 90 minutes Route: IV; Rate: bolus; Site: left hand; 16:05 Follow up: Response: No adverse reaction; IV Status: Completed infusion; IV Intake: ko1 1000ml 14:41 Drug: Famotidine IVP 20 mg IVP once; dilute with 10 mL 0.9% NaCl; give over 2 minutes ko1 Route: IVP; Site: left hand; 14:56 Follow up: Response: No adverse reaction ko1 14:42 Drug: MethylPrednisoLONE IVP 125 mg IVP once Route: IVP; Site: left hand; ko1 14:57 Follow up: Response: No adverse reaction ko1 14:43 Drug: Rocephin IV 1 grams IV at per protocol once; Given slow IV push per pharmacy ko1 instructions Route: IV; Rate: per protocol; Site: left hand; 15:15 Follow up: Response: No adverse reaction; IV Status: Completed infusion; IV Intake: [id number] 14:43 Drug: Zithromax IVPB 500 mg IVPB once over 1 hrs; mix in 250 mL NS Route: IVPB; Infused ko1 Over: 1 hrs; Site: left hand; 16:26 Follow up: Response: No adverse reaction; IV Status: Completed infusion; IV Intake: ld1 500ml 16:20 Drug: morphine IVP or IV 2 mg IVP once over 4 mins Route: IVP; Infused Over: 4 mins; ld1 Site: right jugular; 16:26 Follow up: Response: No adverse reaction ld1 16:21 Drug: morphine IVP or IV 2 mg IVP once over 4 mins; Verbal order per Dr. Marques ld1 Route: IVP; Infused Over: 4 mins; Site: right jugular; 16:26 Follow up: Response: No adverse reaction ld1 Intake: 15:15 IV: 10ml; Total: 10ml. ko1 16:05 IV: 1000ml; Total: 1010ml. ko1 16:26 IV: 500ml; Total: 1510ml. ld1 Outcome: 15:15 Decision to Hospitalize by Provider. yves 16:47 Patient left the ED. ld1 Signatures: Dispatcher [employer] Krishna Broderick MD MD cha Martinez, Eligio em1 Rodrick Santacruz, RN RN Vaishnavi Conner RN RN ld1 Luz Moreno RN RN neri1 Becky Mckeon ra3
--- NOTE | 2024-04-25 15:20 | RAD REPORT ---
EXAM: Chest Single View HISTORY: COPD COMPARISON: 04/20/2024 FINDINGS: LUNGS/PLEURA: Emphysema with increasing irregular airspace disease in the lung bases bilaterally. Sma ll pleural effusions. MEDIASTINUM: The mediastinal silhouette is within normal limits. CARDIAC: The cardiac silhouette is within normal limits. UPPER ABDOMEN: No significant abnormality. BONES: Sternotomy. No acute abnormality. LINES/TUBES/OTHER: N/A IMPRESSION: Basilar airspace disease, right greater than left, concerning for pneumonia, less likely edema.
[2024-04-25 15:38] LABS: Absolute Lymphocytes (CBC) 0.5 K/uL (0.7-4.9); Absolute Monocytes 0.7 K/uL (0.1-1.3); Absolute Neutrophil 4.4 K/uL (1.8-8.0); Basophils % 0.3 % (0-1.3); Eosinophils % 0.1 % (0-4.4); Hematocrit 27.9 % (36.0-45.0); Hemoglobin 9.6 g/dL (12.0-15.0); Lymphocytes % 8.3 % (15.3-44.8); MCH 28.6 pg (27.0-35.0); MCHC 34.6 g/dL (32.0-36.0); MCV 82.9 fL (80-100); MPV 8.1 fL (7.6-11.3); Monocytes % 11.9 % (3.3-12.3); Neutrophils % 79.4 % (41.7-73.7); Nucleated Red Blood Cells % 0.2 % (0-0); Platelets 45 thou/uL (152-406); RBC Red Blood Cell Count 3.36 M/uL (3.86-4.86); Red Cell Distribution Width 15.2 % (12.1-15.2)
[2024-04-25 15:43] LABS: PT Prothrombin Time 13.5 SECONDS (9.4-12.5); Protime INR 1.29
[2024-04-25 15:57] LABS: Albumin 2.1 g/dL (3.4-5.0); Albumin/Globulin Ratio 0.5 (1.1-1.8); Anion Gap 12.3 mEq/L (5.0-15.0); Bilirubin Direct 0.3 mg/dL (0-0.2); Bilirubin Indirect, Calculated 0.4 mg/dL (0.2-0.8); Bilirubin Total 0.7 mg/dL (0.2-1.0); Globulin 3.9 g/dL (2.3-3.5); Magnesium 1.8 mg/dL (1.6-2.4); Potassium 3.3 mEq/L (3.5-5.1); Troponin High Sensitivity 10.5 pg/mL (<58.9)
[2024-04-25] MEDS ORDERED: MORPHINE 4 MG/ML SYR ONE (16:18)
--- NOTE | 2024-04-25 16:46 | P.HP ---
Certification for Inpatient Patient admitted to: Inpatient With expected LOS: >2 Midnights Patient will require the following post-hospital care: None Practitioner: I am a practitioner with admitting privileges, knowledge of patient current condition, hospital course, and medical plan of care. Services: Services provided to patient in accordance with Admission requirements found in Title 42 Section 412.3 of the Code of Federal Regulations Patient History Date of Service: 04/25/24 Reason for admission: Influenza, COPD exacerbation History of Present Illness: 63-year-old female who was admitted to our hospital on 04/20/2024 for influenza, DKA subsequently left AMA earlier today on 04/25/2024 presented back to the emergency department for trouble breathing. She felt as if she would be okay at home but realized that she was much more short of breath than she had dissipated and for that reason came back to the hospital for evaluation. During her hospitalization she was being treated with oral antibiotics, supplemental oxygen. She completed a 5-day course of Tamiflu already. Chest x-ray was obtained in the ER which showed basilar airspace disease, right greater than left concerning for pneumonia. Labs were significant for thrombocytopenia with platelet count of 45 potassium was 3.3 glucose 160 BNP 300. In the ER she was given IV fluids, Solu-Medrol, nebulizer treatments, Rocephin, Zithromax, Pepcid. ED provider wishes to admit for further management of pneumonia, influenza, hypoxia. Allergies Penicillins Allergy (Verified 12/22/17 20:32) Itching/Hives/Rash Home Medications: Aspirin [Aspirin EC 325 MG] 325 mg PO DAILY 12/22/17 Atorvastatin Calcium [Lipitor] 80 mg PO DAILY 12/22/17 Clopidogrel Bisulfate [Plavix*] 75 mg PO DAILY 12/22/17 Fluoxetine HCl [Prozac*] 20 mg PO TID 12/22/17 Levalbuterol Tartrate [Xopenex Hfa] 1 puff IN QID 12/22/17 Quetiapine [Seroquel*] 300 mg PO BEDTIME 12/22/17 carvediloL [Coreg*] 6.25 mg PO BID 12/22/17 lisinopriL [Prinivil*] 2.5 mg PO DAILY 12/22/17 - Past Medical/Surgical History Diabetic: No -: SD 2014 -: HTN -: COPD -: triple bypass 2015 -: fusion in the neck - Family History Mother -: Heart disease Father -: Cancer Notes: colon Brother -: Heart disease, Diabetes, Liver disease - Social History Alcohol use: No CD- Drugs: No Caffeine use: Yes Place of Residence: Home Review of Systems 10-point ROS is otherwise unremarkable Respiratory: Cough, Shortness of Breath Gastrointestinal: Nausea, Abdominal Pain Physical Examination - Physical Exam General: Alert, In no apparent distress, Oriented x3 HEENT: Atraumatic, PERRLA, EOMI Neck: Supple, 2+ carotid pulse no bruit, No LAD Respiratory: Expiratory wheezes Cardiovascular: No edema, Regular rate/rhythm, Normal S1 S2 Gastrointestinal: Normal bowel sounds, No tenderness Musculoskeletal: No tenderness Integumentary: No rashes Neurological: Normal speech, Normal strength at 5/5 x4 extr, Normal affect - Studies Laboratory Data (last 24 hrs) 04/25/24 04/25/24 04/25/24 15:23 15:23 15:23 WBC 5.60 Hgb 9.6 L Hct 27.9 L Plt Count 45 L PT 13.5 H INR 1.29 Sodium 138 Potassium 3.3 L BUN 11 Creatinine 0.39 L Glucose 160 H Magnesium 1.8 Total Bilirubin 0.7 AST 69 H ALT 21 Alkaline Phosphatase 109 Assessment and Plan - Plan Problem List: Acute Influenza A DKA, resolved CKD2 Chronic CHF COPD, Chronic Hypertension Hyperlipidemia Hx CAD s/p CABG hx A-fib Acute Influenza A continue tamiflu for 5 days (04/21-04/25) CXR (04/25): Basilar airspace disease right greater than left concerning for pneumonia IV rocephin (04/21-04/22) deescalated to oral cefuroxime (04/23) Received IV Rocephin/Zithromax in ED, plan to switch to p.o. levofloxacin a.m. 04/26 Dulera inhaler added per pulm 04/23 Dr. Velasquez, pulm consulted wean oxygen as tolerated Blood cx (04/20): NGTD urine cx (04/20): Mixed aileen. has home oxygen that she uses PRN (2.5L) not eating much, encouraged glucerna shakes Thrombocytopenia Hold Lovenox, use SCDs Also holding Plavix DKA, resolved on admission, presents with cough, congestion, fatigue, body aches associated with nausea/vomiting/diarrhea for 3 days . +intermittent fever Found to be in DKA in ED. given IVF, IV steroids, nebs in ED anion gap closed 04/21 Continue ACHS Accu-Chek, sliding scale insulin CKD2 continue to monitor renal function Monitor and replete electrolytes as needed Hypokalemia Protocol in place Chronic CHF COPD, Chronic Hypertension Hyperlipidemia Hx CAD s/p CABG hx a-fib confirm home meds, restart as appropriate VTE: SCDs given thrombocytopenia Code: Full Dispo: home,~2-3 days Pending improvement, appetite improves, afebrile > 24 hours Discharge Plan: Home Plan to discharge in: 48 Hours - Advance Directives Does patient have a Living Will: No Does patient have a Durable POA for Healthcare: No - Code Status/Comfort Care Code Status Assessed: Yes (Full code) Critical Care: No Time Spent Managing Pts Care (In Minutes): 63
[2024-04-25] MEDS: INSULIN REGULAR (HUMAN) 100 UNIT/ML SQ SCH (17:55)
[2024-04-25] MEDS ORDERED: ONDANSETRON 4 MG/2 ML VIAL IV PRN (17:55)
[2024-04-25] MEDS ORDERED: ALBUTEROL 2.5 MG/3 ML NEB SOL NEB PRN (17:55)
[2024-04-25] MEDS: PANTOPRAZOLE 40MG TABLET PO SCH (17:55)
[2024-04-25 18:09] VITALS: BMI 24.3
[2024-04-25] MEDS: ACETAMINOPHEN 325 MG TABLET PO PRN (19:35)
[2024-04-25] MEDS: MORPHINE 2 MG/ML SYR IV ONE (20:19)
[2024-04-25] MEDS: carvediloL 6.25 MG TAB PO SCH (20:24)
[2024-04-25] MEDS: QUETIAPINE 100MG TAB PO SCH (20:24)
[2024-04-25] MEDS: GLUCERNA SHAKE 237 ML CAN PO SCH (20:24)
[2024-04-25] MEDS: DULERA 200/5 (MOMETASONE/FORMOTEROL) INHALER IH SCH (20:39)
--- NOTE | 2024-04-25 22:32 | RAD REPORT ---
EXAM: Chest Single View HISTORY: Cough COMPARISON: Same-day FINDINGS: LUNGS/PLEURA: Worsening aeration of the lung bases bilaterally. Pleural fluid bilaterally. MEDIASTINUM: The mediastinal silhouette is within normal limits. CARDIAC: Stable size and configuration. UPPER ABDOMEN: No significant abnormality. BONES: Sternotomy. No acute abnormality. LINES/TUBES/OTHER: N/A IMPRESSION: Increasing basilar airspace disease which may reflect pneumonia with small effusions.
[2024-04-25] MEDS: FUROSEMIDE 40 MG/4 ML VIAL IV ONE (22:54)
[2024-04-26 03:56] LABS: Blood O2 Saturation 96.4 % (92-98.5)
[2024-04-26 03:57] LABS: Arterial Blood Carboxyhemoglob 1.3 % (0-1.5); Blood Gas Oxyhemoglobin 94.6 % (94-97); Blood Gas THB 16.8 g/dl (12-18)
[2024-04-26] MEDS: IPRATROPIUM BROM 0.5MG/2.5ML NEB ONE (04:00)
[2024-04-26] MEDS: ALBUTEROL 2.5 MG/3 ML NEB SOL NEB ONE (04:00)
[2024-04-26] MEDS: FUROSEMIDE 40 MG/4 ML VIAL IV ONE (04:39)
[2024-04-26] MEDS: LORazepam 2 MG/ML VIAL IV ONE (05:44)
--- NOTE | 2024-04-26 05:55 | RAD REPORT ---
EXAM DESCRIPTION: X-ray single view chest. CLINICAL HISTORY: 63 years Female, SOB COMPARISON: Chest x-ray report from 04/25/2024. The image was unavailable for review. TECHNIQUE: Single portable x-ray view of the chest performed on 04/26/2024 at 4:47 AM FINDINGS: The lungs are well expanded. There are interstitial and alveolar opacities in the inferior hemithorac es with blunting of the lateral costophrenic sulci. Findings may be due to a combination of pleural fluid, atelectasis, edema and/or pneumonia. The remainder of the lungs are grossly clear. There is no evidence of a pneumothorax. The cardiac silhouette is normal in size and configuration. There are remote postsurgical changes of the mediastinum. The mediastinal contours are normal. No acute osseous abnormality is identified. There are partially imaged postsurgical changes of the ce rvical spine. No focal soft tissue abnormalities are seen. Lines and tubes: There is an angiocatheter projecting along the inferior aspect of the right neck s oft tissues. Free air: None identified, IMPRESSION: 1. Interstitial and alveolar opacities in the inferior hemithoraces with blunting of the lateral co stophrenic sulci. Findings may be due to a combination of pleural fluid, atelectasis, edema and/or pneumonia. 2. Remote median sternotomy. Electronically signed by: Salud Frazier DO 04/26/2024 05:42 AM [facility] Due to temporary technical issues with the PACS/[employer] reporting system, reports are being flora d by the in-house radiologist without review as a courtesy to ensure prompt reporting the interpreting radiologist is fully responsible for the content of the report. Transcribed Date/Time: 04/26/2024 5:55 AM
[2024-04-26 05:59] LABS: Anion Gap 13.4 mEq/L (5.0-15.0); Potassium 3.4 mEq/L (3.5-5.1)
[2024-04-26 06:00] LABS: Absolute Lymphocytes (CBC) 0.4 K/uL (0.7-4.9); Absolute Monocytes 0.9 K/uL (0.1-1.3); Absolute Neutrophil 10.8 K/uL (1.8-8.0); Basophils % 0.3 % (0-1.3); Hematocrit 37.7 % (36.0-45.0); Hemoglobin 12.9 g/dL (12.0-15.0); Lymphocytes % 3.5 % (15.3-44.8); MCH 28.2 pg (27.0-35.0); MCHC 34.2 g/dL (32.0-36.0); MCV 82.3 fL (80-100); MPV 8.5 fL (7.6-11.3); Monocytes % 7.4 % (3.3-12.3); Neutrophils % 88.8 % (41.7-73.7); Nucleated Red Blood Cells % 0.1 % (0-0); Platelets 162 thou/uL (152-406); RBC Red Blood Cell Count 4.58 M/uL (3.86-4.86); Red Cell Distribution Width 15.4 % (12.1-15.2)
--- NOTE | 2024-04-26 07:50 | RAD REPORT ---
EXAM: CT Head Brain Wo Cont HISTORY: AMS COMPARISON: 04/11/2024 TECHNIQUE: Multiple contiguous axial images were obtained for a CT of the brain without contrast. Sag ittal and coronal reformats were performed. One or more of the following dose reduction techniques were used: Automated exposure control, adjus tment of the mA and kV according to patient size, and iterative reconstruction. Unless otherwise specified, incidental findings do not require dedicated imaging follow-up. FINDINGS: No evidence of hydrocephalus, intracranial hemorrhage, or extra-axial fluid collection. The brain is normal in morphology. The calvarium is intact. The visualized paranasal sinuses and mastoid air cells are essentially clear . IMPRESSION: No evidence of acute intracranial abnormality.
--- NOTE | 2024-04-26 08:09 | P.PN ---
Date of Service: 04/26/24 Subjective: readmitted for worsening SOB, congestion a few hours after leaving AMA yesterday noted to have short run of V-tach HR 120-130s overnight No chest pain at the time. Breathing with audible crackles. transferred to ICU overnight restless ROS: 10 point ROS as noted above, otherwise negative Physical Exam: GEN: oriented x1, confused CV: Regular rate and rhythm, no edema Pulm: Labored respirations on 6L NC, diminished, +crackles, +wheeze ABD: soft, nontender, nondistended Integumentary: No rashes Neuro: Normal speech, normal affect Problem List: Acute hypoxic respiratory failure Acute Influenza A Possible superinfection with bacterial Pneumonia COPD, Chronic (on home O2 2.5L PRN) SVT Hypothermia Hx CAD s/p CABG hx A-fib CKD2 Chronic CHF Hypertension Hyperlipidemia hx of colon cancer Acute hypoxic respiratory failure Acute Influenza A Possible Pneumonia COPD, Chronic (on home O2 2.5L PRN) on admission presents with worsening SOB, congestion, cough. She was recently admitted for acute influenza A, DKA on 04/20, subsequently left AMA 04/25/24. felt like her shortness of breath worsened after returning home for few hours so she came back. she completed 5 days of tamiflu (04/21-04/25) and was being empirically treated with cefuroxime last hospitalization (04/23-04/25) Blood and urine cultures without growth last hospitalization has home oxygen that she uses PRN (2.5L) CXR (04/25): Basilar airspace disease, R > L. repeat CXR (04/25): Increasing basilar airspace disease which may reflect pneumonia with small effusions. repeat CXR (04/26): Interstitial and alveolar opacities in the inferior hemithoraces with blunting of the lateral costophrenic sulci. Likely combination of Pleural fluid / Atelectasis / Edema and/or pneumonia. Budesonide added 04/26 dc levaquin given h/o afib / QTc prolongation Dr. Velasquez, pulm consulted continue IV cefepime; added per pulm Follow repeat blood cultures Continue IV steroids wean oxygen as tolerated abdominal pain - check CT hx of colon cancer on OSH records - GI note 01/2024 notes patient did not want to pursue further studies/eval of colon cancer SVT Hx CAD s/p CABG hx A-fib Patient noted to have short run of V-tach HR 120-130s overnight. Denies chest pain, breathing with audible crackles at the time. 93.6 temp at the time per nursing notes. Warming initiated, given IV lasix and transferred to ICU CXR (04/26): Interstitial and alveolar opacities in the inferior hemithoraces with blunting of the lateral costophrenic sulci. Likely combination of Pleural fluid / Atelectasis / Edema and/or pneumonia. Cardiology consulted check EKG CKD2 Hypokalemia continue to monitor renal function Monitor and replete electrolytes as needed Chronic CHF Hypertension Hyperlipidemia confirm home meds, restart as appropriate VTE: Code: Full Dispo: Home, 3-4 days Pending improvement, cardiac/pulm recs, oxygen requirements improve Time Spent Managing Pts Care (In Minutes): 55
[2024-04-26] MEDS: LEVALBUTEROL 0.63 MG/3 ML NEB NEB PRN (08:13)
[2024-04-26] MEDS: ATORVASTATIN 80 MG TAB PO SCH (08:32)
[2024-04-26] MEDS: POTASSIUM 25 MEQ EFFERV TAB PO ONE (08:32)
[2024-04-26] MEDS: METHYLPREDNISOLONE 40 MG INJ IV SCH (08:33)
[2024-04-26 08:37] LABS: Magnesium 1.9 mg/dL (1.6-2.4); Phosphorus 2.2 mg/dL (2.5-4.9)
[2024-04-26] MEDS ORDERED: BUSPIRONE HCL 5 MG TABLET PO PRN (09:00)
[2024-04-26] MEDS ORDERED: levoFLOXacin 750 MG TAB PO SCH (09:00)
--- NOTE | 2024-04-26 09:28 | P.CNS ---
Date of Consult: 04/26/24 Chief Complaint: Influenza, COPD exacerbation History of Present Illness: Patient is 63 years of age presented back to the emergency room apparently with dyspnea or respiratory distress patient has a history of COPD recently completed a course of Tamiflu patient is delirious Allergies Penicillins Allergy (Verified 12/22/17 20:32) Itching/Hives/Rash Home Medications: Aspirin [Aspirin EC 325 MG] 325 mg PO DAILY 12/22/17 Atorvastatin Calcium [Lipitor] 80 mg PO DAILY 12/22/17 Clopidogrel Bisulfate [Plavix*] 75 mg PO DAILY 12/22/17 Fluoxetine HCl [Prozac*] 20 mg PO TID 12/22/17 Levalbuterol Tartrate [Xopenex Hfa] 1 puff IN QID 12/22/17 Quetiapine [Seroquel*] 300 mg PO BEDTIME 12/22/17 carvediloL [Coreg*] 6.25 mg PO BID 12/22/17 lisinopriL [Prinivil*] 2.5 mg PO DAILY 12/22/17 - Past Medical/Surgical History Diabetic: No -: CT 2014 -: HTN -: COPD -: triple bypass 2015 -: fusion in the neck - Family History Mother Medical History: Heart disease Father Medical History: Cancer Notes: colon Brother Medical History: Heart disease, Diabetes, Liver disease - Social History Smoking Status: Current every day smoker Alcohol use: No CD- Drugs: No Caffeine use: Yes Place of Residence: Home Review of Systems is unable to be obtained Physical Examination Temp Pulse Resp BP Pulse Ox 97.7 F 111 H 26 H 146/90 H 95 04/26/24 05:46 04/26/24 08:32 04/26/24 06:00 04/26/24 08:32 04/26/24 06:00 General: Oriented x1, Delirious Respiratory: Diminished, Expiratory wheezes Cardiovascular: No edema, Regular rate/rhythm, Normal S1 S2 Gastrointestinal: Normal bowel sounds, Soft and benign Laboratory Data (last 24 hrs) 04/25/24 04/25/24 04/25/24 15:23 15:23 15:23 WBC 5.60 Hgb 9.6 L Hct 27.9 L Plt Count 45 L PT 13.5 H INR 1.29 Sodium 138 Potassium 3.3 L BUN 11 Creatinine 0.39 L Glucose 160 H Magnesium 1.8 Total Bilirubin 0.7 AST 69 H ALT 21 Alkaline Phosphatase 109 - Problems (1) COPD with acute exacerbation Onset Date: 12/23/17 Current Visit: No Status: Acute Plan: Patient is [age] years of age admitted with worsening dyspnea COPD exacerbation delirium cultures are all pending vital signs are stable oxygenation satisfactory chemistries labs reviewed she has some interstitial changes in the right lower lobe presumed pneumonia add cefepime but cultures are pending send is on high doses of Seroquel check arterial blood gases
[2024-04-26] MEDS: BUDESONIDE 0.5 MG/2 ML NEB NEB SCH (09:45)
[2024-04-26] MEDS: DEXMEDETOMIDINE HCL 200 MCG in NA CHLORIDE 0.9% 98 ML IV SCH (10:02)
[2024-04-26] MEDS: THIAMINE 200 MG/2 ML INJ IVP SCH (11:09)
[2024-04-26] MEDS: CEFEPIME 2 GM in NA CHLORIDE 0.9% 100 ML IV SCH (11:09)
[2024-04-26] MEDS: POTASSIUM PHOS IN 0.9 % NACL 15 MMOL/250 ML BAG IV ONE (12:28)
[2024-04-26 12:43] LABS: Arterial Blood Carboxyhemoglob 1.4 % (0-1.5); Blood Gas Oxyhemoglobin 92.1 % (94-97); Blood Gas THB 13.7 g/dl (12-18); Blood O2 Saturation 94.2 % (92-98.5)
[2024-04-26] MEDS: MORPHINE 4 MG/ML SYR IV ONE (13:42)
[2024-04-26] MEDS: VANCOMYCIN 1 GM in NA CHLORIDE 0.9% 250 ML IVPB SCH (13:42)
[2024-04-26] MEDS: DEXMEDETOMIDINE HCL 1,000 MCG in NA CHLORIDE 0.9% 490 ML IV SCH (17:59)
[2024-04-26] MEDS: MORPHINE 4 MG/ML SYR IV PRN (18:04)
[2024-04-26] MEDS: Mupirocin NASAL 2 APPL/1 GM TUBE NAS SCH (20:53)
[2024-04-27] MEDS: FUROSEMIDE 40 MG/4 ML VIAL IV ONE (02:24)
[2024-04-27 03:45] LABS: Absolute Lymphocytes (CBC) 0.6 K/uL (0.7-4.9); Absolute Neutrophil 20.4 K/uL (1.8-8.0); Basophils % 0.2 % (0-1.3); Hematocrit 40.8 % (36.0-45.0); Hemoglobin 13.8 g/dL (12.0-15.0); Lymphocytes % 2.7 % (15.3-44.8); MCH 27.8 pg (27.0-35.0); MCHC 33.8 g/dL (32.0-36.0); MCV 82.2 fL (80-100); MPV 8.6 fL (7.6-11.3); Monocytes % 8.7 % (3.3-12.3); Neutrophils % 88.4 % (41.7-73.7); Nucleated Red Blood Cells % 0.1 % (0-0); Platelets 185 thou/uL (152-406); RBC Red Blood Cell Count 4.96 M/uL (3.86-4.86); Red Cell Distribution Width 15.4 % (12.1-15.2)
[2024-04-27] MEDS: METHYLPREDNISOLONE 125 MG INJ IV SCH (03:50)
[2024-04-27 03:51] LABS: Albumin 2.2 g/dL (3.4-5.0); Albumin/Globulin Ratio 0.5 (1.1-1.8); Anion Gap 13.2 mEq/L (5.0-15.0); Bilirubin Total 1.3 mg/dL (0.2-1.0); Globulin 4.6 g/dL (2.3-3.5); Magnesium 1.7 mg/dL (1.6-2.4); Phosphorus 2.2 mg/dL (2.5-4.9); Potassium 3.2 mEq/L (3.5-5.1); Protein, Total 6.8 g/dL (6.4-8.2)
[2024-04-27 04:17] VITALS: TEMP 98.5
--- NOTE | 2024-04-27 04:30 | RAD REPORT ---
ADDENDUM #1 Urgent finding reported to Dr. Max at 04/27/2024 4:33 AM [employer] Electronically signed by: Klaus Lomeli DO 04/27/2024 04:37 AM [employer] [facility] End of Addendum EXAM DESCRIPTION: Chest Abdomen Pelvis W Cont CLINICAL HISTORY: abdominal pain, colon cancer COMPARISON: None Available. TECHNIQUE: CT of the chest, abdomen and pelvis performed following IV administration of iodinated con trast. This exam was performed according to our departmental dose-optimization program, which includes automated exposure control, adjustment of the mA and/or kV according to patient size and/or use of iterative reconstruction technique. FINDINGS: Chest: Thyroid: No abnormalities of the visualized thyroid. Great Vessels: Likely greater than 50% stenosis at the origin of the left subclavian artery on the ba sis of atherosclerotic plaque. The remaining great vessels have patent origins. Thoracic Aorta: Atherosclerotic calcification of thoracic aorta. No evidence of thoracic aortic aneur ysm. Pulmonary arteries: Dilation the main pulmonary artery. No filling defects. Heart: Cardiomegaly. Coronary artery atherosclerosis. Prior median sternotomy. Lymph Nodes: No enlarged mediastinal lymph nodes identified. Esophagus: No abnormalities of the esophagus identified Other: No additional findings. Lungs: Respiratory motion artifact. Bilateral lower lobe airspace consolidations. There may be a comp onent of peripheral chronic interstitial lung disease as well. Pleura: Trace right and small left pleural effusion. No pneumothorax. Trachea/Airways: No abnormalities of the visualized trachea or airways. Abdomen: Liver: Hepatomegaly with decreased density. Gallbladder: Prior cholecystectomy. Spleen, Pancreas, and Adrenal Glands: Splenomegaly. Pancreatic atrophy. Adrenal glands are unremark able. Kidneys: No hydronephrosis or obstructing ureteral calculus. Vasculature: Aortoiliac atherosclerosis. There is long segment mural thrombus of the infrarenal abdom inal aorta producing at least 60% narrowing. High-grade stenosis at the origin of the common iliac arteries. Tandem areas of flow-limiting stenosis throughout the external iliac arteries. The celiac a rtery is patent. IVC is unremarkable. There is occlusive likely acute thrombus in the proximal SMA with reconstitution in the low after a approximately 3 cm segment of obstruction. Stomach: The stomach and duodenum have normal course. Other: No free intraperitoneal air. Small amount of free fluid. Pelvis: Bladder: Urinary bladder is unremarkable. Bowel: Dilated loops of bowel in the midabdomen with adjacent inflammatory change and air-fluid lev els without well defined transition point. The bowel wall in this region does not enhance in a similar manner to the more proximal and distal small bowel. Mild long segment wall thickening of the colon. Scattered diverticula of the colon. Appendix: Normal appendix. Pelvis: Prior hysterectomy. Bones: Multilevel endplate spondylosis and facet arthropathy. IMPRESSION: 1. There is occlusive thrombus in the proximal SMA with reconstitution in the low after a approxima tely 3 cm segment of obstruction. 2. Dilated loops of bowel in the midabdomen with adjacent inflammatory change and air-fluid levels without well defined transition point. The bowel wall in this region does not enhance in a similar manner to the more proximal and distal small bowel. Findings are concerning for acute small bowel isc hemia. 3. Mild long segment wall thickening of the colon. This may be related to nonspecific colitis or ma y be related to under distention. 4. There is long segment mural thrombus of the infrarenal abdominal aorta producing at least 60% na rrowing. 5. High-grade stenosis at the origin of the common iliac arteries. Tandem areas of flow-limiting st enosis throughout the external iliac arteries. 6. Cardiomegaly with coronary artery atherosclerosis. 7. Enlargement of the main pulmonary artery could be seen with pulmonary arterial hypertension. 8. Bilateral lower lobe airspace consolidations concerning for pneumonia. There may be a component of peripheral chronic interstitial lung disease as well. 9. Hepatosplenomegaly and hepatic steatosis. 10. Diverticulosis without evidence of acute diverticulitis. Electronically signed by: Klaus Lomeli DO 04/27/2024 04:25 AM [facility] Due to temporary technical issues with the PACS/[employer] reporting system, reports are being flora d by the in-house radiologist without review as a courtesy to ensure prompt reporting the interpreting radiologist is fully responsible for the content of the report. Transcribed Date/Time: 04/27/2024 4:41 AM
[2024-04-27] MEDS: MAGNESIUM SULFATE 1 gm IVPB 1 GM/100 ML BAG IV ONE (04:42)
--- NOTE | 2024-04-27 04:42 | P.PN ---
Date of Service: 04/27/24 Patient continues to be in distress Breathing treatments continued Electrolytes replace accordingly Abdominal distention noted Will give pain medications CT chest abdomen pending Change status to stat for reading Discussed CT findings with the radiologist Consistent with SMA thrombus with bowel ischemia Discussed with on-call surgery Dr. Diaz Will initiate transfer for higher level of care as we do not have IR or vascular surgery
[2024-04-27] MEDS: POTASSIUM PHOS IN 0.9 % NACL 15 MMOL/250 ML BAG IV ONE (04:44)
[2024-04-27] MEDS: MORPHINE 2 MG/ML SYR IV ONE (04:58)
[2024-04-27] MEDS: HEPARIN 5000 UNIT/ML 1 ML VIAL IV ONE (05:20)
[2024-04-27] MEDS: HEPARIN/D5W 25,000 UNIT/500 ML BAG IV SCH (05:22)
[2024-04-27 05:26] LABS: Band Neutrophils 46 % (0-1); Blood Morphology Comment NOT SEEN (NOT SEEN); Differential Total Cells Count 100; Lymphocytes 1 % (15-42); Monocytes 5 % (0-10); Platelet Estimate ADEQ; Segmented Neutrophils 48 % (40-80)
[2024-04-27 06:30] VITALS: BP 118/104
--- NOTE | 2024-04-27 08:03 | P.PN ---
Date of Service: 04/27/24 Subjective: ROS: 10 point ROS as noted above, otherwise negative Physical Exam: GEN: oriented x1, confused CV: Regular rate and rhythm, no edema Pulm: Labored respirations on 6L NC, diminished, +crackles, +wheeze ABD: periumbilical tenderness, distended Integumentary: No rashes Neuro: Normal speech, normal affect Problem List: Acute hypoxic respiratory failure Acute Influenza A Possible superinfection with bacterial Pneumonia COPD, Chronic (on home O2 2.5L PRN) SVT Hypothermia Hx CAD s/p CABG hx A-fib CKD2 Chronic CHF Hypertension Hyperlipidemia hx of colon cancer Acute hypoxic respiratory failure Acute Influenza A Possible Pneumonia COPD, Chronic (on home O2 2.5L PRN) on admission presents with worsening SOB, congestion, cough. She was recently admitted for acute influenza A, DKA on 04/20, subsequently left AMA 04/25/24. felt like her shortness of breath worsened after returning home for few hours so she came back. she completed 5 days of tamiflu (04/21-04/25) and was being empirically treated with cefuroxime last hospitalization (04/23-04/25) Blood and urine cultures without growth last hospitalization has home oxygen that she uses PRN (2.5L) CXR (04/25): Basilar airspace disease, R > L. repeat CXR (04/25): Increasing basilar airspace disease which may reflect pneumonia with small effusions. repeat CXR (04/26): Interstitial and alveolar opacities in the inferior hemithoraces with blunting of the lateral costophrenic sulci. Likely combination of Pleural fluid / Atelectasis / Edema and/or pneumonia. Budesonide added 04/26 dc levaquin given h/o afib / QTc prolongation Dr. Velasquez, pulm consulted continue IV cefepime; added per pulm Follow repeat blood cultures Continue IV steroids wean oxygen as tolerated abdominal pain - check CT hx of colon cancer on OSH records - GI note 01/2024 notes patient did not want to pursue further studies/eval of colon cancer Proximal SMA occlusive thrombus CT abdomen (04/26/24): occlusive thrombus in the proximal SMA with reconstitution in the low after a approximately 3 cm segment of obstruction. SVT Hx CAD s/p CABG hx A-fib Patient noted to have short run of V-tach HR 120-130s overnight. Denies chest pain, breathing with audible crackles at the time. 93.6 temp at the time per nursing notes. Warming initiated, given IV lasix and transferred to ICU CXR (04/26): Interstitial and alveolar opacities in the inferior hemithoraces with blunting of the lateral costophrenic sulci. Likely combination of Pleural fluid / Atelectasis / Edema and/or pneumonia. Cardiology consulted check EKG CKD2 Hypokalemia continue to monitor renal function Monitor and replete electrolytes as needed Chronic CHF Hypertension Hyperlipidemia confirm home meds, restart as appropriate VTE: Code: Full Dispo: Home, 3-4 days Pending improvement, cardiac/pulm recs, oxygen requirements improve Time Spent Managing Pts Care (In Minutes): 55
--- NOTE | 2024-04-27 08:56 | P.DS ---
Admission Date: 04/25/24 Discharge Date: 04/27/24 Disposition: TRANSFER TO [facility] Reason for Admission: Influenza, COPD exacerbation Consultations: Cardiology - Dr. Horton / Dr. Blandon Pulmonology - Dr. Velasquez Brief History of Present Illness: 63-year-old female who was admitted to our hospital on 04/20/2024 for influenza, DKA subsequently left AMA earlier today on 04/25/2024 presented back to the emergency department for trouble breathing. She felt as if she would be okay at home but realized that she was much more short of breath than she had dissipated and for that reason came back to the hospital for evaluation. During her hospitalization she was being treated with oral antibiotics, supplemental oxygen. She completed a 5-day course of Tamiflu already. Chest x-ray was obtained in the ER which showed basilar airspace disease, right greater than left concerning for pneumonia. Labs were significant for thrombocytopenia with platelet count of 45 potassium was 3.3 glucose 160 BNP 300. In the ER she was given IV fluids, Solu-Medrol, nebulizer treatments, Rocephin, Zithromax, Pepcid. ED provider wishes to admit for further management of pneumonia, influenza, hypoxia. Hospital Course: Problem List: Acute hypoxic respiratory failure Acute Influenza A New Proximal SMA occlusive thrombus Possible superinfection with bacterial Pneumonia COPD, acute on Chronic (on home O2 2.5L PRN) SVT / hx of afib Hypothermia Hx CAD s/p CABG CKD2 Chronic CHF Hypertension Hyperlipidemia hx of colon cancer Patient readmitted for worsening SOB, congestion a few hours after leaving AMA on 04/25. She was recently admitted for acute influenza A, with hyperglycemia/ DKA on 04/20. DKA quickly resolved within 24hrs, but continues with shortness of breath / dyspnea, and requilring ~4L NC. She was improving daily, but had minimal to no appetite and remained tachypneic. On 04/25/24 she stated she felt much better and ready to go home. We discussed she was still tachypneic / labored respirations and needing O2 - would desaturate to 70-80s after a few minutes of taking nasal cannula off. She stated she had oxygen at home and did not want to stay any longer. Risks were discussed, and she decided to leave AMA. A few hours after leaving, she presented back to the ER with increased labored respirations. he previously completed 5 days of tamiflu last hospitalization (04/21-04/25) and was being empirically treated for possible secondary bacterial pneumonia with Rocephin/Cefuroxime (04/21-04/25). Blood and urine cultures without growth last hospitalization. 04/25 on readmission - Blood cultures noted to preliminary be growing GPC in clusters in 1/4 bottles. Possible contaminant vs would be at risk for staph pneumonia. Initial CXR noted Basilar airspace disease, R > L concerning for pneumonia. She received IV steroids, IV rocephin/azithromycin, duonebs, and IVF boluse in ED. History of afib and ekg with QTc prolongation, along with her risk, lead to yves nge in antibiotics. She has been on cefepime and vanc for empiric coverage since 04/26 A few hours after admission, patient was noted to have a short run of V-tach HR 120-130s. She denied chest pain at the time but reported increased lethargy, abdominal pains with audible crackles. Cardiology was consulted. She was given IV lasix, and was transferred to the ICU. CT head was negative for any acute findings. Dr. Velasquez pulm was consulted, Repeat chest xray noted interstitial and alveolar opacities in the inferior hemithoraces with blunting of the lateral costophrenic sulci, Likely combination of Pleural fluid / Atelectasis / Edema and/or pneumonia. CT abdomen with findings below, noted new proximal SMA occlusive thrombus. She was started on a heparin drip. Given patients worsening condition, abdominal pain, and new CT findings, recommending transfer to tertiary level of care facility for higher level of care. Transfer initiated to [facility] 04/27/24 and acceptance obtained for medical center. After being accepted, spoke to Critical care ICU at [facility] who recommended patient be intubated prior to being transported. Patient successfully intubated 04/27/24. An OSH note from ~01/2024 reported a diagnosis of colon cancer in ~2022 and that she was not pursuing any further workup/evaluation. Unable to confirm with patient. CT Chest / Abdomen / Pelvis (04/26/24): 1. There is occlusive thrombus in the proximal SMA with reconstitution in the low after a approximately 3 cm segment of obstruction. 2. Dilated loops of bowel in the midabdomen with adjacent inflammatory change and air-fluid levels without well defined transition point. The bowel wall in this region does not enhance in a similar manner to the more proximal and distal small bowel. Findings are concerning for acute small bowel ischemia. 3. Mild long segment wall thickening of the colon. This may be related to nonspecific colitis or may be related to under distention. 4. There is long segment mural thrombus of the infrarenal abdominal aorta producing at least 60% narrowing. 5. High-grade stenosis at the origin of the common iliac arteries. Tandem areas of flow-limiting stenosis throughout the external iliac arteries. 6. Cardiomegaly with coronary artery atherosclerosis. 7. Enlargement of the main pulmonary artery could be seen with pulmonary arterial hypertension. 8. Bilateral lower lobe airspace consolidations concerning for pneumonia. There may be a component of peripheral chronic interstitial lung disease as well. 9. Hepatosplenomegaly and hepatic steatosis. 10. Diverticulosis without evidence of acute diverticulitis. Physical Exam this morning / prior to intubation: GEN: AOx2-3 (self, year, "medical facility), slow speech, somnolent CV: Sinus Tachycardia 100-120, trace pedal edema Pulm: b/l crackles at bases, tachypneic, on 4L NC ABD: periumbilical tenderness, mild distention, not rigid Neuro: restless, moves all extremities, somnolent Vital Signs/Physical Exam: Temp Pulse Resp BP Pulse Ox 98.5 F 112 H 27 H 118/104 H 95 04/27/24 04:00 04/27/24 06:00 04/27/24 06:00 04/27/24 06:00 04/27/24 06:00 Laboratory Data at Discharge: WBC 23.00 thou/uL (4.3-10.9) H 04/27/24 03:20 Hgb 13.8 g/dL (12.0-15.0) 04/27/24 03:20 Hct 40.8 % (36.0-45.0) 04/27/24 03:20 Plt Count 185 thou/uL (152-406) 04/27/24 03:20 PT 13.5 SECONDS (9.4-12.5) H 04/25/24 15:23 INR 1.29 04/25/24 15:23 APTT 21.9 SECONDS (24.3-36.9) L 04/27/24 05:20 Sodium 144 mEq/L (136-145) D 04/27/24 03:20 Potassium 3.2 mEq/L (3.5-5.1) L 04/27/24 03:20 BUN 17 mg/dL (7-18) 04/27/24 03:20 Creatinine 0.70 mg/dL (0.55-1.02) 04/27/24 03:20 Glucose 152 mg/dL (74-106) H 04/27/24 03:20 Phosphorus 2.2 mg/dL (2.5-4.9) L 04/27/24 03:20 Magnesium 1.7 mg/dL (1.6-2.4) 04/27/24 03:20 Total Bilirubin 1.3 mg/dL (0.2-1.0) H 04/27/24 03:20 AST 75 U/L (15-37) H 04/27/24 03:20 ALT 22 U/L (13-56) 04/27/24 03:20 Alkaline Phosphatase 123 U/L (45-117) H 04/27/24 03:20 Home Medications: Aspirin [Aspirin EC 325 MG] 325 mg PO DAILY 12/22/17 Atorvastatin Calcium [Lipitor] 80 mg PO DAILY 12/22/17 Clopidogrel Bisulfate [Plavix*] 75 mg PO DAILY 12/22/17 Fluoxetine HCl [Prozac*] 20 mg PO TID 12/22/17 Levalbuterol Tartrate [Xopenex Hfa] 1 puff IN QID 12/22/17 Quetiapine [Seroquel*] 300 mg PO BEDTIME 12/22/17 carvediloL [Coreg*] 6.25 mg PO BID 12/22/17 lisinopriL [Prinivil*] 2.5 mg PO DAILY 12/22/17 Physician Discharge Instructions: Patient readmitted for worsening SOB, congestion a few hours after leaving AMA on 04/25. She was recently admitted for acute influenza A, with hyperglycemia/ DKA on 04/20. DKA quickly resolved within 24hrs, but continues with shortness of breath / dyspnea, and requilring ~4L NC. She was improving daily, but had minimal to no appetite and remained tachypneic. On 04/25/24 she stated she felt much better and ready to go home. We discussed she was still tachypneic / labored respirations and needing O2 - would desaturate to 70-80s after a few minutes of taking nasal cannula off. She stated she had oxygen at home and did not want to stay any longer. Risks were discussed, and she decided to leave AMA. A few hours after leaving, she presented back to the ER with increased labored respirations. he previously completed 5 days of tamiflu last hospitalization (04/21-04/25) and was being empirically treated for possible secondary bacterial pneumonia with Rocephin/Cefuroxime (04/21-04/25). Blood and urine cultures without growth last hospitalization. 04/25 on readmission - Blood cultures noted to preliminary be growing GPC in clusters in 1/4 bottles. Possible contaminant vs would be at risk for staph pneumonia. Initial CXR noted Basilar airspace disease, R > L concerning for pneumonia. She received IV steroids, IV rocephin/azithromycin, duonebs, and IVF boluse in ED. History of afib and ekg with QTc prolongation, along with her risk, lead to ch lola in antibiotics. She has been on cefepime and vanc for empiric coverage since 04/26 A few hours after admission, patient was noted to have a short run of V-tach HR 120-130s. She denied chest pain at the time but reported increased lethargy, abdominal pains with audible crackles. Cardiology was consulted. She was given IV lasix, and was transferred to the ICU. CT head was negative for any acute findings. Dr. Velasquez pulm was consulted, Repeat chest xray noted interstitial and alveolar opacities in the inferior hemithoraces with blunting of the lateral costophrenic sulci, Likely combination of Pleural fluid / Atelectasis / Edema and/or pneumonia. CT abdomen with findings below, noted new proximal SMA occlusive thrombus. She was started on a heparin drip. Given patients worsening condition, abdominal pain, and new CT findings, recommending transfer to tertiary level of care facility for higher level of care. Transfer initiated to [facility] 04/27/24 and acceptance obtained for medical center. An OSH note from ~01/2024 reported a diagnosis of colon cancer in ~2022 and that she was not pursuing any further workup/evaluation. Unable to confirm with patient. CT Chest / Abdomen / Pelvis (04/26/24): 1. There is occlusive thrombus in the proximal SMA with reconstitution in the low after a approximately 3 cm segment of obstruction. 2. Dilated loops of bowel in the midabdomen with adjacent inflammatory change and air-fluid levels without well defined transition point. The bowel wall in this region does not enhance in a similar manner to the more proximal and distal small bowel. Findings are concerning for acute small bowel ischemia. 3. Mild long segment wall thickening of the colon. This may be related to nonspecific colitis or may be related to under distention. 4. There is long segment mural thrombus of the infrarenal abdominal aorta producing at least 60% narrowing. 5. High-grade stenosis at the origin of the common iliac arteries. Tandem areas of flow-limiting stenosis throughout the external iliac arteries. 6. Cardiomegaly with coronary artery atherosclerosis. 7. Enlargement of the main pulmonary artery could be seen with pulmonary arterial hypertension. 8. Bilateral lower lobe airspace consolidations concerning for pneumonia. There may be a component of peripheral chronic interstitial lung disease as well. 9. Hepatosplenomegaly and hepatic steatosis. 10. Diverticulosis without evidence of acute diverticulitis. Followup: [facility] [Primary Care Provider] - Time spent managing pt's care (in minutes): 60
[2024-04-27] MEDS: MORPHINE 2 MG/ML SYR IV PRN (08:58)
[2024-04-27] MEDS: NA CHLORIDE 0.9% 500 ML IV ONE (09:30)
[2024-04-27] MEDS: propofoL 1,000 MG/100 ML VIAL IV ONE (11:20)
[2024-04-27] MEDS ORDERED: propofoL 1,000 MG/100 ML VIAL IV SCH (12:00)
--- NOTE | 2024-04-27 12:12 | RAD REPORT ---
EXAM: XR of the abdomen HISTORY: Abdominal pain ogt COMPARISON: 04/26/2024 FINDINGS: XR of the abdomen shows a several dilated right-sided small bowel loops, similar to prior C T study.. Enteric tube tip is in the distal stomach probably the duodenal C-loop. The bones are unremarkable.
--- NOTE | 2024-04-27 12:23 | RAD REPORT ---
EXAMINATION: ONE VIEW CHEST XR CLINICAL INDICATION: ETT TECHNIQUE: Frontal chest projection is submitted. Examination is limited by patient positioning and t echnique. COMPARISON: 04/26/2024 FINDINGS: Moderate bilateral pulmonary opacities are again noted slightly progressive since the comparative gisel dy. Findings probably indicate pneumonia or pulmonary edema. ARDS is a possibility. The heart is mildly enlarged with sternotomy wires present. ET tube tip is above the nasrin the level superior aor tic arch. Enteric tube tip is in the stomach distally.
--- NOTE | 2024-04-27 12:44 | P.PN ---
Subjective Date of Service: 04/27/24 Chief Complaint: Respiratory failure extensive thrombosis Patient CT scan as noted below she is currently hypoxic was intubated transferred to a tertiary care facility patient has multiple areas of thrombosis as detailed in the CT scan Physical Examination - Vital Signs Temperature: 98.5 F Blood Pressure: 118/104 Pulse: 112 Respirations: 27 Pulse Ox (%): 95 - Physical Exam General: Unresponsive Respiratory: Clear to auscultation bilaterally Cardiovascular: Normal pulses Gastrointestinal: No rebound Assessment And Plan - Current Problems (Diagnosis) (1) COPD with acute exacerbation Onset Date: 12/23/17 Current Visit: No Status: Acute Plan: Patient admitted with COPD exacerbation bilateral pneumonia CT scan detailed below/patient was intubated stable to be transported blood cultures are also positive white count elevated/currently on a ventilator Vent settings reviewed on vancomycin and cefepime rt1. There is occlusive thrombus in the proximal SMA with reconstitution in the low after a approximately 3 cm segment of obstruction. RADIOLOGY SERVICES REPORT (Continued) Name: JACQUI YANG CC: Jeffrey Hou MD; JACQUI CRUZ / Report: [id number] Radiology Services Report Page 3 of 3 2. Dilated loops of bowel in the midabdomen with adjacent inflammatory change and air-fluid levels without well defined transition point. The bowel wall in this region does not enhance in a similar manner to the more proximal and distal small bowel. Findings are concerning for acute small bowel ischemia. 3. Mild long segment wall thickening of the colon. This may be related to nonspecific colitis or may be related to under distention. 4. There is long segment mural thrombus of the infrarenal abdominal aorta producing at least 60% narrowing. 5. High-grade stenosis at the origin of the common iliac arteries. Tandem areas of flow-limiting stenosis throughout the external iliac arteries. 6. Cardiomegaly with coronary artery atherosclerosis. 7. Enlargement of the main pulmonary artery could be seen with pulmonary arterial hypertension. 8. Bilateral lower lobe airspace consolidations concerning for pneumonia. There may be a component of peripheral chronic interstitial lung disease as well. 9. Hepatosplenomegaly and hepatic steatosis. 10. Diverticulosis without evidence of acute diverticulitis.
[2024-04-27] MEDS: FENTANYL CITR 100 MCG/2 ML IV ONE (12:46)
[2024-04-27] MEDS ORDERED: SUCCINYLCHOLINE 20 MG/ML (10 ML) IV ONE (12:49)
[2024-04-27] MEDS ORDERED: ETOMIDATE 20 MG/10 ML VIAL IV ONE (12:49)
[2024-04-27 13:15] VITALS: O2SAT 92
--- NOTE | 2024-04-30 13:09 | EKG ---
Test Date: 2024-04-25 Test Time: 13:58:47 Pairer: Leroy LANDAVERDE MEASUREMENT RESULTS: Intervals: Rate: 79 NJ: 136 QRSD: 156 QT: 430 QTc: 493 Horton: P: 81 NJ: 136 QRS: -34 T: 65 INTERPRETIVE STATEMENTS: Normal sinus rhythm Left axis deviation Right bundle branch block Abnormal ECG Compared to ECG 04/20/2024 22:16:43 Left-axis deviation now present Sinus tachycardia no longer present Electronically Signed On 04-30-24 13:02:25 TARIFF SUPERVISOR by Jabari Horton
== END 2024-04-27 12:50 | disposition short-term general hospital (02) | DRG 193 ==
LOC: ER 13:17 → 2ND 15:56 → 3RD-ICU 04-26 05:20
PROVIDERS: ADMIT Hospitalist; ATTEND Hospitalist
PROC: 4A033R1 Measurement of Arterial Saturation, Peripheral, Percutaneous Approach (ICD-10-PCS; principal; 2024-04-25)
PROC: 02HV33Z Insertion of Infusion Device into Superior Vena Cava, Percutaneous Approach (ICD-10-PCS; 2024-04-25)
PROC: 0T9B70Z Drainage of Bladder with Drainage Device, Via Natural or Artificial Opening (ICD-10-PCS; 2024-04-25)
DX: J10.00 Influenza due to other identified influenza virus with unspecified type of pneumonia (principal); E11.10 Type 2 diabetes mellitus with ketoacidosis without coma; J96.01 Acute respiratory failure with hypoxia; J44.1 Chronic obstructive pulmonary disease with (acute) exacerbation; I13.0 Hypertensive heart and chronic kidney disease with heart failure and stage 1 through stage 4 chronic kidney disease, or unspecified chronic kidney disease; I47.20 Ventricular tachycardia, unspecified; J44.0 Chronic obstructive pulmonary disease with (acute) lower respiratory infection; J15.9 Unspecified bacterial pneumonia; I50.9 Heart failure, unspecified; E11.22 Type 2 diabetes mellitus with diabetic chronic kidney disease; I48.91 Unspecified atrial fibrillation; E87.6 Hypokalemia; E78.00 Pure hypercholesterolemia, unspecified; N18.2 Chronic kidney disease, stage 2 (mild); D69.6 Thrombocytopenia, unspecified; I25.2 Old myocardial infarction; I25.10 Atherosclerotic heart disease of native coronary artery without angina pectoris; F17.210 Nicotine dependence, cigarettes, uncomplicated; R68.0 Hypothermia, not associated with low environmental temperature; Z88.0 Allergy status to penicillin; Z95.1 Presence of aortocoronary bypass graft; Z79.82 Long term (current) use of aspirin; Z79.02 Long term (current) use of antithrombotics/antiplatelets; Z79.899 Other long term (current) drug therapy; Z85.038 Personal history of other malignant neoplasm of large intestine; Z99.81 Dependence on supplemental oxygen; Z78.1 Physical restraint status
CPT/HCPCS: 36415; 36600; 70450; 71045; 71260; 74018; 74177; 80048; 80053; 80076; 82805; 82947; 83605; 83735; 83880; 84100; 84484; 85025; 85610; 85730; 87040; 87077; 87186; 87205; 93005; 94640; 99284; J0692; J0696; J1644; J1940; J2270; J2704; J2919; J3010; J3411; J3475; J3535; J7030; J7040; J7050; J7613; J7614; J7626; J7644; Q9967